=== PATIENT | male | born 1940 | race Caucasian/White ===

== ENCOUNTER 2021-01-29 16:19 | Inpatient (IN) ==
[2021-01-29 17:09] LABS: Basophils # (auto) 0.02 K/uL (0-0.2); Basophils % (auto) 0.1 %; Eosinophils # (auto) 0.19 K/uL (0-0.5); Eosinophils % (auto) 1.3 %; Hematocrit (blood only) 41.7 % (42-52); Hemoglobin 14.8 g/dL (14.0-18.0); Immature Granulocytes # (auto) 0.15 K/uL (0.00-0.02); Lymphocytes # (auto) 1.71 K/uL (1.2-3.4); Lymphocytes % (auto) 11.8 %; Mean Corpuscular Hgb Conc 35.5 g/dL (32-36); Mean Corpuscular Volume 81.8 fL (80-100); Mean Platelet Volume 10.5 fL (7.4-10.4); Monocytes # (auto) 0.99 K/uL (0.11-0.59); Monocytes % (auto) 6.8 %; Neutrophils # (auto) 11.44 K/uL (1.4-6.5); Platelet Count 144 K/uL (130-400); RDW Standard Deviation 41.9 fL (36.4-46.3)
[2021-01-29 17:26] LABS: Albumin Globulin Ratio 1.2 (0.9-2); Albumin Level 3.7 gm/dl (3.4-5.0); BUN Creatinine Ratio 17.8 (10-20); Bilirubin,Total 1.4 mg/dl (0.2-1); Calcium 9.5 mg/dl (8.5-10.1); Est GFR (African American) 57.8 ml/min; Est GFR (Non-African American) 49.9 ml/min; Globulin 3.2 gm/dl (2.5-4.0); Potassium 4.4 mmol/L (3.5-5.1); Total Protein 6.9 gm/dl (6.4-8.2)
[2021-01-29 17:35] LABS: INR 1.1 (0.9-1.1); Partial Thromboplastin Ratio 0.9; Partial Thromboplastin Time 24.9 Seconds (21.0-31.0); Prothrombin Time 10.9 Seconds (9.0-12.0)
[2021-01-29] MEDS ORDERED: SODIUM CHLORIDE 0.9% 1000ML 1,000 ML IV SCH ×2 (18:15→23:38)
[2021-01-29] MEDS ORDERED: ACETAMINOPHEN 1,000 MG/100 ML VIAL IV STA (18:15)
[2021-01-29 18:32] LABS: Appearance Urine Clear (Clear); Bacteria Urine Automated Negative (Negative); Bilirubin Urine Negative (Negative); Blood Urine Trace (Negative); Cast Urine Automated 0 /lpf (0-5); Color Urine Yellow; Epithelial Cell Urine Auto 0-5 /lpf (0-5); Glucose Urine UA Negative (Negative); Ketones Urine Negative (Negative); Leukocyte Esterase Urine Negative (Negative); Nitrite Urine Negative (Negative); Protein Urine Negative (Negative); RBC Urine Automated 0-4 /hpf (0-4); Specific Gravity Urine 1.012 (1.000-1.030); Urobilinogen Urine Negative (Negative); WBC Urine Automated 0 /hpf (0-5); pH Urine 8.5 (4.5-7.5)
--- NOTE | 2021-01-29 18:57 | XRay Report ---
XR pelvis 1-2V routine CLINICAL HISTORY: trauma COMPARISON: None. DISCUSSION: No definite acute fracture or dislocation seen, however evaluation is significantly limited due to se mary diffuse osteopenia, soft tissue edema and multiple gas-filled loops of bowel within upper limits of normal for size. Vascular stent is seen projecting to the anatomical region of aorta. IMPRESSION: As above. ACT 112: Negative or not required by law. The above report was generated using voice recognition software. It may contain grammatical, syntax o r spelling errors. Electronically signed by: Leia Rowan DO 01/29/2021 6:55 PM
--- NOTE | 2021-01-29 19:10 | XRay Report ---
XR chest 1V portable CLINICAL HISTORY: trauma COMPARISON STUDY: No previous studies for comparison. FINDINGS: No pneumothorax. No pleural effusion. Patchy reticular nodular opacities are seen at the right lower lung and might represent atelectasis o r infiltrate. Cardiomediastinal silhouette is within normal limits in size. No significant pulmonary vascular congestion.. Aorta is tortuous and calcified. Osseous structures: Osteopenia. Vertebral bodies are not well seen. IMPRESSION: 1. Opacities at the right mid-lower lung region might represent atelectasis or infiltrative process. 2. The rest of findings as above. ACT 112: Negative or not required by law. The above report was generated using voice recognition software. It may contain grammatical, syntax o r spelling errors. Electronically signed by: Leia Rowan DO 01/29/2021 7:08 PM
--- NOTE | 2021-01-29 19:35 | CT Scan Report ---
CT head/brain wo con CLINICAL HISTORY: trauma COMPARISON STUDY: No previous studies for comparison. TECHNIQUE: Axial CT of the brain is performed from the vertex to the skull base. IV contrast was not administered for this examination. A dose lowering technique was utilized adhering to the principles of ALARA. CT DOSE: FINDINGS: No intra or extra-axial mass lesions are visualized. There is no CT evidence of acute cortical infarc tion. There is no evidence of midline shift. There is no acute hemorrhage. No acute depressed calvar ial fractures are visualized. There are patchy white matter hypodensities likely on a small vessel basis. Atrophic changes of brain parenchyma are seen and associated with ex vacuo dilatation of ventricles. There is no evidence of acute sinusitis IMPRESSION: 1. No acute intracranial hemorrhage, no midline shift or space occupying lesions. 2. No acute depressed skull fractures seen. 3. Atrophic changes of brain parenchyma and chronic small vessel ischemia. ACT 112: Negative or not required by law. The above report was generated using voice recognition software. It may contain grammatical, syntax o r spelling errors. Electronically signed by: Leia Rowan DO 01/29/2021 7:33 PM
--- NOTE | 2021-01-29 19:41 | CT Scan Report ---
CT OF THE CERVICAL SPINE CLINICAL HISTORY: trauma COMPARISON STUDY: No previous studies for comparison. CT DOSE: TECHNIQUE: CT scan of the cervical spine was performed from the skull base to the thoracic inlet. Dadie ges are reviewed in the axial, sagittal, and coronal planes. IV contrast was not administered for thi s examination. A dose lowering technique was utilized adhering to the principles of ALARA. FINDINGS: The visualized portions of the lung apices reveal no evidence of pneumothorax. The prevertebral soft tissues are normal. No fractures or subluxations are visualized. Evaluation is limited due to osteopenia. Vertebral body heights are maintained. Multilevel intervertebral disc space narrowing with posterior osteophytes are seen. Minimal narrowing of the central canal is seen at the C6-C7 level associated with posterior osteophyt es and uncovertebral joint space narrowing. Mild neural foraminal narrowing is seen on the right at the C5-C6 level. IMPRESSION: No acute fracture or traumatic malalignment. Multilevel degenerative changes as detailed above. ACT 112: Negative or not required by law. The above report was generated using voice recognition software. It may contain grammatical, syntax o r spelling errors. Electronically signed by: Leia Rowan DO 01/29/2021 7:39 PM
--- NOTE | 2021-01-29 19:46 | CT Scan Report ---
CT thoracic spine wo con CT DOSE: 2779.34 mGy.cm CLINICAL HISTORY: trauma TECHNIQUE: A dose lowering technique was utilized adhering to the principles of ALARA. COMPARISON STUDY: None. FINDINGS: Mild thoracic dextroscoliosis is seen. Osseous structures are diffusely demineralized. No acute fract ure or traumatic malalignment is seen. No pneumothorax is demonstrated. Mild centrilobular upper lobe predominant emphysema is seen. Normal thoracic kyphosis is preserved. Vertebral body heights are maintained. Few intervertebral disc spaces are slightly narrowed and show anterior osteophytes. Central canal is patent. No significant neural foraminal stenosis is seen. IMPRESSION: No evidence of acute fracture or traumatic malalignment. Osteopenia. Multilevel degenerative changes as detailed above. ACT 112: Negative or not required by law. The above report was generated using voice recognition software. It may contain grammatical, syntax o r spelling errors. Electronically signed by: Leia Rowan DO 01/29/2021 7:44 PM
[2021-01-29] MEDS ORDERED: ALBUT/IPRATROP 3MG/0.5MG NEB 3 ML VIAL NEB STA (19:57)
[2021-01-29] MEDS ORDERED: PIPERACILLIN/TAZOBACTAM 4.5 GM/120 ML BAG IV ONE (19:58)
[2021-01-29] MEDS ORDERED: PIPERACILL/TAZOBAC CONSULT ACTIVE PRN (19:58)
--- NOTE | 2021-01-29 20:00 | CT Scan Report ---
CT lumbar spine wo con CT DOSE: CLINICAL HISTORY: trauma TECHNIQUE: Helical images were acquired in transverse plane. Reformatted sagittal and coronal images were reviewed. A dose lowering technique was utilized adhering to the principles of ALARA. CONTRAST: No contrast was administered COMPARISON STUDY: None. FINDINGS: Transverse fracture deformity of the L1 is seen with mild decrease in vertebral body height. Fracture line is extending from anterior to posterior aspect of the body of the L1 without evidence of involv ement of posterior elements. Transverse and spinous processes are preserved. No narrowing of the cent ral canal is seen at this level. No definite other fractures are seen seen however evaluation is limited due to diffuse osteopenia. Minimal anterolisthesis of L4 on L5 is seen. Multilevel intervertebral disc space narrowing with subchondral sclerosis and cyst as well as osteoph ytes are seen. Minimal central canal stenosis is seen at T12-L1, L2-L3, L3-L4 levels. Prominent bulge of the disc and severe stenosis of the central canal is seen at L4-L5 level and also associated with prominent degenerative/hypertrophic changes of facet joints. Mild neural foraminal stenosis is seen bilaterally. Metallic vascular stent is seen within aortic lumen. Evaluation is limited on this nondedicated exam. IMPRESSION: Transverse fracture of L1 body with mild decrease of its height. Posterior elements are not involved. No central canal stenosis is seen at this level. Report will be sent to emergency Department. Multilevel degenerative changes as detailed above. Osteopenia limits evaluation. Intra-aortic metallic stent graft. ACT 112: Negative or not required by law. The above report was generated using voice recognition software. It may contain grammatical, syntax o r spelling errors. Electronically signed by: Leia Rowan DO 01/29/2021 7:59 PM
--- NOTE | 2021-01-29 20:23 | Emergency Department Note ---
History of Present Illness General Chief complaint: Fall Time Seen by Provider: 01/29/21 17:43 Source: family Mode of arrival: EMS Limitations: altered mental status History of Present Illness Provider complaint: ams, fall overnight Onset (ago): hour(s) Location: head and back Severity: moderate Associated symptoms: + loss of appetite; no headaches or no nausea/vomiting Treatments prior to arrival: none This is an 81-year-old male presents emergency department with family at bedside due to concern for altered mentation and recent fall overnight. Daughter and son-in-law at bedside state patient lives with them, has his own room and bathroom. They state they heard a thud in the middle the night and were concerned that he fell. When they got to his bathroom, the patient had already gotten back up. He admitted he had fallen but stated he was not injured and wanted to go back to sleep. They state patient typically gets up in the middle the night to use the restroom. Patient otherwise been acting his usual state of health prior to the fall earlier that day. After waking up today following the fall, patient has been more confused than usual. Patient began complaining of increasing back pain. They state he does have a history of back pain and does intermittently see a chiropractor however he stated that this was worse than his baseline and due to the concern that he was confused and appeared to be in worsening pain they were concerned for occult traumatic injury given the fall overnight and called 911 to have the patient brought to the emergency room. Patient afebrile and hemodynamically stable here. Patient is confused, however does state that his back hurts and believes he hit his head. Family denies any recent change in medications. No recent fevers or illness. No history of recurrent falls. They state patient does take a low-dose aspirin, no other antiplatelet or anticoagulation therapy. They state they did not find any evidence for injury or trauma when they evaluated him overnight. An order was placed for continuous cardiac monitoring. The monitor shows a rate of _80__ with _normal sinus_ rhythm. Home Medications Medication Instructions Recorded Confirmed Type albuterol sulfate 90 mcg/actuation 2 puff INHALATION Q4 PRN 01/29/21 01/29/21 History aerosol inhaler aspirin 81 mg tablet,delayed 81 mg PO QAM 01/29/21 01/29/21 History release (Aspirin Low Dose) atorvastatin 40 mg tablet 50 mg PO HS 01/29/21 01/29/21 History carvedilol 6.25 mg tablet 6.25 mg PO BID 01/29/21 01/29/21 History fluticasone propionate 110 2 puff INHALATION BID 01/29/21 01/29/21 History mcg/actuation HFA aerosol inhaler (Flovent HFA) losartan 25 mg tablet 25 mg PO QAM 01/29/21 01/29/21 History metformin 500 mg tablet 500 mg PO BID 01/29/21 01/29/21 History Allergies Allergy/AdvReac Type Severity Reaction Status Date / Time ezetimibe [From Vytorin] AdvReac Intermediate Unknown Verified 01/29/21 17:23 simvastatin [From Vytorin] AdvReac Intermediate Unknown Verified 01/29/21 17:23 Past Med/Surg History Social History Smoking Status: Former smoker Preferred Language: Bolivian Communication Ability: Effective Beliefs That Will Affect Care: None marital status: / Current Living Situation: Family How many Children do You have: 1 Feels Safe at Home: Yes Assistive Devices: Denture - Upper and Walker Review of Systems A total of 10 systems reviewed and were otherwise negative All systems reviewed & are unremarkable except as noted in HPI & below Physical Exam Vital Signs Vital Signs - 24 hr 01/29/21 16:48 01/29/21 18:00 01/29/21 18:30 Temperature 36.5 C Temperature Source Oral Pulse Rate 96 H 88 96 H Pulse Rate [Apical] Pulse Rate from SpO2 Sensor 87 97 H Respiratory Rate 24 25 H 21 Respiratory Effort / Characteristics Respiratory Depth Normal Blood Pressure 189/114 H 161/106 H 146/95 H Blood Pressure Mean 139 124 112 Blood Pressure Position Lying Pulse Oximetry 97 96 96 Oxygen Delivery Method Room Air Room Air Fraction of Inspired Oxygen Sepsis Recent Fever Within 48 Hours No Sepsis New/Unexplained Change in Mental Status No Sepsis Action Taken by Nursing No Action Required 01/29/21 19:00 01/29/21 19:30 01/29/21 20:08 Temperature Temperature Source Pulse Rate 88 85 Pulse Rate [Apical] 87 Pulse Rate from SpO2 Sensor 88 85 Respiratory Rate 18 20 14 Respiratory Effort / Characteristics Non-Labored Spontaneous Respiratory Depth Blood Pressure 167/108 H 180/115 H Blood Pressure Mean 127 136 Blood Pressure Position Pulse Oximetry 95 96 95 Oxygen Delivery Method Room Air Room Air Room Air Fraction of Inspired Oxygen 21 Sepsis Recent Fever Within 48 Hours Sepsis New/Unexplained Change in Mental Status Sepsis Action Taken by Nursing GENERAL: alert, well appearing, well nourished, no distress, non-toxic HEAD: nc/at, no evidence of facial trauma, no forrest signs, no raccoon eyes EYE EXAM: normal conjunctiva, PERRL and EOM's grossly intact OROPHARYNX: no exudate, no erythema, lips, buccal mucosa, and tongue normal and mucous membranes are moist NECK: supple, no nuchal rigidity, no adenopathy, non-tender LUNGS: Clear to auscultation. Normal chest wall mechanics, no w/r/r HEART: no murmurs, S1 normal and S2 normal ABDOMEN: abdomen soft, non-tender, normo-active bowel sounds, no masses, no rebound or guarding. BACK: Back is symmetrical on inspection and there is no deformity, tender to palpation over the lower T and upper L spine, no CVA tenderness. No ecchymosis or crepitus. SKIN: no rashes and no bruising UPPER EXTREMITIES: upper extremities are grossly normal. FROM, nml pulses b/l. LOWER EXTREMITIES: No pitting edema. FROM, nml pulses b/l. NEURO EXAM: Alert but confused, cranial nerves II-XII grossly intact, normal speech, no gross weakness of arms, no gross weakness of legs. Gross sensation intact. Course Course 2021: Updated pt and family at bedside. 2027: Discussed with Dr. Bob. He can see him in the morning. 2099: DIscussed with Dr. Nagel. Administered Medications Acetaminophen (Acetaminophen 325 Mg Tab) 650 mg PO Q4H PRN PRN Reason: Pain or Fever Stop: 02/28/21 23:37 Last Admin: 01/30/21 12:23 Dose: 650 mg Documented by: [id number] Aspirin (Aspirin 81 Mg Ectab) 81 mg PO QAM [facility] Stop: 03/01/21 08:59 Last Admin: 01/30/21 08:12 Dose: 81 mg Documented by: [id number] Carvedilol (Carvedilol 6.25 Mg Tab) 6.25 mg PO BID [facility] Stop: 03/01/21 08:59 Last Admin: 01/30/21 19:35 Dose: 6.25 mg Documented by: [id number] Admin: 01/30/21 08:12 Dose: 6.25 mg Documented by: [id number] Docusate Sodium (Docusate Sodium 100 Mg Cap) 100 mg PO BID [facility] Stop: 02/04/21 11:59 Last Admin: 01/30/21 19:35 Dose: 100 mg Documented by: [id number] Admin: 01/30/21 12:23 Dose: 100 mg Documented by: [id number] Fluticasone Furoate (Fluticasone Furoate 100mcg 14 Puffs/Inhaler) 1 puffs INH DAILY [facility] Stop: 03/01/21 08:59 Last Admin: 01/30/21 08:15 Dose: 1 puffs Documented by: [id number] Heparin Sodium (Porcine) (Heparin Sod 5,000 Unit/0.5 Ml Vial) 5,000 units SQ Q12 [facility] Stop: 03/01/21 08:59 Last Admin: 01/30/21 19:34 Dose: 5,000 units Documented by: [id number] Admin: 01/30/21 08:15 Dose: 5,000 units Documented by: [id number] Hydromorphone HCl (Hydromorphone Inj 0.5 Mg/0.5 Ml Syr) 0.5 mg IV Q3H PRN PRN Reason: Pain Stop: 02/13/21 00:08 Last Admin: 01/30/21 22:28 Dose: 0.5 mg Documented by: [id number] Admin: 01/30/21 19:33 Dose: 0.5 mg Documented by: [id number] Admin: 01/30/21 12:46 Dose: 0.5 mg Documented by: [id number] Admin: 01/30/21 06:59 Dose: 0.5 mg Documented by: [id number] Admin: 01/30/21 00:40 Dose: 0.5 mg Documented by: [id number] Doxycycline Hyclate 100 mg/ (Dextrose) 110 mls @ 50 mls/hr IV Q12H [facility] Stop: 02/06/21 00:00 Last Infusion: 01/30/21 14:38 Dose: 0 mls/hr Documented by: [id number] Admin: 01/30/21 12:16 Dose: 50 mls/hr Documented by: [id number] Infusion: 01/30/21 02:54 Dose: 0 mls/hr Documented by: [id number] Admin: 01/30/21 01:01 Dose: 50 mls/hr Documented by: [id number] Piperacillin Sod/Tazobactam (Sod 3.375 gm/ Dextrose) 115 mls @ 28.75 mls/hr IV Q8H [facility]; Protocol Stop: 02/06/21 00:00 Last Infusion: 01/30/21 21:14 Dose: 0 mls/hr Documented by: [id number] Admin: 01/30/21 17:12 Dose: 28.8 mls/hr Documented by: [id number] Infusion: 01/30/21 16:27 Dose: 0 mls/hr Documented by: [id number] Infusion: 01/30/21 14:53 Dose: 28.8 mls/hr Documented by: [id number] Infusion: 01/30/21 12:19 Dose: 0 mls/hr Documented by: [id number] Admin: 01/30/21 09:52 Dose: 28.8 mls/hr Documented by: [id number] Infusion: 01/30/21 06:01 Dose: 0 mls/hr Documented by: [id number] Admin: 01/30/21 02:54 Dose: 28.8 mls/hr Documented by: [id number] Insulin Aspart (Insulin Aspart 100 Units/Ml 3 Ml Pen) 0 units SC ACHS [facility] Stop: 03/01/21 07:29 Last Admin: 01/30/21 21:10 Dose: 2 units Documented by: [id number] Cosigned by: [id number] Admin: 01/30/21 17:49 Dose: 3 units Documented by: [id number] Cosigned by: [id number] Admin: 01/30/21 12:23 Dose: 2 units Documented by: [id number] Cosigned by: [id number] Admin: 01/30/21 08:21 Dose: 2 units Documented by: [id number] Cosigned by: [id number] Losartan Potassium (Losartan Potassium 25 Mg Tab) 25 mg PO QAM [facility] Stop: 03/01/21 08:59 Last Admin: 01/30/21 08:12 Dose: 25 mg Documented by: [id number] Magnesium Oxide (Magnesium Oxide 400 Mg Tab) 400 mg PO QAM [facility] Stop: 03/01/21 14:44 Last Admin: 01/30/21 15:47 Dose: 400 mg Documented by: [id number] Ondansetron HCl (Ondansetron Inj 2 Mg/Ml 2 Ml Vial) 4 mg IV Q6H PRN PRN Reason: Nausea Stop: 02/28/21 23:37 Last Admin: 01/30/21 15:46 Dose: 4 mg Documented by: [id number] Tizanidine HCl (Tizanidine Hcl 4 Mg Tablet) 2 mg PO TID [facility] Stop: 02/02/21 20:59 Last Admin: 01/30/21 19:35 Dose: 2 mg Documented by: [id number] Tramadol HCl (Tramadol Hcl 50 Mg Tablet) 25 mg PO Q6H PRN PRN Reason: Pain Stop: 02/28/21 23:37 Last Admin: 01/30/21 15:58 Dose: 25 mg Documented by: [id number] Admin: 01/30/21 08:11 Dose: 25 mg Documented by: [id number] Discontinued Medications Albuterol (Albut/Ipratrop 3mg/0.5mg Neb 3 Ml Vial) 3 ml NEB NOW STA Stop: 01/29/21 19:58 Last Admin: 01/29/21 20:07 Dose: 3 ml Documented by: [id number] Fentanyl Citrate (Fentanyl Citrate 100 Mcg/2 Ml Vial) 50 mcg IV NOW STA Stop: 01/29/21 20:33 Last Admin: 01/29/21 21:00 Dose: 50 mcg Documented by: [id number] Acetaminophen (Ofirmev) 1,000 mg in 100 mls @ 400 mls/hr IV NOW STA Stop: 01/29/21 18:29 Last Infusion: 01/29/21 20:10 Dose: 0 mls/hr Documented by: [id number] Admin: 01/29/21 19:04 Dose: 400 mls/hr Documented by: [id number] Sodium Chloride (Nss 1000ml) 1,000 mls @ 125 mls/hr IV .Q8H [facility] Stop: 02/28/21 18:14 Last Infusion: 01/29/21 23:39 Dose: 0 mls/hr Documented by: [id number] Admin: 01/29/21 19:04 Dose: 125 mls/hr Documented by: [id number] Piperacillin Sod/Tazobactam Sod (Zosyn) 4.5 gm in 120 mls @ 240 mls/hr IV NOW ONE Stop: 01/29/21 20:27 Last Infusion: 01/29/21 21:03 Dose: 0 mls/hr Documented by: [id number] Admin: 01/29/21 20:11 Dose: 240 mls/hr Documented by: [id number] Sodium Chloride (Nss 1000ml) 1,000 mls @ 80 mls/hr IV .[id number] [facility] Stop: 01/30/21 12:07 Last Infusion: 01/30/21 13:03 Dose: 0 mls/hr Documented by: [id number] Admin: 01/30/21 00:31 Dose: 80 mls/hr Documented by: [id number] Medical Decision Making Differential Diagnosis Differential diagnoses includes but is not limited to toxic, metabolic, infectious, traumatic, cardiac, neurologic, hematologic, psychiatric and inflammatory etiologies. Medical Records Attestation: I reviewed the patient's medical records. Home Medications Current Medication List: was personally reviewed by me Laboratory Data Attestation: I reviewed the patient's lab results. Result diagrams: 01/30/21 05:25 01/30/21 05:25 Lab Results 01/29/21 01/29/21 01/29/21 Range/Units 16:37 16:37 16:37 WBC 14.50 H (4.8-10.8) K/uL RBC 5.10 (4.7-6.1) M/uL Hgb 14.8 (14.0-18.0) g/dL Hct 41.7 L (42-52) % MCV 81.8 (80-100) fL MCH 29.0 (25-34) pg MCHC 35.5 (32-36) g/dL RDW Std Deviation 41.9 (36.4-46.3) fL RDW Coeff of Ian 14.0 (11.5-14.5) % Plt Count 144 (130-400) K/uL MPV 10.5 H (7.4-10.4) fL Immature Gran % (Auto) 1.0 % Neut % (Auto) 79.0 % Lymph % (Auto) 11.8 % [place]ner % (Auto) 6.8 % Eos % (Auto) 1.3 % Baso % (Auto) 0.1 % Neut # (Auto) 11.44 H (1.4-6.5) K/uL Lymph # (Auto) 1.71 (1.2-3.4) K/uL [place]ner # (Auto) 0.99 H (0.11-0.59) K/uL Eos # (Auto) 0.19 (0-0.5) K/uL Baso # (Auto) 0.02 (0-0.2) K/uL Immature Gran # (Auto) 0.15 H (0.00-0.02) K/uL PT 10.9 (9.0-12.0) Seconds INR 1.1 (0.9-1.1) APTT 24.9 (21.0-31.0) Seconds PTT Ratio 0.9 ABG pH (7.35-7.45) ABG pCO2 (35-46) mmHg ABG pO2 (80-95) mmHg ABG HCO3 (19-24) mmol/L ABG O2 Saturation (90-95) % ABG Base Excess (-9-1.8) mEq/L Ken Test (Pos) Barometric Pressure mm/Hg Oxygen Given Sodium 137 (136-145) mmol/L Potassium 4.4 (3.5-5.1) mmol/L Chloride 109 H (98-107) mmol/L Carbon Dioxide 24 (21-32) mmol/L Anion Gap 4.0 (3-11) BUN 24 H (7-18) mg/dl Creatinine 1.32 (0.6-1.4) mg/dl Est Cr Clr Drug Dosing 46.0 ml/min Est GFR ( Amer) 57.8 ml/min Est GFR (Non-Af Amer) 49.9 ml/min BUN/Creatinine Ratio 17.8 (10-20) Glucose 177 H (70-99) mg/dl Calcium 9.5 (8.5-10.1) mg/dl Total Bilirubin 1.4 H (0.2-1) mg/dl AST 16 (15-37) U/L ALT 29 (12-78) U/L Alkaline Phosphatase 75 (45-117) U/L Troponin I 0.071 H* (0-0.045) ng/ml Total Protein 6.9 (6.4-8.2) gm/dl Albumin 3.7 (3.4-5.0) gm/dl Globulin 3.2 (2.5-4.0) gm/dl Albumin/Globulin Ratio 1.2 (0.9-2) Specimen Hemolysis Urine Color Urine Appearance (Clear) Urine pH (4.5-7.5) Ur Specific [place] (1.000-1.030) Urine Protein (Negative) Urine Glucose (UA) (Negative) Urine Ketones (Negative) Urine Blood (Negative) Urine Nitrite (Negative) Urine Bilirubin (Negative) Urine Urobilinogen (Negative) Ur Leukocyte Esterase (Negative) Urine WBC (Auto) (0-5) /hpf Urine RBC (Auto) (0-4) /hpf U Hyaline Cast (Auto) (0-5) /lpf U Epithel Cells (Auto) (0-5) /lpf Urine Bacteria (Auto) (Negative) COVID-19 Eval Order SARS-CoV-2 (PCR) (Negative) 01/29/21 01/29/21 01/29/21 Range/Units 17:40 20:28 20:28 WBC (4.8-10.8) K/uL RBC (4.7-6.1) M/uL Hgb (14.0-18.0) g/dL Hct (42-52) % MCV (80-100) fL MCH (25-34) pg MCHC (32-36) g/dL RDW Std Deviation (36.4-46.3) fL RDW Coeff of Ian (11.5-14.5) % Plt Count (130-400) K/uL MPV (7.4-10.4) fL Immature Gran % (Auto) % Neut % (Auto) % Lymph % (Auto) % Sumner % (Auto) % Eos % (Auto) % Baso % (Auto) % Neut # (Auto) (1.4-6.5) K/uL Lymph # (Auto) (1.2-3.4) K/uL [place]ner # (Auto) (0.11-0.59) K/uL Eos # (Auto) (0-0.5) K/uL Baso # (Auto) (0-0.2) K/uL Immature Gran # (Auto) (0.00-0.02) K/uL PT (9.0-12.0) Seconds INR (0.9-1.1) APTT (21.0-31.0) Seconds PTT Ratio ABG pH (7.35-7.45) ABG pCO2 (35-46) mmHg ABG pO2 (80-95) mmHg ABG HCO3 (19-24) mmol/L ABG O2 Saturation (90-95) % ABG Base Excess (-9-1.8) mEq/L Ken Test (Pos) Barometric Pressure mm/Hg Oxygen Given Sodium (136-145) mmol/L Potassium (3.5-5.1) mmol/L Chloride (98-107) mmol/L Carbon Dioxide (21-32) mmol/L Anion Gap (3-11) BUN (7-18) mg/dl Creatinine (0.6-1.4) mg/dl Est Cr Clr Drug Dosing ml/min Est GFR ( Amer) ml/min Est GFR (Non-Af Amer) ml/min BUN/Creatinine Ratio (10-20) Glucose (70-99) mg/dl Calcium (8.5-10.1) mg/dl Total Bilirubin (0.2-1) mg/dl AST (15-37) U/L ALT (12-78) U/L Alkaline Phosphatase (45-117) U/L Troponin I (0-0.045) ng/ml Total Protein (6.4-8.2) gm/dl Albumin (3.4-5.0) gm/dl Globulin (2.5-4.0) gm/dl Albumin/Globulin Ratio (0.9-2) Specimen Hemolysis Urine Color Yellow Urine Appearance Clear (Clear) Urine pH 8.5 H (4.5-7.5) Ur Specific [place] 1.012 (1.000-1.030) Urine Protein Negative (Negative) Urine Glucose (UA) Negative (Negative) Urine Ketones Negative (Negative) Urine Blood Trace H (Negative) Urine Nitrite Negative (Negative) Urine Bilirubin Negative (Negative) Urine Urobilinogen Negative (Negative) Ur Leukocyte Esterase Negative (Negative) Urine WBC (Auto) 0 (0-5) /hpf Urine RBC (Auto) 0-4 (0-4) /hpf U Hyaline Cast (Auto) 0 (0-5) /lpf U Epithel Cells (Auto) 0-5 (0-5) /lpf Urine Bacteria (Auto) Negative (Negative) COVID-19 Eval Order Covid19 at [facility] SARS-CoV-2 (PCR) NEGATIVE (Negative) 01/29/21 Range/Units 20:52 WBC (4.8-10.8) K/uL RBC (4.7-6.1) M/uL Hgb (14.0-18.0) g/dL Hct (42-52) % MCV (80-100) fL MCH (25-34) pg MCHC (32-36) g/dL RDW Std Deviation (36.4-46.3) fL RDW Coeff of Ian (11.5-14.5) % Plt Count (130-400) K/uL MPV (7.4-10.4) fL Immature Gran % (Auto) % Neut % (Auto) % Lymph % (Auto) % [place] % (Auto) % Eos % (Auto) % Baso % (Auto) % Neut # (Auto) (1.4-6.5) K/uL Lymph # (Auto) (1.2-3.4) K/uL [place] # (Auto) (0.11-0.59) K/uL Eos # (Auto) (0-0.5) K/uL Baso # (Auto) (0-0.2) K/uL Immature Gran # (Auto) (0.00-0.02) K/uL PT (9.0-12.0) Seconds INR (0.9-1.1) APTT (21.0-31.0) Seconds PTT Ratio ABG pH 7.60 H* (7.35-7.45) ABG pCO2 22 L (35-46) mmHg ABG pO2 90 (80-95) mmHg ABG HCO3 21 (19-24) mmol/L ABG O2 Saturation 97.9 H (90-95) % ABG Base Excess 1.3 (-9-1.8) mEq/L Ken Test Pos (Pos) Barometric Pressure 732.7 mm/Hg Oxygen Given ROOM AIR Sodium (136-145) mmol/L Potassium (3.5-5.1) mmol/L Chloride (98-107) mmol/L Carbon Dioxide (21-32) mmol/L Anion Gap (3-11) BUN (7-18) mg/dl Creatinine (0.6-1.4) mg/dl Est Cr Clr Drug Dosing ml/min Est GFR ( Amer) ml/min Est GFR (Non-Af Amer) ml/min BUN/Creatinine Ratio (10-20) Glucose (70-99) mg/dl Calcium (8.5-10.1) mg/dl Total Bilirubin (0.2-1) mg/dl AST (15-37) U/L ALT (12-78) U/L Alkaline Phosphatase (45-117) U/L Troponin I (0-0.045) ng/ml Total Protein (6.4-8.2) gm/dl Albumin (3.4-5.0) gm/dl Globulin (2.5-4.0) gm/dl Albumin/Globulin Ratio (0.9-2) Specimen Hemolysis Urine Color Urine Appearance (Clear) Urine pH (4.5-7.5) Ur Specific [place] (1.000-1.030) Urine Protein (Negative) Urine Glucose (UA) (Negative) Urine Ketones (Negative) Urine Blood (Negative) Urine Nitrite (Negative) Urine Bilirubin (Negative) Urine Urobilinogen (Negative) Ur Leukocyte Esterase (Negative) Urine WBC (Auto) (0-5) /hpf Urine RBC (Auto) (0-4) /hpf U Hyaline Cast (Auto) (0-5) /lpf U Epithel Cells (Auto) (0-5) /lpf Urine Bacteria (Auto) (Negative) COVID-19 Eval Order SARS-CoV-2 (PCR) (Negative) Imaging Data Radiologist's Impression: Cervical Spine CT 01/29/21 18:15 CT OF THE CERVICAL SPINE CLINICAL HISTORY: trauma COMPARISON STUDY: No previous studies for comparison. CT DOSE: TECHNIQUE: CT scan of the cervical spine was performed from the skull base to the thoracic inlet. Images are reviewed in the axial, sagittal, and coronal planes. IV contrast was not administered for this examination. A dose lowering technique was utilized adhering to the principles of ALARA. FINDINGS: The visualized portions of the lung apices reveal no evidence of pneumothorax. The prevertebral soft tissues are normal. No fractures or subluxations are visualized. Evaluation is limited due to osteopenia. Vertebral body heights are maintained. Multilevel intervertebral disc space narrowing with posterior osteophytes are seen. Minimal narrowing of the central canal is seen at the C6-C7 level associated with posterior osteophytes and uncovertebral joint space narrowing. Mild neural foraminal narrowing is seen on the right at the C5-C6 level. IMPRESSION: No acute fracture or traumatic malalignment. Multilevel degenerative changes as detailed above. ACT 112: Negative or not required by law. The above report was generated using voice recognition software. It may contain grammatical, syntax or spelling errors. Electronically signed by: Leia Rowan DO 01/29/2021 7:39 PM Chest X-Ray 01/29/21 18:15 XR chest 1V portable CLINICAL HISTORY: trauma COMPARISON STUDY: No previous studies for comparison. FINDINGS: No pneumothorax. No pleural effusion. Patchy reticular nodular opacities are seen at the right lower lung and might represent atelectasis or infiltrate. Cardiomediastinal silhouette is within normal limits in size. No significant pulmonary vascular congestion.. Aorta is tortuous and calcified. Osseous structures: Osteopenia. Vertebral bodies are not well seen. IMPRESSION: 1. Opacities at the right mid-lower lung region might represent atelectasis or infiltrative process. 2. The rest of findings as above. ACT 112: Negative or not required by law. The above report was generated using voice recognition software. It may contain grammatical, syntax or spelling errors. Electronically signed by: Leia Rowan DO 01/29/2021 7:[address] 01/29/21 18:15 CT head/brain wo con CLINICAL HISTORY: trauma COMPARISON STUDY: No previous studies for comparison. TECHNIQUE: Axial CT of the brain is performed from the vertex to the skull base. IV contrast was not administered for this examination. A dose lowering technique was utilized adhering to the principles of ALARA. CT DOSE: FINDINGS: No intra or extra-axial mass lesions are visualized. There is no CT evidence of acute cortical infarction. There is no evidence of midline shift. There is no acute hemorrhage. No acute depressed calvarial fractures are visualized. There are patchy white matter hypodensities likely on a small vessel basis. Atrophic changes of brain parenchyma are seen and associated with ex vacuo dilat ation of ventricles. There is no evidence of acute sinusitis IMPRESSION: 1. No acute intracranial hemorrhage, no midline shift or space occupying lesions. 2. No acute depressed skull fractures seen. 3. Atrophic changes of brain parenchyma and chronic small vessel ischemia. ACT 112: Negative or not required by law. The above report was generated using voice recognition software. It may contain grammatical, syntax or spelling errors. Electronically signed by: Leia Rowan DO 01/29/2021 7:[address] 01/29/21 18:15 CT lumbar spine wo con CT DOSE: CLINICAL HISTORY: trauma TECHNIQUE: Helical images were acquired in transverse plane. Reformatted sagittal and coronal images were reviewed. A dose lowering technique was utilized adhering to the principles of ALARA. CONTRAST: No contrast was administered COMPARISON STUDY: None. FINDINGS: Transverse fracture deformity of the L1 is seen with mild decrease in vertebral body height. Fracture line is extending from anterior to posterior aspect of the body of the L1 without evidence of involvement of posterior elements. Transverse and spinous processes are preserved. No narrowing of the central canal is seen at this level. No definite other fractures are seen seen however evaluation is limited due to diffuse osteopenia. Minimal anterolisthesis of L4 on L5 is seen. Multilevel intervertebral disc space narrowing with subchondral sclerosis and cyst as well as osteophytes are seen. Minimal central canal stenosis is seen at T12-L1, L2-L3, L3-L4 levels. Prominent bulge of the disc and severe stenosis of the central canal is seen at L4-L5 level and also associated with prominent degenerative/hypertrophic changes of facet joints. Mild neural foraminal stenosis is seen bilaterally. Metallic vascular stent is seen within aortic lumen. Evaluation is limited on this nondedicated exam. IMPRESSION: Transverse fracture of L1 body with mild decrease of its height. Posterior elements are not involved. No central canal stenosis is seen at this level. Report will be sent to emergency Department. Multilevel degenerative changes as detailed above. Osteopenia limits evaluation. Intra-aortic metallic stent graft. ACT 112: Negative or not required by law. The above report was generated using voice recognition software. It may contain grammatical, syntax or spelling errors. Electronically signed by: Leia Rowan DO 01/29/2021 7:59 PM Pelvis X-Ray 01/29/21 18:15 XR pelvis 1-2V routine CLINICAL HISTORY: trauma COMPARISON: None. DISCUSSION: No definite acute fracture or dislocation seen, however evaluation is significantly limited due to severe diffuse osteopenia, soft tissue edema and multiple gas-filled loops of bowel within upper limits of normal for size. Vascular stent is seen projecting to the anatomical region of aorta. IMPRESSION: As above. ACT 112: Negative or not required by law. The above report was generated using voice recognition software. It may contain grammatical, syntax or spelling errors. Electronically signed by: Leia Rowan DO 01/29/2021 6:[address] 01/29/21 18:15 CT thoracic spine wo con CT DOSE: 2779.34 mGy.cm CLINICAL HISTORY: trauma TECHNIQUE: A dose lowering technique was utilized adhering to the principles of ALARA. COMPARISON STUDY: None. FINDINGS: Mild thoracic dextroscoliosis is seen. Osseous structures are diffusely demineralized. No acute fracture or traumatic malalignment is seen. No pneumothorax is demonstrated. Mild centrilobular upper lobe predominant emphysema is seen. Normal thoracic kyphosis is preserved. Vertebral body heights are maintained. Few intervertebral disc spaces are slightly narrowed and show anterior osteophytes. Central canal is patent. No significant neural foraminal stenosis is seen. IMPRESSION: No evidence of acute fracture or traumatic malalignment. Osteopenia. Multilevel degenerative changes as detailed above. ACT 112: Negative or not required by law. The above report was generated using voice recognition software. It may contain grammatical, syntax or spelling errors. Electronically signed by: Leia Rowan DO 01/29/2021 7:44 PM MDM Narrative This is an 81-year-old male who presents with family due to concern for altered mental status and recent fall overnight. Patient initially evaluated from a trauma perspective, he was hemodynamically stable and afebrile, complaining of concern for head injury as well as back pain. Per family patient was altered compared to his baseline. CT and x-ray imaging revealed an L1 fracture without retropulsion or central canal compromise as well as a pneumonia noted on chest x-ray. Family denied any recent URI symptoms or fevers. They denied any choking or gagging episodes or history of dysphagia to suggest aspiration however patient covered with Zosyn as a precaution. Patient also found to have an elevated troponin. Is unclear if this could have contributed to the fall ove rnight or is secondary to the current infection. Patient remained hemodynamic stable while in the emergency room. No other evidence of acute trauma was found. Case discussed with hospitalist for additional evaluation and management after discussion with the family. Family verbalized understanding was in agreement with plan. An order was placed for continuous cardiac monitoring. The monitor shows a rate of _82_ with _normal sinus_ rhythm. Impression & Plan AMS (altered mental status), Fracture of lumbar spine, Elevated troponin, Back pain, Pneumonia, Hypomagnesemia Discharge Plan Visit Data Chief Complaint: Fall ED Provider: Yelena Medellin Discharge Problem: AMS (altered mental status), Fracture of lumbar spine, Elevated troponin, Back pain, Pneumonia, Hypomagnesemia Patient Disposition: Admitted As Inpatient Discharge Instructions Interventions: ED Discharge Assessment Last Done: 01/29/21 23:09
[2021-01-29] MEDS ORDERED: fentaNYL citrate 100 MCG/2 ML VIAL IV STA (20:32)
[2021-01-29 21:08] LABS: Base Excess ABG 1.3 mEq/L (-9-1.8); HCO3 ABG 21 mmol/L (19-24); Oxygen Saturation ABG 97.9 % (90-95); PCO2 ABG 22 mmHg (35-46); PO2 ABG 90 mmHg (80-95)
[2021-01-29 21:14] LABS: Allen Test Pos (Pos)
[2021-01-29 22:54] LABS: Troponin I 0.071 ng/ml (0-0.045)
[2021-01-29] MEDS ORDERED: ALBUTEROL HFA 8 GM INHALER INH PRN (23:38)
[2021-01-29] MEDS ORDERED: ALBUT/IPRATROP 3MG/0.5MG NEB 3 ML VIAL NEB PRN (23:38)
[2021-01-29] MEDS ORDERED: DEXTROSE 50% 50 ML SYRINGE IV PRN (23:45)
[2021-01-29] MEDS ORDERED: GLUCOSE 40% GEL 15 GM TUBE PO PRN (23:45)
[2021-01-29] MEDS ORDERED: GLUCOSE 10 TABS/TUBE PO PRN (23:45)
[2021-01-29] MEDS ORDERED: CARBOHYDRATES FOR HYPOGLYCEMIA PO PRN (23:45)
[2021-01-29] MEDS ORDERED: GLUCAGON FOR INJ 1 MG VIAL IM PRN (23:45)
--- NOTE | 2021-01-29 23:46 | History and Physical Report ---
DATE OF ADMISSION: 01/29/2021. CHIEF COMPLAINT: Status post fall, confusion. HISTORY OF PRESENT ILLNESS: An 81-year-old male with past medical history significant for type 2 diabetes, hyperlipidemia, aneurysm of common iliac artery, internal iliac artery, and femoral arteries, hypertension, chronic kidney disease stage III, status post abdominal aortic aneurysm repair, who lives at home with his son. Comes because of fall. As per the family, they heard a fall last night around 4:00 a.m. When they went and checked him, he was standing and complaining of headache and backache and he seemed confused. He was talking about his and seemed confused. In the morning, he was able to eat and drink, but he was not getting better. Complaining of back pain and he was brought into the hospital. Here, CT of the head was okay and imaging studies showed transverse fracture of L1 body with mild decrease of its height. The patient has complaints of back pain and was given a dose of fentanyl. Currently, he says he is comfortable, but somewhat drowsy. Denies any chest pain, denies any nausea, denies abdominal pain, denies any headache. Says he is feeling comfortable, could not get much history from the patient currently. As per the daughter, he was otherwise doing okay. He ambulates with a walker. He can take care of himself. He eats and swallows okay. There is no fevers, no nausea, no diarrhea. The patient complained that he was feeling somewhat dizzy and as per the daughter, he was having some cough. ALLERGIES: VYTORIN. PAST MEDICAL HISTORY: As mentioned above. PAST SURGICAL HISTORY: Abdominal aortic aneurysm repair, cataract surgery, appendectomy. MEDICATIONS: The patient is on albuterol 2 puffs inhalation q. 4 hours p.r.n., aspirin 81 mg p.o. daily, atorvastatin 40 mg p.o. at bedtime, Coreg 6.25 mg p.o. b.i.d., Flovent HFA 2 puffs inhalation b.i.d., losartan 25 mg p.o. a.m., Metformin 500 mg p.o. b.i.d. FAMILY HISTORY: Significant for mother has Alzheimer disease, diabetes, glaucoma, heart disease, triple bypass; father has heart attack; brother has heart attack. SOCIAL HISTORY: , currently lives with his family. Quit smoking in 1995. No alcohol use. No drug use. REVIEW OF SYSTEMS: As per HPI. Rest of the review of systems, could not obtain. PHYSICAL EXAMINATION: GENERAL: The patient is alert and awake, could tell his name, not in acute distress. VITAL SIGNS: Temperature 36.5, pulse 84, respiratory rate 23, blood pressure 150/95, oxygen 98% on 2 liters. HEENT: Pupils equal, round and reactive to light. Oral mucosa moist. NECK: No neck masses. CARDIOVASCULAR: S1 and S2 heard. Regular rate and rhythm. No murmur, no gallop. RESPIRATORY SYSTEM: Normal AP diameter. No accessory muscle use. No wheezing, no crackles. ABDOMEN: Soft, bowel sounds present. Mild abdominal discomfort. CENTRAL NERVOUS SYSTEM: Alert and awake, oriented to name. Obeys simple commands. Moves extremities. EXTREMITIES: No edema, no erythema. LABORATORY DATA: WBC 14.5, hemoglobin 14.8, hematocrit 41.7, platelets 144. PT 10.9, INR 1.1, APTT 24.9. ABG, pH of 7.6, pCO2 of 22, pO2 of 19, bicarbonate 21, oxygen saturation 97%. Sodium 137, potassium 4.4, chloride 109, bicarbonate 24, BUN 24, creatinine 1.3, serum glucose 177, calcium 9.5, total bilirubin 1.4, AST 16, ALT 29, alkaline phosphatase 75. Urinalysis negative. SARS-CoV-2 PCR negative. IMAGING DATA: Thoracic spine CT, no acute findings. Pelvic x-ray, no acute findings. Vascular stent is seen in anatomic region of aorta. Lumbar spine CT, transverse fracture of L1 body with decrease of its height. Posterior elements are not involved. No central canal stenosis is seen. Multilevel degenerative changes seen. CT of the head, no acute findings. Chronic small vessel ischemia. Chest x-ray, opacities of right mid lung zone, might represent atelectasis or infiltrative process. Cervical spine CT, no acute findings. Multilevel degenerative changes. EKG: Normal sinus rhythm at a rate of 88. No significant change was found. ASSESSMENT AND PLAN: This is an 81-year-old male who presents with fall and confusion and found to have pneumonia. 1. Status post fall and the patient is confused possibly from pneumonia. Empirically started on Zosyn and doxycycline. Monitor in the [place] [facility]. PT/OT. Social service to help with discharge planning. Monitor the response. We will also get speech involved to rule out any aspiration. 2. Back pain: L1 fracture on his lumbar spine. Pain control. Will consult ortho. PT, OT. 3. Abdominal discomfort: Will get CT of the abdomen and pelvis. 4. History of diabetes: Hold his metformin. Placed on insulin sliding scale. Follow the blood sugars. 5. History of hypertension: Continue his Coreg and losartan. Will monitor the blood pressure. 6. History of chronic obstructive pulmonary disease: Continue his home inhalers and nebs p.r.n. 7. History of hyperlipidemia: Continue statin. 8. History of coronary artery disease: Continue aspirin, beta ale, and statin. 9. History of chronic kidney disease stage IIIA: Baseline creatinine of around 1.4 , presently with a creatinine of 1.3. Will follow the labs. 10. Mild elevation of total bilirubin: Will follow the repeat labs. AST, ALT, normal 11. Deep venous thrombosis prophylaxis: Lovenox. DISPOSITION: Closely monitor in the med tele. PT/OT prior to discharge. Social service to help with discharge planning. Job ID: [id number] [facility]
[2021-01-30] MEDS: HYDROmorphone INJ 0.5 MG/0.5 ML SYR IV PRN ×5 (00:40→22:28)
[2021-01-30] MEDS: DOXYCYCLINE HYCLATE 100 MG in DEXTROSE 5% 100 ML IV SCH ×2 (01:01→12:16)
[2021-01-30] MEDS: PIPERACILLIN/TAZOBACTAM 3.375 GM in DEXTROSE 5% 100 ML IV SCH ×3 (02:54→17:12)
[2021-01-30 05:54] LABS: Basophils # (auto) 0.02 K/uL (0-0.2); Basophils % (auto) 0.2 %; Eosinophils # (auto) 0.27 K/uL (0-0.5); Eosinophils % (auto) 2.3 %; Hematocrit (blood only) 39.2 % (42-52); Hemoglobin 13.8 g/dL (14.0-18.0); Immature Granulocytes # (auto) 0.11 K/uL (0.00-0.02); Immature Granulocytes % (auto) 0.9 %; Lymphocytes # (auto) 1.37 K/uL (1.2-3.4); Lymphocytes % (auto) 11.5 %; Mean Corpuscular Hgb Conc 35.2 g/dL (32-36); Mean Corpuscular Volume 82.4 fL (80-100); Mean Platelet Volume 10.3 fL (7.4-10.4); Monocytes # (auto) 0.87 K/uL (0.11-0.59); Monocytes % (auto) 7.3 %; Neutrophils # (auto) 9.25 K/uL (1.4-6.5); Neutrophils % (auto) 77.8 %; Platelet Count 111 K/uL (130-400); RDW Standard Deviation 42.3 fL (36.4-46.3); Red Blood Count 4.76 M/uL (4.7-6.1); White Blood Count 11.89 K/uL (4.8-10.8)
[2021-01-30 06:24] LABS: BUN Creatinine Ratio 15.9 (10-20); Calcium 8.5 mg/dl (8.5-10.1); Creatinine Clr Calc Pharmacy 50.5 ml/min; Est GFR (African American) 64.9 ml/min; Magnesium 1.7 mg/dl (1.8-2.4); Potassium 3.9 mmol/L (3.5-5.1)
[2021-01-30 06:57] LABS: Estimated Average Glucose 163 mg/dl; Hemoglobin A1C 7.3 % (4.5-5.6)
[2021-01-30] MEDS: traMADol HCL 50 MG TABLET PO PRN ×2 (08:11→15:58)
[2021-01-30] MEDS: carvediloL 6.25 MG TAB PO SCH ×2 (08:12→19:35)
[2021-01-30] MEDS: LOSARTAN POTASSIUM 25 MG TAB PO SCH (08:12)
[2021-01-30] MEDS: ASPIRIN 81 MG ECTAB PO SCH (08:12)
[2021-01-30] MEDS: HEPARIN SOD 5,000 UNIT/0.5 ML VIAL SQ SCH ×2 (08:15→19:34)
[2021-01-30] MEDS: FLUTICASONE FUROATE 100MCG 14 PUFFS/INHALER INH SCH (08:15)
[2021-01-30] MEDS: INSULIN ASPART 100 UNITS/ML 3 ML PEN SC SCH ×4 (08:21→21:10)
--- NOTE | 2021-01-30 09:07 | CT Scan Report ---
CT SCAN OF THE ABDOMEN AND PELVIS WITHOUT CONTRAST CLINICAL HISTORY: abdominal pain COMPARISON STUDY: No previous studies for comparison. TECHNIQUE: CT scan of the abdomen and pelvis was performed from the lung bases to the proximal femurs . Images are reviewed in the axial, sagittal, and coronal planes. IV contrast was not administered fo r this examination. A dose lowering technique was utilized adhering to the principles of ALARA. CT DOSE: 647.19 mGy.cm FINDINGS: Lower chest: Minimal atelectasis is seen at dependent portions of bilateral lower lobes. Evaluation o f lung parenchyma is limited due to motion artifact. Mild to moderate hiatal hernia. Liver: The unenhanced liver is normal in size, contour, and attenuation. There is no intrahepatic gabriella iary ductal dilatation. Gallbladder: Is fluid-filled with hyperattenuating collection within its dependent portion which coul d represent gallstones or/and sludge. Spleen: Normal in size and attenuation. Pancreas: Unremarkable. Adrenal glands: Unremarkable. Kidneys: The unenhanced kidneys are normal in size without hydronephrosis. No renal calculi are odin ntified. Bilateral renal cysts are seen, evaluation is limited due to lack of IV contrast. Largest cy st is seen on the left and measure 8.7 x 8.1 cm in size. Bowel: Loops of small bowel are nondilated. Loops of large bowel are within upper limits of normal wi th extensive stool content. Small hernia is seen within right abdominal wall contain loops of small a nd large bowel. Evaluation is limited due to lack of contrast and motion artifact. Appendix is not we ll seen. Peritoneum: There is no intraperitoneal free air or abdominal ascites. Vasculature: Tortuous abdominal aorta with intravascular metallic graft within its distal aspect exte nding to the right and left iliac arteries. Calcifications of aortic wall. Distal aspect of the right external iliac artery is dilated measuring 2.1 cm in diameter. Extensive c alcifications of the iliac arteries laughlin are seen. Adenopathy: None. Pelvic viscera: Urinary bladder is adequately filled with urine. Prostate gland is not significantly enlarged. Skeletal structures: Transverse fracture deformity of L1 is likely acute, shows no evidence of retrop ulsion of fractured fragments or posterior element involvement, shows approximately 15 % loss of its height.. IMPRESSION: 1. Acute compression fracture deformity of L1. No retropulsion of the fractured fragments. 2. Cholelithiasis. No CT evidence of cholecystitis. 3. Bilateral renal cysts, largest is seen on the left as detailed above. Please correlate above-ment ioned findings with prior history of renal cyst. 4. Extensive colonic stool content. Right anterior abdominal wall hernia containing nondilated loops of small and large bowel. No evidence of strangulation. 5. Atherosclerosis. Intravascular stent within infrarenal aorta and bilateral common iliac arteries. 6. Limited exam due to motion artifact and lack of IV contrast. 7. The rest of findings as above. ACT 112: Negative or not required by law. The above report was generated using voice recognition software. It may contain grammatical, syntax o r spelling errors. Electronically signed by: Leia Rowan DO 01/30/2021 9:06 AM
[2021-01-30] MEDS: DOCUSATE SODIUM 100 MG CAP PO SCH ×2 (12:23→19:35)
[2021-01-30] MEDS: ACETAMINOPHEN 325 MG TAB PO PRN (12:23)
--- NOTE | 2021-01-30 13:52 | Electrocardiogram Report ---
Test Reason : Blood Pressure : / mmHG Vent. Rate : 088 BPM Atrial Rate : 088 BPM P-R Int : 202 ms QRS Dur : 104 ms QT Int : 372 ms P-R-T Axes : 070 076 095 degrees QTc Int : 450 ms Poor data quality, interpretation may be adversely affected Normal sinus rhythm Normal ECG No previous ECGs available Confirmed by Tesfaye Quintanilla ([id number]) on 01/30/2021 1:52:24 PM Referred By: REFERRED SELF Confirmed By:Venkata Quintanilla
--- NOTE | 2021-01-30 14:46 | Orthopedic Consultation ---
Date of Consultation January 30, 2021 Assessment & Plan (1) Compression fracture of lumbar vertebra: CAT scan of the lumbar spine does demonstrate evidence of superior endplate fracture of L1. This appears acute in nature. There is no evidence of canal compromise or neurologic deficit. I have ordered a TLSO brace to wear once he is able to begin transitions to a chair and undergo physical therapy occupational therapy ultimately be symptoms continue to be limiting in nature he may be a candidate for an L1 kyphoplasty. Clearly he has 2 resolve his medical issues before with consider this option. History of Present Illness Reason for Consultation: Compression fracture Attending Physician: Joanne Anna MD History of Present Illness This is a 81-year-old male who presents last evening emergency room with confusion status post fall. Imaging demonstrates evidence of an L1 compression fracture. Today he is somewhat disoriented. He is complaining of pain with activity. Fortunately his daughter is in the room. She he does live with her. He states that overall she is a highly functional independent gentleman walking regularly throughout the day and an avid reader. This is clearly not his normal state. Allergies Allergy/AdvReac Type Severity Reaction Status Date / Time ezetimibe [From Vytorin] AdvReac Intermediate Unknown Verified 01/29/21 17:23 simvastatin [From Vytorin] AdvReac Intermediate Unknown Verified 01/29/21 17:23 Home Medications Medication Instructions Recorded Confirmed Type albuterol sulfate 90 mcg/actuation 2 puff INHALATION Q4 PRN 01/29/21 01/29/21 History aerosol inhaler aspirin 81 mg tablet,delayed 81 mg PO QAM 01/29/21 01/29/21 History release (Aspirin Low Dose) atorvastatin 40 mg tablet 50 mg PO HS 01/29/21 01/29/21 History carvedilol 6.25 mg tablet 6.25 mg PO BID 01/29/21 01/29/21 History fluticasone propionate 110 2 puff INHALATION BID 01/29/21 01/29/21 History mcg/actuation HFA aerosol inhaler (Flovent HFA) losartan 25 mg tablet 25 mg PO QAM 01/29/21 01/29/21 History metformin 500 mg tablet 500 mg PO BID 01/29/21 01/29/21 History Patient History Social History Smoking Status: Former smoker Preferred Language: Azeri Communication Ability: Effective Beliefs That Will Affect Care: None marital status: / Current Living Situation: Family How many Children do You have: 1 Feels Safe at Home: Yes Assistive Devices: Denture - Upper and Walker Physical Exam Physical Exam: On physical exam he is cooperative but somnolent. He does have a reasonable plantar flexion dorsiflexion bilaterally. He is uncomfortable when moving about the bed secondary to back pain. Results & Data ([facility]) Vital Signs (Past 12 Hours) Vital Signs Temp Pulse Pulse Resp BP Pulse Ox 01/30/21 11:07 36.4 C L 80 16 118/72 98 01/30/21 07:18 36.5 C 80 20 170/106 H 98 01/30/21 07:00 88 01/30/21 04:00 162/86 H 01/30/21 03:01 36.3 C L 83 18 181/101 H 97
[2021-01-30] MEDS: ONDANSETRON INJ 2 MG/ML 2 ML VIAL IV PRN (15:46)
[2021-01-30] MEDS: MAGNESIUM OXIDE 400 MG TAB PO SCH (15:47)
[2021-01-30] MEDS ORDERED: tiZANidine HCL 4 MG TABLET PO SCH (21:00)
--- NOTE | 2021-01-30 21:33 | Hospitalist Progress Note ---
Date of Service January 30, 2021 Assessment & Plan (1) Compression fracture of lumbar vertebra: Plan: 81-year-old male with PMH of T2DM, HLD, aneurysm of common iliac artery/internal iliac artery/femoral artery, hypertension, CKD stage III, status post abdominal aortic aneurysm repair was brought from home because of fall. He is being managed for the following. #. Compression fracture of lumbar vertebra Admitting CAT scan of lumbar spine demonstrate superior endplate fracture of L1 BLE neurovascular status WNL Orthopedics on board: No evidence of canal compromise or neurologic deficit. Ordered TLSO brace to be worn once able to transition to chair and undergo PT/OT. If symptoms continue to be limiting in nature, he may be a candidate for an L1 kyphoplasty. PT OT consulted. We will continue to monitor him medically. #. Pneumonia Admitted CXR: Opacities at the right mid lower lung region suggestive of atelectasis versus infiltrative process WBC elevated at around 15,000. Patient started on Zosyn and doxycycline empirically, continue with the medication Continue to monitor. #. Diabetes: Metformin held, continue with sliding scale #. Resume home medication for hypertension, COPD, hyperlipidemia, CAD 01/30 echo: EF 35 to 40% with moderately reduced LV systolic function, moderate aortic valve sclerosis, mild MR, mild aortic root dilatation. #. Lovenox for DVT prophylaxis Admission and Anticipated Discharge Date Admission Date: January 29, 2021 Subjective Patient is lying in bed, on 2 L oxygen by nasal cannula, in moderate distress due to pain, pain exacerbated with movement. Other review of symptoms are negative. He was drowsy secondary to pain medications and was alert and oriented x2 [not to time]. Bladder scan was done and showed 460 mL of urine, patient had urge to void, RN to follow-up with repeat bladder scan. Physical Exam Physical Exam: GENERAL: Alert and oriented x2. Moderate distress due to pain, on 2 L nasal cannula oxygen HEENT: No pallor, no icterus. Pupils equal, round and reactive to light. Oral mucosa moist. NECK: No JVD, no neck masses. HEART: S1 and S2 heard. Regular rate and rhythm. No murmur, no gallop. RESPIRATORY SYSTEM: Normal AP diameter. No accessory muscle use. No wheezing, no crackles. Decreased breath sounds due to pain. ABDOMEN: Soft, bowel sounds present, nontender, no distention. CENTRAL NERVOUS SYSTEM: Alert and oriented x3. No facial droop. Speech is clear. Obeys simple commands. Moves extremities. EXTREMITIES: No edema, no erythema seen. Distal neurovascular status in BLE WNL. Results & Data Results & Data ([facility]) Vital Signs (Past 12 Hours) Vital Signs Temp Pulse Pulse Resp BP Pulse Ox 01/30/21 19:00 36.6 C 81 18 165/97 H 98 01/30/21 15:33 80 01/30/21 15:14 36.6 C 75 16 138/83 98 01/30/21 11:07 36.4 C L 80 16 118/72 98
[2021-01-31] MEDS: DOXYCYCLINE HYCLATE 100 MG in DEXTROSE 5% 100 ML IV SCH ×2 (00:25→11:55)
[2021-01-31] MEDS ORDERED: KETOROLAC TROMETHAMINE 15 MG/ML VIAL IV STA (01:23)
[2021-01-31] MEDS ORDERED: HYDROmorphone INJ 1 MG/ML SYRINGE IV PRN (01:24)
[2021-01-31] MEDS: oxyCODONE HCL IR 5 MG TAB (IMMEDIATE RELEASE) PO PRN ×2 (01:34→15:53)
[2021-01-31] MEDS: LIDOCAINE 5% 1 PATCH TD SCH (02:09)
[2021-01-31] MEDS: PIPERACILLIN/TAZOBACTAM 3.375 GM in DEXTROSE 5% 100 ML IV SCH ×3 (02:10→17:17)
[2021-01-31 08:01] LABS: Hematocrit (blood only) 38.2 % (42-52); Hemoglobin 13.2 g/dL (14.0-18.0); Mean Corpuscular Hemoglobin 28.9 pg (25-34); Mean Corpuscular Hgb Conc 34.6 g/dL (32-36); Mean Corpuscular Volume 83.8 fL (80-100); Mean Platelet Volume 10.1 fL (7.4-10.4); Platelet Count 102 K/uL (130-400); RDW Coefficient of Variation 14.2 % (11.5-14.5); RDW Standard Deviation 43.1 fL (36.4-46.3); Red Blood Count 4.56 M/uL (4.7-6.1); White Blood Count 10.05 K/uL (4.8-10.8)
[2021-01-31 08:40] LABS: BUN Creatinine Ratio 14.4 (10-20); Calcium 8.7 mg/dl (8.5-10.1); Creatinine Clr Calc Pharmacy 46.3 ml/min; Est GFR (African American) 58.4 ml/min; Est GFR (Non-African American) 50.3 ml/min; Potassium 4.2 mmol/L (3.5-5.1)
[2021-01-31] MEDS: INSULIN ASPART 100 UNITS/ML 3 ML PEN SC SCH ×4 (08:45→20:37)
[2021-01-31] MEDS: ASPIRIN 81 MG ECTAB PO SCH (08:49)
[2021-01-31] MEDS: MAGNESIUM OXIDE 400 MG TAB PO SCH (08:49)
[2021-01-31] MEDS: LOSARTAN POTASSIUM 25 MG TAB PO SCH (08:49)
[2021-01-31] MEDS: carvediloL 6.25 MG TAB PO SCH ×2 (08:49→20:28)
[2021-01-31] MEDS: DOCUSATE SODIUM 100 MG CAP PO SCH ×2 (08:49→20:27)
[2021-01-31] MEDS: HEPARIN SOD 5,000 UNIT/0.5 ML VIAL SQ SCH ×2 (08:50→20:42)
[2021-01-31] MEDS: FLUTICASONE FUROATE 100MCG 14 PUFFS/INHALER INH SCH (08:50)
--- NOTE | 2021-01-31 09:17 | Pain Management Consultation ---
Date of Consultation January 31, 2021 Assessment & Plan (1) AMS (altered mental status): Altered mental status type: unspecified Qualified Code(s): R41.82 - Altered mental status, unspecified (2) Compression fracture of lumbar vertebra: (3) Sacroiliac joint pain: (4) Pneumonia: Laterality: right Lung location: lower lobe of lung Pneumonia type: due to unspecified organism Qualified Code(s): J18.9 - Pneumonia, unspecified organism 1. Physical exam findings suggest left SI joint region pain as opposed to midline pain over the L1 compression fracture site. Would recommend application of the Lidoderm patch over the left SI joint at time of next change 2. Will discontinue hydromorphone 1 mg and trial hydromorphone 0.5 mg to assess tolerability. Increase level of altered mental status/confusion appears to be associated with recent dosing of hydromorphone 1 mg. Assess response and adjust accordingly. 3. Patient may also utilize oral OxyIR for as needed breakthrough pain. Would not dose OxyIR and hydromorphone within 3 hours of each other in an attempt to assess tolerability/effectiveness. 4. Patient is a poor candidate for any interventional treatment due to comorbid medical conditions 5. Should the patient remain intolerant to OxyIR or hydromorphone, would consider a trial of Nucynta Thank you for allowing us to participate in the care of Mr. Kitchen History of Present Illness Reason for Consultation: Intractable back pain Requesting Physician: Joanne Anna MD Attending Physician: Joanne Anna MD History of Present Illness Mr. Kitchen is an 81-year-old white male who was admitted due to intractable back pain status post a fall and altered mental status. Mr. Kitchen who lives in his own home with his daughter and son-in-law had a fall in his bedroom which was not witnessed. The patient was witness standing by the family after they had heard a "thud" in the middle the night. Patient had difficulty with more confusion than normal the following morning and was complaining of back pain which led to emergency evaluation and subsequent admission. Imaging completed upon admission indicated acute compression fracture deformity of L1 without evidence of other acute findings. The patient was also found to have pneumonia with opacities in the right mid lower lung region with elevated WBC count has been placed on empiric Zosyn and doxycycline. Nursing staff is reporting some increased difficulties with confusion this morning. The patient did receive hydromorphone 1 mg at 0450. He does continue to complain of pain predominantly in the left lumbosacral region and a sensation of tightness across his back. Patient is repeating that he feels that something is "balled up" on his back and keeps rolling towards his left side and moving the bed sheet. He denies pain or paresthesia in the lower extremities. Patient offers no further constitutional complaints. Plan of care discussed with Dr. Junay Carrillo. Pain Assessment Full Body Front + Back: 1. Left lumbosacral pain Allergies Allergy/AdvReac Type Severity Reaction Status Date / Time ezetimibe [From Vytorin] AdvReac Intermediate Unknown Verified 01/29/21 17:23 simvastatin [From Vytorin] AdvReac Intermediate Unknown Verified 01/29/21 17:23 Home Medications Medication Instructions Recorded Confirmed Type albuterol sulfate 90 mcg/actuation 2 puff INHALATION Q4 PRN 01/29/21 01/29/21 History aerosol inhaler aspirin 81 mg tablet,delayed 81 mg PO QAM 01/29/21 01/29/21 History release (Aspirin Low Dose) atorvastatin 40 mg tablet 50 mg PO HS 01/29/21 01/29/21 History carvedilol 6.25 mg tablet 6.25 mg PO BID 01/29/21 01/29/21 History fluticasone propionate 110 2 puff INHALATION BID 01/29/21 01/29/21 History mcg/actuation HFA aerosol inhaler (Flovent HFA) losartan 25 mg tablet 25 mg PO QAM 01/29/21 01/29/21 History metformin 500 mg tablet 500 mg PO BID 01/29/21 01/29/21 History Patient History Medical History (Updated 01/31/21 @ 09:44 by Hugh Goddard PA-C) Sacroiliac joint pain Social History Smoking Status: Former smoker Preferred Language: [place] Verdean Communication Ability: Effective Beliefs That Will Affect Care: None marital status: / Current Living Situation: Family How many Children do You have: 1 Feels Safe at Home: Yes Assistive Devices: Denture - Upper and Walker Physical Exam Physical Exam: General: Patient restless. Patient able to answer direct questions. Patient oriented to person. Head: Normocephalic and atraumatic. Abdomen: Soft and nondistended. No organomegaly. Bowel sounds active. Back/spine: Patient able to logroll towards his right side for visual inspection. Lidoderm patch in place at the thoracolumbar junction over the midline. Patient is nontender over the midline to palpation or percussion. Patient tender to direct outpatient of the left SI joint to provocative testing and nontender corresponding the right. Minimally tender through the gluteal musculature. Nontender in the paravertebral musculature. No focal facet joint extraocular testing. Lower extremities: Sensation appear to be intact distally. Strength testing was 5/5 with dorsi and plantar flexion. Straight leg raising was negative bilaterally. Left hip is nontender with internal/external rotation. Nontender over the greater trochanter. Neurologic: Cranial nerves grossly intact. Ambulatory function not witnessed. Results (Pain Clinic) Diagnostic Review CT Findings: [facility], [id number] CT Scan Report Patient: IGLESIA KITCHEN AAdmit Date: 01/29/21MR#: [id number]: [address] DRAcct ID:[id number]: [facility]: 1940[facility] Zip[facility] [place], [place] [address]Bwm: 81Location: 2WSex: MRoom/Bed: [id number] Phy: Joanne Anna MDDiagnosis: FALLPri Phy: NOY,NOService Date: 01/29/21Fa Phy:Interpreting Phy: Leia Rowan DOAdmit Phy: Nilesh Nagel MD Ordering Phy: Nilesh Nagel MD cc: ~ CT SCAN OF THE ABDOMEN AND PELVIS WITHOUT CONTRAST CLINICAL HISTORY: abdominal pain COMPARISON STUDY: No previous studies for comparison. TECHNIQUE: CT scan of the abdomen and pelvis was performed from the lung bases to the proximal femurs. Images are reviewed in the axial, sagittal, and coronal planes. IV contrast was not administered for this examination. A dose lowering technique was utilized adhering to the principles of ALARA. CT DOSE: 647.19 mGy.cm FINDINGS: Lower chest: Minimal atelectasis is seen at dependent portions of bilateral lower lobes. Evaluation of lung parenchyma is limited due to motion artifact. Mild to moderate hiatal hernia. Liver: The unenhanced liver is normal in size, contour, and attenuation. There is no intrahepatic biliary ductal dilatation. Gallbladder: Is fluid-filled with hyperattenuating collection within its dependent portion which could represent gallstones or/and sludge. Spleen: Normal in size and attenuation. Pancreas: Unremarkable. Adrenal glands: Unremarkable. Kidneys: The unenhanced kidneys are normal in size without hydronephrosis. No renal calculi are identified. Bilateral renal cysts are seen, evaluation is limited due to lack of IV contrast. Largest cyst is seen on the left and measure 8.7 x 8.1 cm in size. Bowel: Loops of small bowel are nondilated. Loops of large bowel are within upper limits of normal with extensive stool content. Small hernia is seen within right abdominal wall contain loops of small and large bowel. Evaluation is limited due to lack of contrast and motion artifact. Appendix is not well seen. Peritoneum: There is no intraperitoneal free air or abdominal ascites. Vasculature: Tortuous abdominal aorta with intravascular metallic graft within its distal aspect extending to the right and left iliac arteries. Calcifications of aortic wall. Distal aspect of the right external iliac artery is dilated measuring 2.1 cm in diameter. Extensive calcifications of the iliac arteries laughlin are seen. Adenopathy: None. Pelvic viscera: Urinary bladder is adequately filled with urine. Prostate gland is not significantly enlarged. Skeletal structures: Transverse fracture deformity of L1 is likely acute, shows no evidence of retropulsion of fractured fragments or posterior element involvement, shows approximately 15 % loss of its height.. IMPRESSION: 1. Acute compression fracture deformity of L1. No retropulsion of the fractured fragments. 2. Cholelithiasis. No CT evidence of cholecystitis. 3. Bilateral renal cysts, largest is seen on the left as detailed above. Please correlate above-mentioned findings with prior history of renal cyst. 4. Extensive colonic stool content. Right anterior abdominal wall hernia con taining nondilated loops of small and large bowel. No evidence of strangulation. 5. Atherosclerosis. Intravascular stent within infrarenal aorta and bilateral common iliac arteries. 6. Limited exam due to motion artifact and lack of IV contrast. 7. The rest of findings as above. ACT 112: Negative or not required by law. The above report was generated using voice recognition software. It may contain grammatical, syntax or spelling errors. Electronically signed by: Leia Rowan DO 01/30/2021 9:06 AM Dictated: 01/30/2139Transcribed: 01/30/2149 [facility], [phone] CT Scan Report Patient: IGLESIA KITCHEN AAdmit Date: 01/29/21MR#: [id number]: [address] DRAcct ID:[id number]: Date: [address] Zip: [place] [address]Aez: 81Location: EDSex: MRoom/Bed:Att Phy:Diagnosis: FALLPri Phy: PCP,NOService Date: 01/29/21Fam Phy:Interpreting Phy: Leia Rowan DOAdmit Phy: Ordering Phy: Yelena Medellin DO cc: ~ CT thoracic spine wo con CT DOSE: 2779.34 mGy.cm CLINICAL HISTORY: trauma TECHNIQUE: A dose lowering technique was utilized adhering to the principles of ALARA. COMPARISON STUDY: None. FINDINGS: Mild thoracic dextroscoliosis is seen. Osseous structures are diffusely dem ineralized. No acute fracture or traumatic malalignment is seen. No pneumothorax is demonstrated. Mild centrilobular upper lobe predominant emphysema is seen. Normal thoracic kyphosis is preserved. Vertebral body heights are maintained. Few intervertebral disc spaces are slightly narrowed and show anterior osteophytes. Central canal is patent. No significant neural foraminal stenosis is seen. IMPRESSION: No evidence of acute fracture or traumatic malalignment. Osteopenia. Multilevel degenerative changes as detailed above. ACT 112: Negative or not required by law. The above report was generated using voice recognition software. It may contain grammatical, syntax or spelling errors. Electronically signed by: Leia Rowan DO 01/29/2021 7:44 PM Dictated: 01/29/211938Transcribed: 01/29/211938 [facility], [phone] CT Scan Report Patient: IGLESIA KITCHEN AAdmit Date: 01/29/21MR#: [id number]: [address] DRAcct ID:[id number]: Date: 1940City Zip: [place] [address]Kah: 81Location: EDSex: MRoom/Bed:Att Phy:Diagnosis: FALLPri Phy: PCP,NOService Date: 01/29/21Fam Phy:Interpreting Phy: Leia Rowan DOAdmit Phy: Ordering Phy: Yelena Medellin DO cc: ~ CT lumbar spine wo con CT DOSE: CLINICAL HISTORY: trauma TECHNIQUE: Helical images were acquired in transverse plane. Reformatted sagittal and coronal images were reviewed. A dose lowering technique was utilized adhering to the principles of ALARA. CONTRAST: No contrast was administered COMPARISON STUDY: None. FINDINGS: Transverse fracture deformity of the L1 is seen with mild decrease in vertebral body height. Fracture line is extending from anterior to posterior aspect of the body of the L1 without evidence of involvement of posterior elements. Transverse and spinous processes are preserved. No narrowing of the central canal is seen at this level. No definite other fractures are seen seen however evaluation is limited due to diffuse osteopenia. Minimal anterolisthesis of L4 on L5 is seen. Multilevel intervertebral disc space narrowing with subchondral sclerosis and cyst as well as osteophytes are seen. Minimal central canal stenosis is seen at T12-L1, L2-L3, L3-L4 levels. Prominent bulge of the disc and severe stenosis of the central canal is seen at L4-L5 level and also associated with prominent degenerative/hypertrophic changes of facet joints. Mild neural foraminal stenosis is seen bilaterally. Metallic vascular stent is seen within aortic lumen. Evaluation is limited on this nondedicated exam. IMPRESSION: Transverse fracture of L1 body with mild decrease of its height. Posterior eleme nts are not involved. No central canal stenosis is seen at this level. Report will be sent to emergency Department. Multilevel degenerative changes as detailed above. Osteopenia limits evaluation. Intra-aortic metallic stent graft. ACT 112: Negative or not required by law. The above report was generated using voice recognition software. It may contain grammatical, syntax or spelling errors. Electronically signed by: Leia Rowan DO 01/29/2021 7:59 PM Dictated: 01/29/211944Transcribed: 01/29/211944 Radiology Findings: [facility], [phone] XRay Report Patient: IGLESIA KITCHEN Date: 01/29/21MR#: [id number]: [address] DRAcct ID:[id number]: Date: [address] Zip: [place] [address]Zfz: 81Location: EDSex: MRoom/Bed:Att Phy:Diagnosis: FALLPri Phy: PCP,NOService Date: 01/29/21Fam Phy:Interpreting Phy: Leia Rowan DOAdmit Phy: Ordering Phy: Yelena Medellin DO cc: ~ XR pelvis 1-2V routine CLINICAL HISTORY: trauma COMPARISON: None. DISCUSSION: No definite acute fracture or dislocation seen, however evaluation is significantly limited due to severe diffuse osteopenia, soft tissue edema and multiple gas-filled loops of bowel within upper limits of normal for size. Vascular stent is seen projecting to the anatomical region of aorta. IMPRESSION: As above. ACT 112: Negative or not required by law. The above report was generated using voice recognition software. It may contain grammatical, syntax or spelling errors. Electronically signed by: Leia Rowan DO 01/29/2021 6:55 PM Dictated: 01/29/211852Transcribed: 01/29/211852
[2021-01-31] MEDS: POLYETHYLENE (MIRALAX) 17 GM PACK PO PRN (11:19)
[2021-01-31] MEDS: HYDROmorphone INJ 0.5 MG/0.5 ML SYR IV PRN ×2 (12:32→18:35)
--- NOTE | 2021-01-31 18:48 | Hospitalist Progress Note ---
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 He is being managed for the following. #. Compression fracture of lumbar vertebra Admitting CAT scan of lumbar spine demonstrate superior endplate fracture of L1 BLE neurovascular status [facility] on board: No evidence of canal compromise or neurologic deficit. Ordered TLSO brace to be worn once able to transition to chair and undergo PT/OT. If symptoms continue to be limiting in nature, he may be a candidate for an L1 kyphoplasty. PT OT onboard. We will continue to monitor him medically. #. Pneumonia Admitted CXR: Opacities at the right mid lower lung region suggestive of atelectasis versus infiltrative process WBC elevated at around 15,000. Down to normal. Patient improving clinically and lab barrow, will transition him to p.o. antibiotic for 4 more days. Continue to monitor. #. Diabetes: Metformin held, continue with sliding scale #. Resume home medication for hypertension, COPD, hyperlipidemia, CAD 01/30 echo: EF 35 to 40% with moderately reduced LV systolic function, moderate aortic valve sclerosis, mild MR, mild aortic root dilatation. Blood pressure elevated despite home medication likely secondary to pain. Will put in as needed medications. #. Lovenox for DVT prophylaxis Admission and Anticipated Discharge Date Admission Date: January 29, 2021 Subjective Patient is lying in bed, on 2 L oxygen by nasal cannula, NAD, pain exacerbated with movement but under control when not moving. Other review of symptoms are negative. He was drowsy secondary to pain medications and was alert and oriented x2 [not to time]. Patient is voiding urine normally. Patient has not moved his bowel. Will add milk of magnesia. Physical Exam Physical Exam: GENERAL: Alert and oriented x2. Moderate distress due to pain, on 2 L nasal cannula oxygen HEENT: No pallor, no icterus. Pupils equal, round and reactive to light. Oral mucosa moist. NECK: No JVD, no neck masses. HEART: S1 and S2 heard. Regular rate and rhythm. No murmur, no gallop. RESPIRATORY SYSTEM: Normal AP diameter. No accessory muscle use. No wheezing, no crackles. Decreased breath sounds due to pain. ABDOMEN: Soft, bowel sounds present, nontender, no distention. CENTRAL NERVOUS SYSTEM: No facial droop. Speech is clear. Obeys simple commands. Moves extremities. EXTREMITIES: No edema, no erythema seen. Distal neurovascular status in BLE WNL. Results & Data Results & Data ([facility]) Vital Signs (Past 12 Hours) Vital Signs Temp Pulse Pulse Resp BP BP Pulse Ox 01/31/21 16:47 36.4 C L 85 20 175/104 H 183/105 H 96 01/31/21 16:00 84 01/31/21 11:34 36.5 C 81 20 144/88 H 97 01/31/21 08:11 36.4 C L 77 20 151/89 H 97 01/31/21 07:00 77
[2021-01-31] MEDS ORDERED: LABETALOL HCL IV 5 MG/ML 20ML IV PRN (18:50)
[2021-01-31] MEDS: DOXYCYCLINE HYCLATE 100 MG CAP PO SCH (20:27)
[2021-01-31] MEDS: ACETAMINOPHEN 325 MG TAB PO PRN (20:28)
[2021-01-31] MEDS: AMOXICILLIN/CLAVULANATE 875 MG TAB PO SCH (20:28)
[2021-02-01] MEDS: oxyCODONE HCL IR 5 MG TAB (IMMEDIATE RELEASE) PO PRN ×4 (00:11→20:21)
[2021-02-01] MEDS: HYDROmorphone INJ 0.5 MG/0.5 ML SYR IV PRN (04:36)
[2021-02-01] MEDS: LOSARTAN POTASSIUM 25 MG TAB PO SCH (08:05)
[2021-02-01] MEDS: DOCUSATE SODIUM 100 MG CAP PO SCH (08:05)
[2021-02-01] MEDS: ASPIRIN 81 MG ECTAB PO SCH (08:05)
[2021-02-01] MEDS: MAGNESIUM OXIDE 400 MG TAB PO SCH (08:05)
[2021-02-01] MEDS: carvediloL 6.25 MG TAB PO SCH ×2 (08:06→20:17)
[2021-02-01] MEDS: FLUTICASONE FUROATE 100MCG 14 PUFFS/INHALER INH SCH (08:06)
[2021-02-01] MEDS: AMOXICILLIN/CLAVULANATE 875 MG TAB PO SCH ×2 (08:06→16:38)
[2021-02-01] MEDS: DOXYCYCLINE HYCLATE 100 MG CAP PO SCH ×2 (08:06→20:17)
[2021-02-01] MEDS: MAGNESIUM HYDROXIDE SUSP 30 ML UDC PO PRN (08:06)
[2021-02-01] MEDS: POLYETHYLENE (MIRALAX) 17 GM PACK PO PRN (08:07)
[2021-02-01] MEDS: HEPARIN SOD 5,000 UNIT/0.5 ML VIAL SQ SCH ×2 (08:08→20:50)
[2021-02-01] MEDS: LIDOCAINE 5% 1 PATCH TD SCH (08:08)
[2021-02-01] MEDS: INSULIN ASPART 100 UNITS/ML 3 ML PEN SC SCH ×4 (08:16→20:46)
[2021-02-01 09:00] LABS: Hematocrit (blood only) 40.9 % (42-52); Hemoglobin 14.3 g/dL (14.0-18.0); Mean Corpuscular Hemoglobin 29.4 pg (25-34); Mean Corpuscular Volume 84.2 fL (80-100); Mean Platelet Volume 10.5 fL (7.4-10.4); Platelet Count 128 K/uL (130-400); RDW Coefficient of Variation 14.1 % (11.5-14.5); RDW Standard Deviation 43.7 fL (36.4-46.3); Red Blood Count 4.86 M/uL (4.7-6.1); White Blood Count 10.81 K/uL (4.8-10.8)
--- NOTE | 2021-02-01 09:00 | Pain Management Progress Note ---
Date of Service February 01, 2021 Assessment & Plan (1) Sacroiliac joint pain: (2) Fracture of lumbar spine: Encounter type: initial encounter Fracture morphology: other fracture Fracture type: closed Lumbar vertebra fracture level: L1 Qualified Code(s): S32.018A - Other fracture of first lumbar vertebra, initial encounter for closed fracture (3) AMS (altered mental status): Altered mental status type: unspecified Qualified Code(s): R41.82 - Altered mental status, unspecified (4) Pneumonia: Laterality: right Lung location: lower lobe of lung Pneumonia type: due to unspecified organism Qualified Code(s): J18.9 - Pneumonia, unspecified organism Plan: He is not as confused as he was in the evening. His pain appears improved since yesterday morning. I will discontinue the IV Dilaudid to see if the pain can be controlled with oral medications only and possibly help improve the confusion. Continue the PO Oxycodone 5-10mg QID for pain relief. Will sign off on the patient. Please call with any questions or if patient needs reevaluated. Admission and Anticipated Discharge Date Admission Date: January 29, 2021 Subjective Mr. Lorenz is an 81 year old male with an acute L1 compression fracture after a fall. Over the evening he was moving around in the bed. He was confused - oriented to self. He is reporting a fuzziness/dizziness shortly after receiving the Oxycodone and Hydromorphone. His current complaint is abdominal pain as he does feel the need to have a bowel movement. Physical Exam Physical Exam: GENERAL: This is an 81 year old male. Not grimacing in pain. Sitting in hospital bed not appearing in acute pain. HEAD/FACE: Normocephalic and atraumatic. RESPIRATORY: Patient with unlabored breathing. No signs of respiratory distress. CHEST/AXILLA: Chest movement symmetrical. No deformities noted. BACK: Able to move slightly from side to side with no pain. SKIN: Tome, warm and dry. No rash noted. MS/EXTREMITY: No swelling, no deformities. Moving extremities appropriately. NEURO: Alert. He is oriented to self. Speech is fluent. Cranial Nerves are grossly intact. PSYCH: Alert, pleasant, affect is calm
[2021-02-01] MEDS ORDERED: METHYLNALTREXONE BROMIDE 12 MG/0.6 ML VIAL SQ ONE (09:54)
[2021-02-01] MEDS: traMADol HCL 50 MG TABLET PO PRN (10:49)
[2021-02-01] MEDS: ACETAMINOPHEN 325 MG TAB PO PRN (14:26)
[2021-02-01] MEDS: ONDANSETRON INJ 2 MG/ML 2 ML VIAL IV PRN (14:33)
--- NOTE | 2021-02-01 18:41 | Hospitalist Progress Note ---
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 He is being managed for the following. #. Compression fracture of lumbar vertebra #. Acute encephalopathy Patient performs independent ADLs per his daughter He is AO x3 at baseline Likely secondary to pneumonia and acute pain now being contributed by pain medications. Admitting CAT scan of lumbar spine demonstrate superior endplate fracture of L1 BLE neurovascular status [facility] on board: No evidence of canal compromise or neurologic deficit. Ordered TLSO brace to be worn once able to transition to chair and undergo PT/OT. If symptoms continue to be limiting in nature, he may be a candidate for an L1 kyphoplasty. PT OT onboard. We will continue to monitor him medically. Continue with as needed pain medications. #. Pneumonia Admitted CXR: Opacities at the right mid lower lung region suggestive of atelectasis versus infiltrative process WBC elevated at around 15,000. Down to normal. Patient improving clinically and lab barrow, will transition him to p.o. antibiotic for 4 more days - stop Date Feb 04. Continue to monitor. #. Constipation Patient not able to move bowel since admission Patient complains of ongoing belly pain and at times feels like he needs to move bowel Likely secondary to pain which is exacerbated by pain medication Continue with Colace, MiraLAX, daily Relistor at reduced dose [due to his creatinine clearance] until he moves his bowel CT abdomen pelvis ordered, if no concern for obstruction, will add enema. Await formal reading on CTAP. #. Diabetes: Metformin held, continue with sliding scale #. Resume home medication for hypertension, COPD, hyperlipidemia, CAD 01/30 echo: EF 35 to 40% with moderately reduced LV systolic function, moderate aortic valve sclerosis, mild MR, mild aortic root dilatation. Blood pressure elevated despite home medication likely secondary to pain. Will put in as needed iv medications. Also added alfonzo Hctz 02/01, reassess for discontinuation after pain management. #. Hep for DVT prophylaxis PT recommending SNF upon discharge. Patient's daughter called and updated about her father. She is agreeable and understanding to the plan of care. Admission and Anticipated Discharge Date Admission Date: January 29, 2021 Subjective Patient is lying in bed, on 2 L oxygen by nasal cannula, NAD, pain exacerbated with movement but under control when not moving. Other review of symptoms are negative. He was drowsy secondary to pain medications and was alert and oriented x2 [not to time]. Patient is voiding urine normally. Patient has not moved his bowel. Will get CT AP. Physical Exam Physical Exam: GENERAL: Alert and oriented x2. Moderate distress due to pain, on 2 L nasal cannula oxygen HEENT: No pallor, no icterus. Pupils equal, round and reactive to light. Oral mucosa moist. NECK: No JVD, no neck masses. HEART: S1 and S2 heard. Regular rate and rhythm. No murmur, no gallop. RESPIRATORY SYSTEM: Normal AP diameter. No accessory muscle use. No wheezing, no crackles. Decreased breath sounds due to pain. ABDOMEN: Soft, bowel sounds present, nontender, no distention. CENTRAL NERVOUS SYSTEM: No facial droop. Speech is clear. Obeys simple commands. Moves extremities. EXTREMITIES: No edema, no erythema seen. Distal neurovascular status in BLE WNL. Results & Data Results & Data ([facility]) Vital Signs (Past 12 Hours) Vital Signs Temp Pulse Pulse Pulse Resp BP BP 02/01/21 16:24 36.7 C 86 18 164/101 H 02/01/21 15:00 96 H 02/01/21 12:31 80 134/81 02/01/21 11:57 36.5 C 89 16 169/112 H 02/01/21 08:27 36.5 C 94 H 16 170/108 H 177/121 H 02/01/21 07:00 89 Pulse Ox 02/01/21 16:24 97 02/01/21 15:00 02/01/21 12:31 02/01/21 11:57 97 02/01/21 08:27 98 02/01/21 07:00
--- NOTE | 2021-02-01 19:32 | CT Scan Report ---
HEAD CT NONCONTRAST CT DOSE: 537.48 mGy.cm HISTORY: ongoing dizziness, pt confused on/off TECHNIQUE: Multiaxial CT images of the head were performed without the use of intravenous contrast. A utomated exposure control was utilized for this study. A dose lowering technique was utilized adheri ng to the principles of ALARA. Comparison: None. Findings: The paranasal sinuses and mastoid air cells are clear. The calvarium and skull base are int act. There is no mass, hematoma, midline shift, acute infarct. White matter hypodensity is nonspecifi c but suggestive of microvascular ischemic change. The ventricles and sulci demonstrate mild age-rela namrata involutional changes. 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 A 1.7 cm hypodensity adjacent to the left cerebellar hemisphere seen on image 10. This was not present on the recent head CT and therefore favors volume averaging rather than a cerebellar abnormality. Impression: No acute intracranial abnormality. Atrophy and microvascular ischemic changes. ACT 112: Negative or not required by law. Electronically signed by: Veto Morales M.D. 02/01/2021 7:30 PM
--- NOTE | 2021-02-01 19:56 | CT Scan Report ---
ABDOMEN AND PELVIS CT WITH ORAL CONTRAST CT DOSE: 715.41 mGy.cm HISTORY: Generalized abdominal pain. Assess for small bowel obstruction. TECHNIQUE: Multiaxial CT images of the abdomen and pelvis were performed following the use of oral co ntrast. A dose lowering technique was utilized adhering to the principles of ALARA. COMPARISON STUDY: Abdomen and pelvis CT 01/29/2021. FINDINGS: Patchy and linear densities at the lung bases posteriorly favor subsegmental atelectasis or scarring. No pneumoperitoneum. No pneumatosis. Redemonstration of the acute mild to moderate superio r endplate compression fracture at L1 demonstrating up to 2 3 mm of retropulsion the posterior superi or corner. No significant central canal narrowing. There is mild paravertebral edema at this location . The heart remains mildly enlarged. Coronary artery calcifications are noted. There is a small hiatu s hernia. Multiple tiny gallstones are noted. No gallbladder wall thickening. The liver, spleen, adre nal glands, and pancreas are unremarkable. No retroperitoneal lymphadenopathy. Redemonstration of the aortobiiliac stent graft. 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 No bladder wall thickening. The prosta te gland is normal in size. No pelvic free fluid. No retroperitoneal lymphadenopathy. Bilateral renal hypodense lesions are again noted. These are incompletely characters on this noncontrast study but f avor cysts. There is mild bilateral cortical renal scarring. No renal or ureteral stones. No hydronep hrosis. Small fat-containing upper abdominal midline ventral hernias. There is also a moderate size m idline ventral hernia containing multiple loops of small bowel. There is contrast within the nondilat ed loops of bowel both within and proximal to this hernia. However, the small bowel loops distal to t he hernia site are decompressed and do not contain contrast. Therefore, this could represent a develo ping small bowel obstruction with the transition point located at the hernia site. Consider a follow- up KUB to evaluate for passage of the oral contrast and to exclude the possibility of developing smal l bowel obstruction. Mildly distended gas and stool-filled colon which has progressed. IMPRESSION: 1. There is again noted a moderate size midline ventral hernia containing multiple loops of small bow el. There is contrast within the nondilated loops of bowel both within and proximal to this hernia. H owever, the small bowel loops distal to the hernia site are decompressed and do not contain contrast. Therefore, this could represent a developing small bowel obstruction with the transition point locat ed at the hernia site. Consider a follow-up KUB to evaluate for passage of the oral contrast and to e xclude the possibility of developing small bowel obstruction. 2. Mildly distended gas and stool-filled colon which has progressed. 3. Redemonstration of the superior endplate compression fracture at L1. 4. 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 5. Cholelithiasis. 6. Additional findings as described above. ACT 112: Negative or not required by law. Electronically signed by: Veto Morales M.D. 02/01/2021 7:55 PM
[2021-02-01] MEDS ORDERED: bisacodyL 10 MG SUPP PR STA (20:15)
[2021-02-01] MEDS: hydroCHLOROthiazide 25 MG TAB PO SCH (20:18)
[2021-02-01] MEDS ORDERED: LACTULOSE SYRUP 30 GM/45 ML UDP PO STA (20:20)
[2021-02-01] MEDS: DOCUSATE SODIUM/SENNA 50/8.6MG TAB PO SCH (20:49)
[2021-02-01] MEDS ORDERED: bisacodyL 10 MG SUPP PR ONE (22:25)
[2021-02-02] MEDS: traMADol HCL 50 MG TABLET PO PRN ×2 (01:03→19:13)
[2021-02-02] MEDS: DOCUSATE SODIUM/SENNA 50/8.6MG TAB PO SCH ×2 (07:50→20:57)
[2021-02-02] MEDS: carvediloL 6.25 MG TAB PO SCH ×2 (07:50→20:58)
[2021-02-02] MEDS: ASPIRIN 81 MG ECTAB PO SCH (07:50)
[2021-02-02] MEDS: AMOXICILLIN/CLAVULANATE 875 MG TAB PO SCH ×2 (07:50→17:00)
[2021-02-02] MEDS: DOXYCYCLINE HYCLATE 100 MG CAP PO SCH ×2 (07:51→20:58)
[2021-02-02] MEDS: hydroCHLOROthiazide 25 MG TAB PO SCH (07:51)
[2021-02-02] MEDS: FLUTICASONE FUROATE 100MCG 14 PUFFS/INHALER INH SCH (07:51)
[2021-02-02] MEDS: HEPARIN SOD 5,000 UNIT/0.5 ML VIAL SQ SCH ×2 (07:51→20:58)
[2021-02-02] MEDS: LIDOCAINE 5% 1 PATCH TD SCH (07:52)
[2021-02-02] MEDS: LOSARTAN POTASSIUM 25 MG TAB PO SCH (07:52)
[2021-02-02] MEDS: METHYLNALTREXONE BROMIDE 12 MG/0.6 ML VIAL SQ SCH (07:53)
[2021-02-02] MEDS: MAGNESIUM OXIDE 400 MG TAB PO SCH (07:53)
[2021-02-02 07:54] LABS: Hemoglobin 13.8 g/dL (14.0-18.0); Mean Corpuscular Hemoglobin 28.9 pg (25-34); Mean Corpuscular Hgb Conc 34.5 g/dL (32-36); Mean Corpuscular Volume 83.9 fL (80-100); Mean Platelet Volume 9.9 fL (7.4-10.4); Platelet Count 123 K/uL (130-400); RDW Coefficient of Variation 14.1 % (11.5-14.5); RDW Standard Deviation 43.2 fL (36.4-46.3); Red Blood Count 4.77 M/uL (4.7-6.1); White Blood Count 10.94 K/uL (4.8-10.8)
[2021-02-02] MEDS: oxyCODONE HCL IR 5 MG TAB (IMMEDIATE RELEASE) PO PRN ×2 (08:06→12:21)
[2021-02-02] MEDS: INSULIN ASPART 100 UNITS/ML 3 ML PEN SC SCH ×4 (08:09→22:18)
[2021-02-02 08:21] LABS: BUN Creatinine Ratio 19.6 (10-20); Calcium 9.2 mg/dl (8.5-10.1); Creatinine Clr Calc Pharmacy 52.7 ml/min; Est GFR (African American) 68.3 ml/min; Est GFR (Non-African American) 58.9 ml/min; Magnesium 2.4 mg/dl (1.8-2.4); Phosphorus 3.5 mg/dl (2.5-4.9); Potassium 4.3 mmol/L (3.5-5.1)
--- NOTE | 2021-02-02 09:51 | XRay Report ---
KUB HISTORY: Possible small bowel obstruction. Follow-up. COMPARISON: None. FINDINGS: There is a large amount of stool seen throughout the colon. An aortobiiliac stent graft is again noted. No dilated loops of small bowel to suggest an obstruction. No renal calculi. No uretera l calculi. No pneumoperitoneum or pneumatosis. IMPRESSION: 1. No evidence for small bowel obstruction. 2. Large amount of stool seen throughout the colon. ACT 112: Negative or not required by law. Electronically signed by: Veto Morales M.D. 02/02/2021 9:50 AM
--- NOTE | 2021-02-02 11:48 | Surgery Consultation ---
Date of Consultation February 02, 2021 Assessment & Plan (1) Abdominal pain: 81 y/o male with some abdominal pain, no sbo on imaging, having bm's and passing flatus. Not hungry but has full tray next to bed. No sbo no surgical intervention indicated may follow up as outpatient for hernia surgery will sign off. (2) Ventral hernia: History of Present Illness Attending Physician: Joanne Anna MD History of Present Illness 81 year old male admitted s/p fall with pna and compression fracture, surgery consulted for sbo. History of AAA repair, midline hernia. Was constipated, CT yesterday showed hernia containing nonobstructed bowel but possible developing sbo. KUB this morning with no obstruction but constipation. Had bm's and passing flatus. pain in abd and back. Allergies Allergy/AdvReac Type Severity Reaction Status Date / Time ezetimibe [From Vytorin] AdvReac Intermediate Unknown Verified 01/29/21 17:23 simvastatin [From Vytorin] AdvReac Intermediate Unknown Verified 01/29/21 17:23 Home Medications Medication Instructions Recorded Confirmed Type albuterol sulfate 90 mcg/actuation 2 puff INHALATION Q4 PRN 01/29/21 01/29/21 History aerosol inhaler aspirin 81 mg tablet,delayed 81 mg PO QAM 01/29/21 01/29/21 History release (Aspirin Low Dose) atorvastatin 40 mg tablet 50 mg PO HS 01/29/21 01/29/21 History carvedilol 6.25 mg tablet 6.25 mg PO BID 01/29/21 01/29/21 History fluticasone propionate 110 2 puff INHALATION BID 01/29/21 01/29/21 History mcg/actuation HFA aerosol inhaler (Flovent HFA) losartan 25 mg tablet 25 mg PO QAM 01/29/21 01/29/21 History metformin 500 mg tablet 500 mg PO BID 01/29/21 01/29/21 History Patient History Medical History (Updated 02/02/21 @ 11:57 by Arnie Covington DO, FACS) Abdominal pain Sacroiliac joint pain Ventral hernia Social History Smoking Status: Former smoker Preferred Language: Kyrgyz Communication Ability: Effective Beliefs That Will Affect Care: None marital status: / Current Living Situation: Family How many Children do You have: 1 Feels Safe at Home: Yes Assistive Devices: Brace/Splint/Immobilizer and Walker Review of Systems Review of Systems: All systems reviewed & are unremarkable except as noted in HPI & below Physical Exam Constitutional: WD/WN, vitals as above Respiratory: normal respiratory effort, lungs clear to auscultation Cardiovascular: RRR, no murmur, no edema Gastrointestinal (Abdomen): Percussion/Palpation: + abdomen tender (mild diffuse tenderness, worse at hernia site), abdomen soft and + hernia; no guarding, abdomen not rigid and no hepatosplenomegaly Results & Data ([facility]) Vital Signs (Past 12 Hours) Vital Signs Temp Pulse Pulse Resp BP Pulse Ox 02/02/21 08:09 36.5 C 87 20 138/81 91 02/02/21 07:34 79 02/02/21 03:13 36.6 C 89 18 130/81 94 02/02/21 00:17 82 Diagnostic Findings Personally reviewed and interpreted both CT and kub. Ventral hernia containing non-obstructed bowel, KUB with no SBO, stool and air in colon. KUB HISTORY: Possible small bowel obstruction. Follow-up. COMPARISON: None. FINDINGS: There is a large amount of stool seen throughout the colon. An aortobiiliac stent graft is again noted. No dilated loops of small bowel to suggest an obstruction. No renal calculi. No ureteral calculi. No pneumoperitoneum or pneumatosis. IMPRESSION: 1. No evidence for small bowel obstruction. 2. Large amount of stool seen throughout the colon. ABDOMEN AND PELVIS CT WITH ORAL CONTRAST CT DOSE: 715.41 mGy.cm HISTORY: Generalized abdominal pain. Assess for small bowel obstruction. TECHNIQUE: Multiaxial CT images of the abdomen and pelvis were performed following the use of oral contrast. A dose lowering technique was utilized adhering to the principles of ALARA. COMPARISON STUDY: Abdomen and pelvis CT 01/29/2021. FINDINGS: Patchy and linear densities at the lung bases posteriorly favor subsegmental atelectasis or scarring. No pneumoperitoneum. No pneumatosis. Redemonstration of the acute mild to moderate superior endplate compression fracture at L1 demonstrating up to 2 3 mm of retropulsion the posterior superior corner. No significant central canal narrowing. There is mild paravertebral edema at this location. The heart remains mildly enlarged. Coronary artery calcifications are noted. There is a small hiatus hernia. Multiple tiny gallstones are noted. No gallbladder wall thickening. The liver, spleen, adrenal glands, and pancreas are unremarkable. No retroperitoneal lymphadenopathy. Redemonstration of the aortobiiliac stent graft. 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 No bladder wall thickening. The prostate gland is normal in size. No pelvic free fluid. No retroperitoneal lymphadenopathy. Bilateral renal hypodense lesions are again noted. These are incompletely characters on this noncontrast study but favor cysts. There is mild bilateral cortical renal scarring. No renal or ureteral stones. No hydronephrosis. Small fat-containing upper abdominal midline ventral hernias. There is also a moderate size midline ventral hernia containing multiple loops of small bowel. There is contrast within the nondilated loops of bowel both within and proximal to this hernia. However, the small bowel loops distal to the hernia site are decompressed and do not contain contrast. Therefore, this could represent a developing small bowel obstruction with the transition point located at the hernia site. Consider a follow-up KUB to evaluate for passage of the oral contrast and to exclude the possibility of developing small bowel obstruction. Mildly distended gas and stool-filled colon which has progressed. IMPRESSION: 1. There is again noted a moderate size midline ventral hernia containing multiple loops of small bowel. There is contrast within the nondilated loops of bowel both within and proximal to this hernia. However, the small bowel loops distal to the hernia site are decompressed and do not contain contrast. Therefore, this could represent a developing small bowel obstruction with the transition point located at the hernia site. Consider a follow-up KUB to evaluate for passage of the oral contrast and to exclude the possibility of developing small bowel obstruction. 2. Mildly distended gas and stool-filled colon which has progressed. 3. Redemonstration of the superior endplate compression fracture at L1. 4. 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 5. Cholelithiasis. 6. Additional findings as described above. PG Care Time/CCT Total # of Minutes Spent Total Time Spent with Patient: Total time spent is greater than 50% in coordination of care (as documented) at patient's floor/unit and/or counseling patient: Coding Level of Care Code 86690 Inpt Consult Level 3 Diagnoses Abdominal pain R10.9 Ventral hernia K43.9
[2021-02-02] MEDS: POLYETHYLENE (MIRALAX) 17 GM PACK PO PRN (12:04)
--- NOTE | 2021-02-02 16:46 | Hospitalist Progress Note ---
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 He is being managed for the following. #. Compression fracture of lumbar vertebra #. Acute encephalopathy Patient performs independent ADLs per his daughter He is AO x3 at baseline Likely secondary to pneumonia and acute pain now being contributed by pain medications. Admitting CAT scan of lumbar spine demonstrate superior endplate fracture of L1 BLE neurovascular status WNL Orthopedics on board: No evidence of canal compromise or neurologic deficit. Ordered TLSO brace to be worn once able to transition to chair and undergo PT/OT. If symptoms continue to be limiting in nature, he may be a candidate for an L1 kyphoplasty. Patient is doing well with regard to pain control today, still not fully orient ed. PT OT onboard. Expect improvement with ongoing PT OT and pain management. We will continue to monitor him medically. Continue with as needed pain medications. #. Pneumonia Admitted CXR: Opacities at the right mid lower lung region suggestive of atelectasis versus infiltrative process WBC elevated at around 15,000. Down to normal. Patient improving clinically and lab barrow, will transition him to p.o. antibiotic for 4 more days - stop Date Feb 04. Continue to monitor. #. Constipation Patient not able to move bowel since admission Patient complains of ongoing belly pain and at times feels like he needs to move bowel Likely secondary to pain which is exacerbated by pain medication Continue with Colace, MiraLAX, daily Relistor at reduced dose [due to his creatinine clearance] until he moves his bowel normally. 02/01 CTAP suggestive of developing SBO - surgery consulted, 02/02 follow-up KUB x-ray ruled out SBO. Both imaging suggestive of large amount of stool throughout the colon. Surgery recommended outpatient follow-up with surgery for hernia. #. Diabetes: Metformin held, continue with sliding scale #. Resume home medication for hypertension, COPD, hyperlipidemia, CAD 01/30 echo: EF 35 to 40% with moderately reduced LV systolic function, moderate aortic valve sclerosis, mild MR, mild aortic root dilatation. Blood pressure elevated despite home medication likely secondary to pain. Will put in as needed iv medications. Also added alfonzo Hctz 02/01, reassess for discontinuation after pain management. #. Hep for DVT prophylaxis PT recommending SNF upon discharge. Patient's daughter called and updated about her father. She is agreeable and understanding to the plan of care. Admission and Anticipated Discharge Date Admission Date: January 29, 2021 Subjective Patient is lying in bed, on 2 L oxygen by nasal cannula, NAD, pain exacerbated with movement but under control when not moving. Patient looks better today compared to yesterday, he was able to assist himself with moving in the bed as compared to yesterday. Per RN, he moved a little bowel today morning. He is eating okay. He was AO x2 [not to time]. Other review of symptoms are negative. Patient is voiding urine normally. Patient has not moved his bowel. Physical Exam Physical Exam: GENERAL: Alert and oriented x2. Mild distress due to pain, on 2 L nasal cannula oxygen HEENT: No pallor, no icterus. Pupils equal, round and reactive to light. Oral mucosa moist. NECK: No JVD, no neck masses. HEART: S1 and S2 heard. Regular rate and rhythm. No murmur, no gallop. RESPIRATORY SYSTEM: Normal AP diameter. No accessory muscle use. No wheezing, no crackles. Decreased breath sounds due to pain. ABDOMEN: Soft, bowel sounds present, nontender, no distention. CENTRAL NERVOUS SYSTEM: No facial droop. Speech is clear. Obeys simple commands. Moves extremities. EXTREMITIES: No edema, no erythema seen. Distal neurovascular status in BLE WNL. Results & Data Results & Data ([facility]) Vital Signs (Past 12 Hours) Vital Signs Temp Pulse Pulse Resp BP Pulse Ox 02/02/21 15:24 36.5 C 82 20 128/85 96 02/02/21 15:23 92 H 02/02/21 11:58 36.5 C 97 H 20 169/104 H 97 02/02/21 08:09 36.5 C 87 20 138/81 91 02/02/21 07:34 79
[2021-02-02] MEDS: MAGNESIUM HYDROXIDE SUSP 30 ML UDC PO PRN (17:01)
[2021-02-02] MEDS: ONDANSETRON INJ 2 MG/ML 2 ML VIAL IV PRN (21:08)
[2021-02-03] MEDS: DOXYCYCLINE HYCLATE 100 MG CAP PO SCH ×2 (08:10→21:00)
[2021-02-03] MEDS: ASPIRIN 81 MG ECTAB PO SCH (08:10)
[2021-02-03] MEDS: AMOXICILLIN/CLAVULANATE 875 MG TAB PO SCH ×2 (08:10→17:14)
[2021-02-03] MEDS: carvediloL 6.25 MG TAB PO SCH ×2 (08:10→21:00)
[2021-02-03] MEDS: DOCUSATE SODIUM/SENNA 50/8.6MG TAB PO SCH ×2 (08:10→21:01)
[2021-02-03] MEDS: HEPARIN SOD 5,000 UNIT/0.5 ML VIAL SQ SCH ×2 (08:11→21:01)
[2021-02-03] MEDS: FLUTICASONE FUROATE 100MCG 14 PUFFS/INHALER INH SCH (08:11)
[2021-02-03] MEDS: hydroCHLOROthiazide 25 MG TAB PO SCH (08:11)
[2021-02-03] MEDS: LIDOCAINE 5% 1 PATCH TD SCH (08:12)
[2021-02-03] MEDS: LOSARTAN POTASSIUM 25 MG TAB PO SCH (08:12)
[2021-02-03] MEDS: MAGNESIUM OXIDE 400 MG TAB PO SCH (08:13)
[2021-02-03] MEDS: METHYLNALTREXONE BROMIDE 12 MG/0.6 ML VIAL SQ SCH (08:13)
[2021-02-03] MEDS: ACETAMINOPHEN 325 MG TAB PO PRN (08:13)
[2021-02-03] MEDS: POLYETHYLENE (MIRALAX) 17 GM PACK PO PRN (08:13)
[2021-02-03] MEDS: MAGNESIUM HYDROXIDE SUSP 30 ML UDC PO PRN (08:13)
[2021-02-03] MEDS: INSULIN ASPART 100 UNITS/ML 3 ML PEN SC SCH ×4 (08:28→20:55)
--- NOTE | 2021-02-03 10:40 | Orthopedic Progress Note ---
Date of Service February 03, 2021 Assessment & Plan (1) Compression fracture of lumbar vertebra: Plan: At this time the patient still struggling with significant axial back pain. He would most likely be a very good candidate for a kyphoplasty however I am concerned that any anesthetic in light of his encephalopathy would exacerbate his mental issues. Is reasonable to take this on a day by day basis and assess his candidacy for surgery. I would like to update x-rays lumbar spine. Admission and Anticipated Discharge Date Admission Date: January 29, 2021 Subjective * Patient continues to complain of incapacitating back pain with some abdominal discomfort. Physical Exam Physical Exam: On exam he is in bed. Is neurologically intact. He is in obvious distress. Results & Data ([facility]) Vital Signs (Past 12 Hours) Vital Signs Temp Pulse Pulse Pulse Resp BP Pulse Ox 02/03/21 07:35 36.4 C L 86 16 179/106 H 98 02/03/21 06:18 83 02/03/21 03:03 36.7 C 87 16 137/88 98 02/03/21 00:00 63
[2021-02-03] MEDS ORDERED: MINERAL OIL ENEMA 133 ML BTL PR ONE (11:48)
[2021-02-03] MEDS: traMADol HCL 50 MG TABLET PO PRN ×2 (12:05→21:00)
--- NOTE | 2021-02-03 12:15 | XRay Report ---
XR lumbar spine 2-3V CLINICAL HISTORY: back pain COMPARISON STUDY: Lumbar spine CT 01/29/2021. FINDINGS: There is again noted acute superior endplate compression fracture at L1. This demonstrates progressive loss of height anteriorly of up to 50% with anterior displacement of the anterior cortex measuring up to 9 mm. No associated retropulsion. No additional fractures identified within the lumba r spine. An aortobiiliac stent graft is again noted. There is mild to moderate degenerative disc dise ase within the thoracic spine as well as facet degenerative changes. IMPRESSION: Redemonstration of the acute superior endplate compression fracture at L1. This demonstr ates progressive loss of height anteriorly of up to 50%. No associated retropulsion. ACT 112: Negative or not required by law. Electronically signed by: Veto Morales M.D. 02/03/2021 12:14 PM
[2021-02-03] MEDS: oxyCODONE HCL IR 5 MG TAB (IMMEDIATE RELEASE) PO PRN ×2 (13:17→23:53)
--- NOTE | 2021-02-03 16:39 | Hospitalist Progress Note ---
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 He is being managed for the following. #. Compression fracture of lumbar vertebra #. Acute encephalopathy Patient performs independent ADLs per his daughter He is AO x3 at baseline Likely secondary to pneumonia and acute pain now being contributed by pain medications. Admitting CAT scan of lumbar spine demonstrate superior endplate fracture of L1 BLE neurovascular status WNL Orthopedics on board: No evidence of canal compromise or neurologic deficit. Ordered TLSO brace to be worn once able to transition to chair and undergo PT/OT. Considering kyphoplasty. Patient is doing well with regard to pain control today, still not fully oriented. PT OT onboard. Expect improvement with ongoing PT OT and pain management. We will continue to monitor him medically. Continue with as needed pain medications. #. Pneumonia Admitted CXR: Opacities at the right mid lower lung region suggestive of atelectasis versus infiltrative process WBC elevated at around 15,000. Down to normal. Patient improving clinically and lab barrow, will transition him to p.o. antibiotic for 4 more days - stop Date Feb 04. Continue to monitor. #. Constipation Patient not able to move bowel since admission Patient complains of ongoing belly pain and at times feels like he needs to move bowel Likely secondary to pain which is exacerbated by pain medication Continue with Colace, MiraLAX, daily Relistor at reduced dose [due to his creatinine clearance] until he moves his bowel normally. 02/01 CTAP suggestive of developing SBO - surgery consulted, 02/02 follow-up KUB x-ray ruled out SBO. Both imaging suggestive of large amount of stool throughout the colon. Surgery recommended outpatient follow-up with surgery for hernia. We will try enema and if it does not work, p.o. lactulose today #. Diabetes: Metformin held, continue with sliding scale #. Resume home medication for hypertension, COPD, hyperlipidemia, CAD 01/30 echo: EF 35 to 40% with moderately reduced LV systolic function, moderate aortic valve sclerosis, mild MR, mild aortic root dilatation. Blood pressure elevated despite home medication likely secondary to pain. Will put in as needed iv medications. Also added alfonzo Hctz 02/01, reassess for discontinuation after pain management. #. Hep for DVT prophylaxis PT recommending SNF upon discharge. Patient's family updated at bedside. He is agreeable and understanding to the plan of care. Admission and Anticipated Discharge Date Admission Date: January 29, 2021 Subjective Patient is lying in bed, on 2 L oxygen by nasal cannula, NAD, pain exacerbated with movement but under control when not moving. Patient slightly improved than yesterday with regard to pain control. Per RN, he moved a little bowel yesterday morning, has not eaten much today. Patient is still complaining of belly pain. We will try enema if it does not work p.o. lactulose. Physical Exam Physical Exam: GENERAL: Alert and oriented x2. Mild distress due to pain, on 2 L nasal cannula oxygen HEENT: No pallor, no icterus. Pupils equal, round and reactive to light. Oral mucosa moist. NECK: No JVD, no neck masses. HEART: S1 and S2 heard. Regular rate and rhythm. No murmur, no gallop. RESPIRATORY SYSTEM: Normal AP diameter. No accessory muscle use. No wheezing, no crackles. Decreased breath sounds due to pain. ABDOMEN: Soft, bowel sounds present, nontender, no distention. CENTRAL NERVOUS SYSTEM: No facial droop. Speech is clear. Obeys simple commands. Moves extremities. EXTREMITIES: No edema, no erythema seen. Distal neurovascular status in BLE WNL. Results & Data Results & Data ([facility]) Vital Signs (Past 12 Hours) Vital Signs Temp Pulse Pulse Pulse Resp BP BP 02/03/21 15:01 81 02/03/21 14:51 36.4 C L 85 18 128/85 02/03/21 11:00 36.3 C L 81 18 142/88 H 02/03/21 07:35 36.4 C L 86 16 179/106 H 02/03/21 06:18 83 Pulse Ox 02/03/21 15:01 02/03/21 14:51 96 02/03/21 11:00 99 02/03/21 07:35 98 02/03/21 06:18
[2021-02-03] MEDS ORDERED: LACTULOSE SYRUP 20 GM/30 ML UDC PO ONE (16:45)
[2021-02-04] MEDS: DOCUSATE SODIUM/SENNA 50/8.6MG TAB PO SCH ×2 (09:12→20:33)
[2021-02-04] MEDS: AMOXICILLIN/CLAVULANATE 875 MG TAB PO SCH ×2 (09:12→17:34)
[2021-02-04] MEDS: hydroCHLOROthiazide 25 MG TAB PO SCH (09:12)
[2021-02-04] MEDS: HEPARIN SOD 5,000 UNIT/0.5 ML VIAL SQ SCH ×2 (09:12→20:36)
[2021-02-04] MEDS: carvediloL 6.25 MG TAB PO SCH ×2 (09:12→20:33)
[2021-02-04] MEDS: ASPIRIN 81 MG ECTAB PO SCH (09:12)
[2021-02-04] MEDS: FLUTICASONE FUROATE 100MCG 14 PUFFS/INHALER INH SCH (09:13)
[2021-02-04] MEDS: LIDOCAINE 5% 1 PATCH TD SCH (09:13)
[2021-02-04] MEDS: DOXYCYCLINE HYCLATE 100 MG CAP PO SCH (09:13)
[2021-02-04] MEDS: LOSARTAN POTASSIUM 25 MG TAB PO SCH (09:14)
[2021-02-04] MEDS: MAGNESIUM OXIDE 400 MG TAB PO SCH (09:14)
[2021-02-04] MEDS: METHYLNALTREXONE BROMIDE 12 MG/0.6 ML VIAL SQ SCH (09:14)
[2021-02-04] MEDS: INSULIN ASPART 100 UNITS/ML 3 ML PEN SC SCH ×4 (09:15→22:24)
[2021-02-04] MEDS: oxyCODONE HCL IR 5 MG TAB (IMMEDIATE RELEASE) PO PRN ×2 (09:27→20:33)
--- NOTE | 2021-02-04 14:23 | Hospitalist Progress Note ---
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 He is being managed for the following. #. Compression fracture of lumbar vertebra #. Acute encephalopathy Patient performs independent ADLs per his daughter He is AO x3 at baseline Likely secondary to pneumonia and acute pain now being contributed by pain medications. Admitting CT scan of lumbar spine demonstrate superior endplate fracture of L1 BLE neurovascular status [facility] on board: No evidence of canal compromise or neurologic deficit. Ordered TLSO brace to be worn once able to transition to chair and undergo PT/OT. Considering kyphoplasty. Patient is doing well with regard to pain control today, still not fully oriented. PT OT onboard. Expect improvement with ongoing PT OT and pain management. We will continue to monitor him medically. Continue with as needed pain medications. #. Pneumonia Admitted CXR: Opacities at the right mid lower lung region suggestive of atelectasis versus infiltrative process WBC elevated at around 15,000. Down to normal. Patient improving clinically and lab barrow, will transition him to p.o. antibiotic for 4 more days - stop Date Feb 04. Continue to monitor. #. Constipation Patient not able to move bowel since admission Patient complains of ongoing belly pain and at times feels like he needs to move bowel Likely secondary to pain which is exacerbated by pain medication Continue with Colace, MiraLAX, daily Relistor at reduced dose [due to his creatinine clearance] until he moves his bowel normally. 02/01 CTAP suggestive of developing SBO - surgery consulted, 02/02 follow-up KUB x-ray ruled out SBO. Both imaging suggestive of large amount of stool throughout the colon. Surgery recommended outpatient follow-up with surgery for hernia. #. Diabetes: Metformin held, continue with sliding scale #. Resume home medication for hypertension, COPD, hyperlipidemia, CAD 01/30 echo: EF 35 to 40% with moderately reduced LV systolic function, moderate aortic valve sclerosis, mild MR, mild aortic root dilatation. Blood pressure elevated despite home medication likely secondary to pain. Will put in as needed iv medications. Also added alfonzo Hctz 02/01, reassess for discontinuation after pain management. #. Hep for DVT prophylaxis PT recommending SNF upon discharge. Labs Checked ROS-No Headache, No Visual Changes, No Nausea, No Vomiting, No Fever, No Chills, No Neck Pain or Stiffness, No Chest Pain, No Palpitations, No SOB, No GOODWIN, No Cough, No Sputum, No Wheezing, No Abdominal Pain, No Diarrhea, No Hematemesis, No Hemoptysis, No Unexpected Weight Loss, No Flank pain, No Melena, No Hematochezia, No Frequency, No Urgency, No Burning, No Hematuria, No Rashes, No Diaphoresis. Appetite is Normal, +Back Pain Physical Exam Gen-AAO x 3, NAD, Afebrile Head-NCAT, EOMI, PERRLA, Anicteric Sclera, No Posterior Pharyngeal Erythema Neck-Supple, No JVD, No Thyromegaly, No Masses, No LAD, No Bruits Lungs-Clear to Auscultation Bilaterally, No Rales, No Rhonchi, No Wheezing, No Crepitus Chest-No S4, +S1, +S2, No S3, No Murmurs, No Rubs, No Gallops, No Ectopy Abdomen-Soft, Bowel Sounds Present, Non Tender, Non Distended, No Hepatomegaly, No Splenomegaly, No Palpable Masses, No Rebound, No Rigidity, No Guarding Musculoskeletal-Full Range of Motion Bilaterally, No CVAT Extremities-No Cyanosis, No Clubbing, No Edema Nuero-Cranial Nerves II-XII grossly intact, Motor WNL, DTRs WNL, Strength WNL, Non Focal Psych-Normal Mood Admission and Anticipated Discharge Date Admission Date: January 29, 2021 Results & Data Results & Data ([facility]) Vital Signs (Past 12 Hours) Vital Signs Temp Pulse Pulse Resp BP Pulse Ox 02/04/21 11:08 36.4 C L 91 H 16 128/91 93 02/04/21 08:01 85 02/04/21 07:35 36.4 C L 89 16 138/87 97 02/04/21 03:05 36.5 C 91 H 18 128/82 97
[2021-02-04] MEDS: MAGNESIUM HYDROXIDE SUSP 30 ML UDC PO PRN (18:12)
[2021-02-04] MEDS: POLYETHYLENE (MIRALAX) 17 GM PACK PO PRN (20:38)
[2021-02-05 07:45] LABS: Hematocrit (blood only) 40.7 % (42-52); Hemoglobin 14.5 g/dL (14.0-18.0); Mean Corpuscular Hemoglobin 29.7 pg (25-34); Mean Corpuscular Hgb Conc 35.6 g/dL (32-36); Mean Corpuscular Volume 83.4 fL (80-100); Mean Platelet Volume 10.4 fL (7.4-10.4); Platelet Count 139 K/uL (130-400); RDW Coefficient of Variation 13.9 % (11.5-14.5); RDW Standard Deviation 42.2 fL (36.4-46.3); Red Blood Count 4.88 M/uL (4.7-6.1); White Blood Count 10.54 K/uL (4.8-10.8)
[2021-02-05] MEDS: FLUTICASONE FUROATE 100MCG 14 PUFFS/INHALER INH SCH (07:52)
[2021-02-05] MEDS: hydroCHLOROthiazide 25 MG TAB PO SCH (07:53)
[2021-02-05] MEDS: carvediloL 6.25 MG TAB PO SCH ×2 (07:53→21:42)
[2021-02-05] MEDS: ASPIRIN 81 MG ECTAB PO SCH (07:53)
[2021-02-05] MEDS: HEPARIN SOD 5,000 UNIT/0.5 ML VIAL SQ SCH ×2 (07:53→21:41)
[2021-02-05] MEDS: LOSARTAN POTASSIUM 25 MG TAB PO SCH (07:53)
[2021-02-05] MEDS: LIDOCAINE 5% 1 PATCH TD SCH (07:54)
[2021-02-05] MEDS: MAGNESIUM OXIDE 400 MG TAB PO SCH (07:54)
[2021-02-05] MEDS: DOCUSATE SODIUM/SENNA 50/8.6MG TAB PO SCH ×2 (07:55→21:47)
[2021-02-05] MEDS: METHYLNALTREXONE BROMIDE 12 MG/0.6 ML VIAL SQ SCH (08:14)
[2021-02-05] MEDS: INSULIN ASPART 100 UNITS/ML 3 ML PEN SC SCH ×4 (08:15→21:38)
[2021-02-05 08:22] LABS: BUN Creatinine Ratio 22.2 (10-20); Calcium 9.9 mg/dl (8.5-10.1); Creatinine Clr Calc Pharmacy 44.9 ml/min; Est GFR (African American) 56.3 ml/min; Est GFR (Non-African American) 48.5 ml/min; Potassium 4.3 mmol/L (3.5-5.1)
[2021-02-05] MEDS: ACETAMINOPHEN 325 MG TAB PO PRN (11:17)
[2021-02-05] MEDS ORDERED: SODIUM CHLORIDE 0.9% 1000ML 1,000 ML IV ONE (11:23)
--- NOTE | 2021-02-05 11:36 | Hospitalist Progress Note ---
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 He is being managed for the following. #. Compression fracture of lumbar vertebra #. Acute encephalopathy Patient performs independent ADLs per his daughter He is AO x3 at baseline Likely secondary to pneumonia and acute pain now being contributed by pain medications. Admitting CT scan of lumbar spine demonstrate superior endplate fracture of L1 BLE neurovascular status [facility] on board: No evidence of canal compromise or neurologic deficit. Ordered TLSO brace to be worn once able to transition to chair and undergo PT/OT. Considering kyphoplasty. PT got him up today, dropped his BP, 1 Liter bolus ordered Golytely 4 L ordered for today 02/05 Patient is doing well with regard to pain control today, still not fully oriented. PT OT onboard. Expect improvement with ongoing PT OT and pain management. We will continue to monitor him medically. Continue with as needed pain medications. #. Pneumonia Admitted CXR: Opacities at the right mid lower lung region suggestive of atelectasis versus infiltrative process WBC elevated at around 15,000. Down to normal. Abx stop Date Feb 04. #. Constipation Patient not able to move bowel since admission Patient complains of ongoing belly pain and at times feels like he needs to move bowel Likely secondary to pain which is exacerbated by pain medication Continue with Colace, MiraLAX, daily Relistor at reduced dose [due to his creatinine clearance] until he moves his bowel normally. 02/01 CTAP suggestive of developing SBO - surgery consulted, 02/02 follow-up KUB x-ray ruled out SBO. Both imaging suggestive of large amount of stool throughout the colon. Surgery recommended outpatient follow-up with surgery for hernia. Golytely ordered as above #. Diabetes: Metformin held, continue with sliding scale #. Resume home medication for hypertension, COPD, hyperlipidemia, CAD 01/30 echo: EF 35 to 40% with moderately reduced LV systolic function, moderate aortic valve sclerosis, mild MR, mild aortic root dilatation. Blood pressure elevated despite home medication likely secondary to pain. Will put in as needed iv medications. Also added alfonzo Hctz 02/01, reassess for discontinuation after pain management. #. Hep for DVT prophylaxis PT recommending SNF upon discharge. Labs Checked ROS-No Headache, No Visual Changes, No Nausea, No Vomiting, No Fever, No Chills, No Neck Pain or Stiffness, No Chest Pain, No Palpitations, No SOB, No GOODWIN, No Cough, No Sputum, No Wheezing, No Abdominal Pain, No Diarrhea, No Hematemesis, No Hemoptysis, No Unexpected Weight Loss, No Flank pain, No Melena, No Hematochezia, No Frequency, No Urgency, No Burning, No Hematuria, No Rashes, No Diaphoresis. Appetite is Normal, +Back Pain Physical Exam Gen-AAO x 3, NAD, Afebrile, feels awful Head-NCAT, EOMI, PERRLA, Anicteric Sclera, No Posterior Pharyngeal Erythema Neck-Supple, No JVD, No Thyromegaly, No Masses, No LAD, No Bruits Lungs-Clear to Auscultation Bilaterally, No Rales, No Rhonchi, No Wheezing, No Crepitus Chest-No S4, +S1, +S2, No S3, No Murmurs, No Rubs, No Gallops, No Ectopy Abdomen-Soft, Bowel Sounds Present, Non Tender, Non Distended, No Hepatomegaly, No Splenomegaly, No Palpable Masses, No Rebound, No Rigidity, No Guarding Musculoskeletal-Full Range of Motion Bilaterally, No CVAT Extremities-No Cyanosis, No Clubbing, No Edema Nuero-Cranial Nerves II-XII grossly intact, Motor WNL, DTRs WNL, Strength WNL, Non Focal Psych-Normal Mood Admission and Anticipated Discharge Date Admission Date: January 29, 2021 Results & Data Results & Data ([facility]) Vital Signs (Past 12 Hours) Vital Signs Temp Pulse Pulse Resp BP Pulse Ox 02/05/21 10:32 100/68 02/05/21 08:07 36.6 C 86 16 121/77 91 02/05/21 07:15 90 02/05/21 04:03 36.5 C 82 18 128/80 97 02/05/21 02:00 99 H 02/04/21 23:35 36.5 C 86 18 111/74 92
[2021-02-05] MEDS: LAVAGE SOLUTION 4000ML PO SCH ×9 (12:16→17:33)
[2021-02-05] MEDS: oxyCODONE HCL IR 5 MG TAB (IMMEDIATE RELEASE) PO PRN (16:40)
[2021-02-05] MEDS: traMADol HCL 50 MG TABLET PO PRN (21:46)
[2021-02-06] MEDS: oxyCODONE HCL IR 5 MG TAB (IMMEDIATE RELEASE) PO PRN ×3 (02:27→21:08)
[2021-02-06 07:37] LABS: Hematocrit (blood only) 39.6 % (42-52); Hemoglobin 13.9 g/dL (14.0-18.0); Mean Corpuscular Hemoglobin 29.1 pg (25-34); Mean Corpuscular Hgb Conc 35.1 g/dL (32-36); Mean Corpuscular Volume 82.8 fL (80-100); Mean Platelet Volume 10.6 fL (7.4-10.4); Platelet Count 132 K/uL (130-400); RDW Coefficient of Variation 13.7 % (11.5-14.5); RDW Standard Deviation 41.2 fL (36.4-46.3); Red Blood Count 4.78 M/uL (4.7-6.1); White Blood Count 11.32 K/uL (4.8-10.8)
[2021-02-06 08:07] LABS: Albumin Level 3.2 gm/dl (3.4-5.0); BUN Creatinine Ratio 24.7 (10-20); Calcium 9.3 mg/dl (8.5-10.1); Creatinine Clr Calc Pharmacy 48.1 ml/min; Est GFR (African American) 61.2 ml/min; Est GFR (Non-African American) 52.8 ml/min; Magnesium 2.3 mg/dl (1.8-2.4); Potassium 3.8 mmol/L (3.5-5.1)
[2021-02-06 08:10] LABS: Albumin Globulin Ratio 1.1 (0.9-2); Bilirubin,Total 1.4 mg/dl (0.2-1); Phosphorus 3.6 mg/dl (2.5-4.9); Total Protein 6.2 gm/dl (6.4-8.2)
[2021-02-06] MEDS: FLUTICASONE FUROATE 100MCG 14 PUFFS/INHALER INH SCH (08:19)
[2021-02-06] MEDS: LOSARTAN POTASSIUM 25 MG TAB PO SCH (08:21)
[2021-02-06] MEDS: HEPARIN SOD 5,000 UNIT/0.5 ML VIAL SQ SCH ×2 (08:21→21:10)
[2021-02-06] MEDS: ASPIRIN 81 MG ECTAB PO SCH (08:21)
[2021-02-06] MEDS: DOCUSATE SODIUM/SENNA 50/8.6MG TAB PO SCH ×2 (08:21→21:16)
[2021-02-06] MEDS: MAGNESIUM OXIDE 400 MG TAB PO SCH (08:22)
[2021-02-06] MEDS: carvediloL 6.25 MG TAB PO SCH ×2 (08:22→21:09)
[2021-02-06] MEDS: LIDOCAINE 5% 1 PATCH TD SCH (08:22)
[2021-02-06] MEDS: hydroCHLOROthiazide 25 MG TAB PO SCH (08:22)
[2021-02-06] MEDS: METHYLNALTREXONE BROMIDE 12 MG/0.6 ML VIAL SQ SCH (08:23)
[2021-02-06] MEDS: INSULIN ASPART 100 UNITS/ML 3 ML PEN SC SCH ×4 (09:12→21:17)
--- NOTE | 2021-02-06 10:50 | Hospitalist Progress Note ---
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 He is being managed for the following. #. Compression fracture of lumbar vertebra #. Acute encephalopathy Patient performs independent ADLs per his daughter He is AO x3 at baseline Likely secondary to pneumonia and acute pain, also being contributed by pain medications. Admitting CT scan of lumbar spine demonstrate superior endplate fracture of L1 BLE neurovascular status [facility] consulted No evidence of canal compromise or neurologic deficit. Ordered TLSO brace to be worn once able to transition to chair and undergo PT/OT. Considering kyphoplasty. PT OT onboard. Expect improvement with ongoing PT OT and pain management. Pain better controlled Continue with prn pain medications. He is able to answer some questions appropriately, however seems tangential , not sure what exactly is patient's baseline. Plan to discharge to SNF #. Pneumonia - resolved Admitted CXR: Opacities at the right mid lower lung region suggestive of atelectasis versus infiltrative process WBC elevated at around 15,000. Down to normal. Initially on Zosyn and doxy, switch to p.o., Abx stop Date Feb 04. #. Constipation - resolved Patient complained of ongoing abd. pain and at times feels like he needs to move bowels Likely secondary to pain which is exacerbated by pain medication Continued with Colace, MiraLAX, daily Relistor at reduced dose [due to his creatinine clearance] until he moves his bowel normally. 02/01 CTAP suggestive of developing SBO - surgery consulted, 02/02 follow-up KUB x-ray ruled out SBO. Both imaging suggestive of large amount of stool throughout the colon. Surgery recommended outpatient follow-up with surgery for hernia. Golytely ordered yesterday (02/06) -patient had multiple bowel movements overnight #. Diabetes Metformin held, continue with sliding scale #. Resume home medication for hypertension, COPD, hyperlipidemia, CAD 01/30 echo: EF 35 to 40% with moderately reduced LV systolic function, moderate aortic valve sclerosis, mild MR, mild aortic root dilatation. Blood pressure elevated despite home medication likely secondary to pain. Will put in as needed iv medications. Also added alfonzo Hctz 02/01, reassess for discontinuation after pain management. DVT prophylaxis- heparin PT recommending SNF upon discharge. Admission and Anticipated Discharge Date Admission Date: January 29, 2021 Subjective Patient seen in follow-up of L1 fracture, fall, confusion recent treatment for pneumonia Currently laying in bed, in no acute distress He is awake and he is able to answer simple questions appropriately however sometimes his answers are not clear Granddaughter is sitting at the bedside He denies any chest pain or shortness of breath, or abdominal pain Per nursing staff, overnight had several bowel movements, he was placed on bowel regimen yesterday due to ongoing constipation issues I discussed with him possible back surgery and patient says that he would not want surgery Granddaughter at the bedside however says that her parents would like to proceed with surgery when possible, will need to discuss further especially when the patient is not confused Review of Systems Review of Systems: All systems reviewed & are unremarkable except as noted in Subjective Physical Exam Physical Exam: Gen-AAO x 3, NAD Head-NCAT, EOMI, PERRLA, Anicteric Sclera, No Posterior Pharyngeal Erythema Neck-Supple, No JVD Lungs-Clear to Auscultation Bilaterally, No Rales, No Rhonchi, No Wheezing Chest- +S1, +S2, No S3, No Murmurs Abdomen-Soft, Bowel Sounds Present, Non Tender, Non Distended Musculoskeletal- Full Range of Motion Bilaterally, No CVAT Extremities- No Edema, moves extremities Neuro-awake and able to answer some simple questions appropriately, very hard of hearing, moves extremities, speech fluent Psych-Normal Mood Results & Data Results & Data ([facility]) Vital Signs (Past 12 Hours) Vital Signs Temp Pulse Pulse Resp BP Pulse Ox 02/06/21 07:56 36.5 C 82 16 131/85 99 02/06/21 07:08 83 02/06/21 04:10 36.4 C L 84 20 155/97 H 99 02/06/21 00:02 36.5 C 93 H 18 145/84 H 100 Laboratory Results 02/06/21 02/06/21 02/06/21 Range/Units 07:44 06:57 06:57 WBC 11.32 H (4.8-10.8) K/uL RBC 4.78 (4.7-6.1) M/uL Hgb 13.9 L (14.0-18.0) g/dL Hct 39.6 L (42-52) % MCV 82.8 (80-100) fL MCH 29.1 (25-34) pg MCHC 35.1 (32-36) g/dL RDW Std Deviation 41.2 (36.4-46.3) fL RDW Coeff of Ian 13.7 (11.5-14.5) % Plt Count 132 (130-400) K/uL MPV 10.6 H (7.4-10.4) fL Sodium 138 (136-145) mmol/L Potassium 3.8 (3.5-5.1) mmol/L Chloride 103 (98-107) mmol/L Carbon Dioxide 28 (21-32) mmol/L Anion Gap 7.0 (3-11) BUN 31 H (7-18) mg/dl Creatinine 1.26 (0.6-1.4) mg/dl Est Cr Clr Drug Dosing 48.1 ml/min Est GFR ( Amer) 61.2 ml/min Est GFR (Non-Af Amer) 52.8 ml/min BUN/Creatinine Ratio 24.7 H (10-20) Glucose 129 H (70-99) mg/dl POC Glucose 146 H (70-99) mg/dl Calcium 9.3 (8.5-10.1) mg/dl Phosphorus 3.6 (2.5-4.9) mg/dl Magnesium 2.3 (1.8-2.4) mg/dl Total Bilirubin 1.4 H (0.2-1) mg/dl AST 20 (15-37) U/L ALT 51 (12-78) U/L Alkaline Phosphatase 66 (45-117) U/L Total Protein 6.2 L (6.4-8.2) gm/dl Albumin 3.2 L (3.4-5.0) gm/dl Globulin 3.0 (2.5-4.0) gm/dl Albumin/Globulin Ratio 1.1 (0.9-2) 02/05/21 02/05/21 02/05/21 Range/Units 20:29 16:28 11:47 WBC (4.8-10.8) K/uL RBC (4.7-6.1) M/uL Hgb (14.0-18.0) g/dL Hct (42-52) % MCV (80-100) fL MCH (25-34) pg MCHC (32-36) g/dL RDW Std Deviation (36.4-46.3) fL RDW Coeff of Ian (11.5-14.5) % Plt Count (130-400) K/uL MPV (7.4-10.4) fL Sodium (136-145) mmol/L Potassium (3.5-5.1) mmol/L Chloride (98-107) mmol/L Carbon Dioxide (21-32) mmol/L Anion Gap (3-11) BUN (7-18) mg/dl Creatinine (0.6-1.4) mg/dl Est Cr Clr Drug Dosing ml/min Est GFR ( Amer) ml/min Est GFR (Non-Af Amer) ml/min BUN/Creatinine Ratio (10-20) Glucose (70-99) mg/dl POC Glucose 144 H 143 H 202 H (70-99) mg/dl Calcium (8.5-10.1) mg/dl Phosphorus (2.5-4.9) mg/dl Magnesium (1.8-2.4) mg/dl Total Bilirubin (0.2-1) mg/dl AST (15-37) U/L ALT (12-78) U/L Alkaline Phosphatase (45-117) U/L Total Protein (6.4-8.2) gm/dl Albumin (3.4-5.0) gm/dl Globulin (2.5-4.0) gm/dl Albumin/Globulin Ratio (0.9-2) Medications Administered Current Inpatient Medications Acetaminophen (Acetaminophen 325 Mg Tab) 650 mg PO Q4H PRN PRN Reason: Pain or Fever Stop: 02/28/21 23:37 Last Admin: 02/05/21 11:17 Dose: 650 mg Documented by: Albuterol (Albuterol Hfa 8 Gm Inhaler) 2 puffs INH Q4 PRN PRN Reason: Shortness Of Breath Or Wheezin Stop: 02/28/21 23:37 Albuterol (Albut/Ipratrop 3mg/0.5mg Neb 3 Ml Vial) 3 ml NEB Q4R PRN PRN Reason: Shortness Of Breath Or Wheezing Stop: 02/28/21 23:37 Aspirin (Aspirin 81 Mg Ectab) 81 mg PO QAM AL[facility]ZO Stop: 03/01/21 08:59 Last Admin: 02/06/21 08:21 Dose: 81 mg Documented by: Carvedilol (Carvedilol 6.25 Mg Tab) 6.25 mg PO BID ALFONZO Stop: 03/01/21 08:59 Last Admin: 02/06/21 08:22 Dose: 6.25 mg Documented by: Dextrose (Dextrose 50% 50 Ml Syringe) 25 - 50 ml IV UD PRN; Protocol PRN Reason: Hypoglycemia Protocol Stop: 02/28/21 23:44 Fluticasone Furoate (Fluticasone Furoate 100mcg 14 Puffs/Inhaler) 1 puffs INH DAILY AL[facility]ONZO Stop: 03/01/21 08:59 Last Admin: 02/06/21 08:19 Dose: 1 puffs Documented by: Glucagon (Glucagon For Inj 1 Mg Vial) 1 mg IM UD PRN; Protocol PRN Reason: Hypoglycemia Protocol Stop: 02/28/21 23:44 Glucose (Glucose 40% Gel 15 Gm Tube) 15 - 30 gm PO UD PRN; Protocol PRN Reason: Hypoglycemia Protocol Stop: 02/28/21 23:44 Glucose (Glucose 10 Tabs/Tube) 4 - 8 tabs PO UD PRN; Protocol PRN Reason: Hypoglycemia Protocol Stop: 02/28/21 23:44 Heparin Sodium (Porcine) (Heparin Sod 5,000 Unit/0.5 Ml Vial) 5,000 units SQ Q12 ALFONZO Stop: 03/01/21 08:59 Last Admin: 02/06/21 08:21 Dose: 5,000 units Documented by: Hydrochlorothiazide (Hydrochlorothiazide 25 Mg Tab) 12.5 mg PO QAM ALFONZO Stop: 03/03/21 18:59 Last Admin: 02/06/21 08:22 Dose: 12.5 mg Documented by: Insulin Aspart (Insulin Aspart 100 Units/Ml 3 Ml Pen) 0 units SC ACHS ALFONZO Stop: 03/01/21 07:29 Last Admin: 02/06/21 09:12 Dose: 1 units Documented by: Labetalol HCl (Labetalol Hcl Iv 5 Mg/Ml 20ml) 5 mg IV Q6H PRN PRN Reason: hypertension Stop: 03/02/21 18:59 Last Admin: 02/01/21 00:57 Dose: 5 mg Documented by: Lidocaine (Lidocaine 5% 1 Patch) [facility] [place] Stop: 03/02/21 01:59 Last Admin: 02/06/21 08:22 Dose: 1 patch Documented by: Losartan Potassium (Losartan Potassium 25 Mg Tab) 25 mg PO QAM [facility] Stop: 03/01/21 08:59 Last Admin: 02/06/21 08:21 Dose: 25 mg Documented by: Magnesium Hydroxide (Magnesium Hydroxide Susp 30 Ml Udc) 30 ml PO Q12H PRN PRN Reason: constipation Stop: 03/02/21 18:51 Last Admin: 02/04/21 18:12 Dose: 30 ml Documented by: Magnesium Oxide (Magnesium Oxide 400 Mg Tab) 400 mg PO [facility] Stop: 03/01/21 14:44 Last Admin: 02/06/21 08:22 Dose: 400 mg Documented by: Methylnaltrexone Saltese (Methylnaltrexone Saltese 12 Mg/0.6 Ml Vial) 6 mg SQ DAILY [facility] Stop: 03/04/21 08:59 Last Admin: 02/06/21 08:23 Dose: 6 mg Documented by: Miscellaneous (Carbohydrates For Hypoglycemia ) 15 - 30 gm PO UD PRN PRN Reason: Hypoglycemia Treatment Stop: 02/28/21 23:44 Miscellaneous (Remove Lidoderm Patch) 1 ea N/A DAILY@2100 [facility] Stop: 03/02/21 13:59 Last Admin: 02/05/21 21:39 Dose: 1 ea Documented by: Nitroglycerin (Nitroglycerin Sl 0.4 Mg/Tab Tab) 0.4 mg SL UD PRN PRN Reason: Chest Pain Stop: 02/28/21 23:37 Ondansetron HCl (Ondansetron Inj 2 Mg/Ml 2 Ml Vial) 4 mg IV Q6H PRN PRN Reason: Nausea Stop: 02/28/21 23:37 Last Admin: 02/02/21 21:08 Dose: 4 mg Documented by: Oxycodone HCl (Oxycodone Hcl Ir 5 Mg Tab (Immediate Release)) 5 - 10 mg PO QID PRN PRN Reason: Pain Stop: 02/14/21 01:22 Last Admin: 02/06/21 02:27 Dose: 5 mg Documented by: Polyethylene Glycol (Polyethylene (Miralax) 17 Gm Pack) 17 gm PO DAILY PRN PRN Reason: Constipation Stop: 02/28/21 23:37 Last Admin: 02/04/21 20:38 Dose: 17 gm Documented by: Senna/Docusate Sodium (Docusate Sodium/Senna 50/8.6mg Tab) 1 tab PO BID [facility] Stop: 03/03/21 20:59 Last Admin: 02/06/21 08:21 Dose: 1 tab Documented by: Tramadol HCl (Tramadol Hcl 50 Mg Tablet) 25 mg PO Q6H PRN PRN Reason: Pain Stop: 02/28/21 23:37 Last Admin: 02/05/21 21:46 Dose: 25 mg Documented by:
[2021-02-06] MEDS: traMADol HCL 50 MG TABLET PO PRN (14:20)
[2021-02-07 08:24] LABS: Hematocrit (blood only) 42.4 % (42-52); Hemoglobin 14.8 g/dL (14.0-18.0); Mean Corpuscular Hemoglobin 29.2 pg (25-34); Mean Corpuscular Hgb Conc 34.9 g/dL (32-36); Mean Corpuscular Volume 83.8 fL (80-100); Mean Platelet Volume 9.9 fL (7.4-10.4); Platelet Count 148 K/uL (130-400); Red Blood Count 5.06 M/uL (4.7-6.1); White Blood Count 8.92 K/uL (4.8-10.8)
[2021-02-07] MEDS: INSULIN ASPART 100 UNITS/ML 3 ML PEN SC SCH ×4 (08:52→21:33)
[2021-02-07 08:53] LABS: BUN Creatinine Ratio 21.8 (10-20); Calcium 9.6 mg/dl (8.5-10.1); Creatinine Clr Calc Pharmacy 47.8 ml/min; Est GFR (African American) 60.6 ml/min; Est GFR (Non-African American) 52.3 ml/min; Magnesium 2.4 mg/dl (1.8-2.4)
[2021-02-07] MEDS: hydroCHLOROthiazide 25 MG TAB PO SCH (08:53)
[2021-02-07] MEDS: MAGNESIUM OXIDE 400 MG TAB PO SCH (08:53)
[2021-02-07] MEDS: HEPARIN SOD 5,000 UNIT/0.5 ML VIAL SQ SCH ×2 (08:53→20:39)
[2021-02-07] MEDS: LOSARTAN POTASSIUM 25 MG TAB PO SCH (08:53)
[2021-02-07] MEDS: ASPIRIN 81 MG ECTAB PO SCH (08:53)
[2021-02-07 08:54] LABS: Phosphorus 3.8 mg/dl (2.5-4.9)
[2021-02-07] MEDS: LIDOCAINE 5% 1 PATCH TD SCH (08:54)
[2021-02-07] MEDS: FLUTICASONE FUROATE 100MCG 14 PUFFS/INHALER INH SCH (08:54)
[2021-02-07] MEDS: carvediloL 6.25 MG TAB PO SCH ×2 (08:54→20:39)
[2021-02-07] MEDS: METHYLNALTREXONE BROMIDE 12 MG/0.6 ML VIAL SQ SCH (08:55)
[2021-02-07] MEDS: DOCUSATE SODIUM/SENNA 50/8.6MG TAB PO SCH ×2 (08:57→20:44)
--- NOTE | 2021-02-07 12:31 | Hospitalist Progress Note ---
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 He is being managed for the following. Compression fracture of lumbar vertebra Acute encephalopathy - resolved Patient performs independent ADLs per his daughter He is AO x3 at baseline Likely secondary to pneumonia and acute pain, also being contributed by pain medications. Admitting CT scan of lumbar spine demonstrate superior endplate fracture of L1 BLE neurovascular status [facility] Orthopedics consulted No evidence of canal compromise or neurologic deficit. Ordered TLSO brace to be worn once able to transition to chair and undergo PT/OT. Considering kyphoplasty, however pt is now not interested - will discuss further with his family. PT OT onboard. Expect improvement with ongoing PT OT and pain management. Today (02/07), worked with PT, seems to be improving, also patient says that pain is much better now controlled. Pain better controlled Continue with prn pain medications. He is able to answer questions appropriately Plan to discharge to SNF Pneumonia - resolved Admitted CXR: Opacities at the right mid lower lung region suggestive of atelectasis versus infiltrative process WBC elevated at around 15,000. Down to normal. Initially on Zosyn and doxy, then switched to p.o., Abx stop Date Feb 04. Constipation - resolved Patient complained of ongoing abd. pain and at times feels like he needs to move bowels Likely secondary to pain which is exacerbated by pain medication Continued with Colace, MiraLAX, daily Relistor at reduced dose [due to his creatinine clearance] until he moves his bowel normally. 02/01 CTAP suggestive of developing SBO - surgery consulted, 02/02 follow-up KUB x-ray ruled out SBO. Both imaging suggestive of large amount of stool throughout the colon. Surgery recommended outpatient follow-up with surgery for hernia. Waqas ordered (02/06) -patient had multiple bowel movements Diabetes mellitus type 2 Metformin held, continue with sliding scale CKD stage 3 Beseline creatinine 1.4 Continue monitor, try to avoid nephrotoxic agents #. Resume home medication for hypertension, COPD, hyperlipidemia, CAD 01/30 echo: EF 35 to 40% with moderately reduced LV systolic function, moderate aortic valve sclerosis, mild MR, mild aortic root dilatation. BP elevated previously, despite home medication likely secondary to pain. Added alfonzo HCTZ 02/01, will DC now as current BP 108/75 - cont. to monitor DVT prophylaxis- heparin Dispo: PT recommending SNF upon discharge. Admission and Anticipated Discharge Date Admission Date: January 29, 2021 Subjective Patient seen in follow-up of L1 fracture, fall, confusion recent treatment for pneumonia Currently laying in bed, in no acute distress He is awake alert, and answering questions appropriately He denies any chest pain or shortness of breath Worked with PT, says that his back is feeling better and not in so much pain (did not take any pain meds today yet) He does report "gas pain" feels that he ate too fast, and previously he was not eating much He is having bowel movements now I discussed with him possible back surgery and patient says that he would not want surgery I discussed this with his daughter over the phone, and she is okay to proceed with SNF I encouraged patient's daughter to talk to the patient now as he is awake and fully alert. She will be able to call him this evening and will keep us posted if anything changes. In addition he is currently on nasal cannula, 1 L, satting 99%. Discussed this with nursing staff, seems that this is all for "comfort" per pt's wishes, and not needed. We will encourage incentive spirometer and flutter valve instead, will monitor O2 needs and will wean him off oxygen. Review of Systems Review of Systems: All systems reviewed & are unremarkable except as noted in Subjective Physical Exam Physical Exam: Gen- AAO x 3, NAD Head- NCAT, EOMI, PERRLA, Anicteric Sclera Neck- Supple, No JVD Lungs- Clear to Auscultation Bilaterally, No Rales, No Rhonchi, No Wheezing Chest- +S1, +S2, No S3, No Murmurs Abdomen- Soft, Bowel Sounds Present, Non Tender, Non Distended Musculoskeletal- Full Range of Motion Bilaterally, No CVAT Extremities- No Edema, moves extremities Neuro- alert and oriented x3, answers questions appropriately, very hard of hearing, speech fluent, moves extremities Psych-Normal Mood Results & Data Results & Data ([facility]) Vital Signs (Past 12 Hours) Vital Signs Temp Pulse Pulse Resp BP BP Pulse Ox 02/07/21 11:22 36.6 C 88 16 108/75 99 02/07/21 07:12 78 02/07/21 04:20 36.5 C 89 20 110/69 92 02/07/21 00:36 82 Laboratory Results 02/07/21 02/07/21 02/07/21 Range/Units 11:27 08:00 08:00 WBC 8.92 (4.8-10.8) K/uL RBC 5.06 (4.7-6.1) M/uL Hgb 14.8 (14.0-18.0) g/dL Hct 42.4 (42-52) % MCV 83.8 (80-100) fL MCH 29.2 (25-34) pg MCHC 34.9 (32-36) g/dL RDW Std Deviation 43.0 (36.4-46.3) fL RDW Coeff of Ian 14.0 (11.5-14.5) % Plt Count 148 (130-400) K/uL MPV 9.9 (7.4-10.4) fL Sodium 138 (136-145) mmol/L Potassium 4.0 (3.5-5.1) mmol/L Chloride 104 (98-107) mmol/L Carbon Dioxide 30 (21-32) mmol/L Anion Gap 4.0 (3-11) BUN 28 H (7-18) mg/dl Creatinine 1.27 (0.6-1.4) mg/dl Est Cr Clr Drug Dosing 47.8 ml/min Est GFR ( Amer) 60.6 ml/min Est GFR (Non-Af Amer) 52.3 ml/min BUN/Creatinine Ratio 21.8 H (10-20) Glucose 126 H (70-99) mg/dl POC Glucose 158 H (70-99) mg/dl Calcium 9.6 (8.5-10.1) mg/dl Phosphorus 3.8 (2.5-4.9) mg/dl Magnesium 2.4 (1.8-2.4) mg/dl 02/07/21 02/06/21 02/06/21 Range/Units 07:18 20:25 16:33 WBC (4.8-10.8) K/uL RBC (4.7-6.1) M/uL Hgb (14.0-18.0) g/dL Hct (42-52) % MCV (80-100) fL MCH (25-34) pg MCHC (32-36) g/dL RDW Std Deviation (36.4-46.3) fL RDW Coeff of Ian (11.5-14.5) % Plt Count (130-400) K/uL MPV (7.4-10.4) fL Sodium (136-145) mmol/L Potassium (3.5-5.1) mmol/L Chloride (98-107) mmol/L Carbon Dioxide (21-32) mmol/L Anion Gap (3-11) BUN (7-18) mg/dl Creatinine (0.6-1.4) mg/dl Est Cr Clr Drug Dosing ml/min Est GFR ( Amer) ml/min Est GFR (Non-Af Amer) ml/min BUN/Creatinine Ratio (10-20) Glucose (70-99) mg/dl POC Glucose 134 H 131 H 120 H (70-99) mg/dl Calcium (8.5-10.1) mg/dl Phosphorus (2.5-4.9) mg/dl Magnesium (1.8-2.4) mg/dl Medications Administered Current Inpatient Medications Acetaminophen (Acetaminophen 325 Mg Tab) 650 mg PO Q4H PRN PRN Reason: Pain or Fever Stop: 02/28/21 23:37 Last Admin: 02/05/21 11:17 Dose: 650 mg Documented by: Albuterol (Albuterol Hfa 8 Gm Inhaler) 2 puffs INH Q4 PRN PRN Reason: Shortness Of Breath Or Wheezin Stop: 02/28/21 23:37 Albuterol (Albut/Ipratrop 3mg/0.5mg Neb 3 Ml Vial) 3 ml NEB Q4R PRN PRN Reason: Shortness Of Breath Or Wheezing Stop: 02/28/21 23:37 Aspirin (Aspirin 81 Mg Ectab) 81 mg PO QAM [facility] Stop: 03/01/21 08:59 Last Admin: 02/07/21 08:53 Dose: 81 mg Documented by: Carvedilol (Carvedilol 6.25 Mg Tab) 6.25 mg PO BID [facility] Stop: 03/01/21 08:59 Last Admin: 02/07/21 08:54 Dose: 6.25 mg Documented by: Dextrose (Dextrose 50% 50 Ml Syringe) 25 - 50 ml IV UD PRN; Protocol PRN Reason: Hypoglycemia Protocol Stop: 02/28/21 23:44 Fluticasone Furoate (Fluticasone Furoate 100mcg 14 Puffs/Inhaler) 1 puffs INH DAILY [facility] Stop: 03/01/21 08:59 Last Admin: 02/07/21 08:54 Dose: 1 puffs Documented by: Glucagon (Glucagon For Inj 1 Mg Vial) 1 mg IM UD PRN; Protocol PRN Reason: Hypoglycemia Protocol Stop: 02/28/21 23:44 Glucose (Glucose 40% Gel 15 Gm Tube) 15 - 30 gm PO UD PRN; Protocol PRN Reason: Hypoglycemia Protocol Stop: 02/28/21 23:44 Glucose (Glucose 10 Tabs/Tube) 4 - 8 tabs PO UD PRN; Protocol PRN Reason: Hypoglycemia Protocol Stop: 02/28/21 23:44 Heparin Sodium (Porcine) (Heparin Sod 5,000 Unit/0.5 Ml Vial) 5,000 units SQ Q12 [facility] Stop: 03/01/21 08:59 Last Admin: 02/07/21 08:53 Dose: 5,000 units Documented by: Hydrochlorothiazide (Hydrochlorothiazide 25 Mg Tab) 12.5 mg PO QAM [facility] Stop: 03/03/21 18:59 Last Admin: 02/07/21 08:53 Dose: 12.5 mg Documented by: Insulin Aspart (Insulin Aspart 100 Units/Ml 3 Ml Pen) 0 units SC ACHS [facility] Stop: 03/01/21 07:29 Last Admin: 02/07/21 12:11 Dose: 2 units Documented by: Labetalol HCl (Labetalol Hcl Iv 5 Mg/Ml 20ml) 5 mg IV Q6H PRN PRN Reason: hypertension Stop: 03/02/21 18:59 Last Admin: 02/01/21 00:57 Dose: 5 mg Documented by: Lidocaine (Lidocaine 5% 1 Patch) [facility] [place] Stop: 03/02/21 01:59 Last Admin: 02/07/21 08:54 Dose: 1 patch Documented by: Losartan Potassium (Losartan Potassium 25 Mg Tab) 25 mg PO QAM [facility] Stop: 03/01/21 08:59 Last Admin: 02/07/21 08:53 Dose: 25 mg Documented by: Magnesium Hydroxide (Magnesium Hydroxide Susp 30 Ml Udc) 30 ml PO Q12H PRN PRN Reason: constipation Stop: 03/02/21 18:51 Last Admin: 02/04/21 18:12 Dose: 30 ml Documented by: Magnesium Oxide (Magnesium Oxide 400 Mg Tab) 400 mg PO QAM [facility] Stop: 03/01/21 14:44 Last Admin: 02/07/21 08:53 Dose: 400 mg Documented by: Methylnaltrexone [place] (Methylnaltrexone [place] 12 Mg/0.6 Ml Vial) 6 mg SQ DAILY [facility] Stop: 03/04/21 08:59 Last Admin: 02/07/21 08:55 Dose: 6 mg Documented by: Miscellaneous (Carbohydrates For Hypoglycemia ) 15 - 30 gm PO UD PRN PRN Reason: Hypoglycemia Treatment Stop: 02/28/21 23:44 Miscellaneous (Remove Lidoderm Patch) 1 ea N/A DAILY@2100 [facility] Stop: 03/02/21 13:59 Last Admin: 02/06/21 21:17 Dose: 1 ea Documented by: Nitroglycerin (Nitroglycerin Sl 0.4 Mg/Tab Tab) 0.4 mg SL UD PRN PRN Reason: Chest Pain Stop: 02/28/21 23:37 Ondansetron HCl (Ondansetron Inj 2 Mg/Ml 2 Ml Vial) 4 mg IV Q6H PRN PRN Reason: Nausea Stop: 02/28/21 23:37 Last Admin: 02/02/21 21:08 Dose: 4 mg Documented by: Oxycodone HCl (Oxycodone Hcl Ir 5 Mg Tab (Immediate Release)) 5 - 10 mg PO QID PRN PRN Reason: Pain Stop: 02/14/21 01:22 Last Admin: 02/06/21 21:08 Dose: 10 mg Documented by: Polyethylene Glycol (Polyethylene (Miralax) 17 Gm Pack) 17 gm PO DAILY PRN PRN Reason: Constipation Stop: 02/28/21 23:37 Last Admin: 02/04/21 20:38 Dose: 17 gm Documented by: Senna/Docusate Sodium (Docusate Sodium/Senna 50/8.6mg Tab) 1 tab PO BID [facility] Stop: 03/03/21 20:59 Last Admin: 02/07/21 08:57 Dose: 1 tab Documented by: Tramadol HCl (Tramadol Hcl 50 Mg Tablet) 25 mg PO Q6H PRN PRN Reason: Pain Stop: 02/28/21 23:37 Last Admin: 02/06/21 14:20 Dose: 25 mg Documented by:
[2021-02-07] MEDS: NITROGLYCERIN SL 0.4 MG/TAB TAB SL PRN ×2 (19:51→21:30)
[2021-02-07] MEDS: guaiFENesin 600 MG TABCR PO SCH (20:40)
[2021-02-07] MEDS: oxyCODONE HCL IR 5 MG TAB (IMMEDIATE RELEASE) PO PRN (21:30)
[2021-02-08 08:03] LABS: Hematocrit (blood only) 42.2 % (42-52); Hemoglobin 14.8 g/dL (14.0-18.0); Mean Corpuscular Hemoglobin 29.6 pg (25-34); Mean Corpuscular Hgb Conc 35.1 g/dL (32-36); Mean Corpuscular Volume 84.4 fL (80-100); Mean Platelet Volume 10.5 fL (7.4-10.4); Platelet Count 173 K/uL (130-400); RDW Standard Deviation 42.9 fL (36.4-46.3); White Blood Count 11.77 K/uL (4.8-10.8)
[2021-02-08 08:33] LABS: BUN Creatinine Ratio 19.5 (10-20); Calcium 9.5 mg/dl (8.5-10.1); Creatinine Clr Calc Pharmacy 44.9 ml/min; Est GFR (African American) 56.3 ml/min; Est GFR (Non-African American) 48.5 ml/min; Magnesium 2.5 mg/dl (1.8-2.4)
[2021-02-08] MEDS: INSULIN ASPART 100 UNITS/ML 3 ML PEN SC SCH ×4 (08:33→20:31)
[2021-02-08] MEDS: ASPIRIN 81 MG ECTAB PO SCH (08:36)
[2021-02-08] MEDS: guaiFENesin 600 MG TABCR PO SCH ×2 (08:36→20:33)
[2021-02-08] MEDS: HEPARIN SOD 5,000 UNIT/0.5 ML VIAL SQ SCH ×2 (08:36→20:33)
[2021-02-08] MEDS: carvediloL 6.25 MG TAB PO SCH ×2 (08:36→20:32)
[2021-02-08] MEDS: FLUTICASONE FUROATE 100MCG 14 PUFFS/INHALER INH SCH (08:36)
[2021-02-08] MEDS: MAGNESIUM OXIDE 400 MG TAB PO SCH (08:37)
[2021-02-08] MEDS: LOSARTAN POTASSIUM 25 MG TAB PO SCH (08:37)
[2021-02-08] MEDS: DOCUSATE SODIUM/SENNA 50/8.6MG TAB PO SCH (08:40)
[2021-02-08] MEDS: METHYLNALTREXONE BROMIDE 12 MG/0.6 ML VIAL SQ SCH (08:42)
[2021-02-08] MEDS: LIDOCAINE 5% 1 PATCH TD SCH (08:42)
[2021-02-08] MEDS ORDERED: DOCUSATE SODIUM/SENNA 50/8.6MG TAB PO PRN (13:45)
--- NOTE | 2021-02-08 17:19 | Hospitalist Progress Note ---
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 He is being managed for the following. Compression fracture of lumbar vertebra Acute encephalopathy - resolved Patient performs independent ADLs per his daughter He is AO x3 at baseline Likely secondary to pneumonia and acute pain, also being contributed by pain medications. Admitting CT scan of lumbar spine demonstrate superior endplate fracture of L1 BLE neurovascular status [facility] Orthopedics consulted No evidence of canal compromise or neurologic deficit. Ordered TLSO brace to be worn once able to transition to chair and undergo PT/OT. Considering kyphoplasty, however pt is now not interested - discussed further with his family. PT OT onboard. Expect improvement with ongoing PT OT and pain management. (02/07), worked with PT, seems to be improving, also patient says that pain is much better now controlled. Pain better controlled Continue with prn pain medications. He is able to answer questions appropriately Plan to discharge to SNF Pneumonia - resolved Admitted CXR: Opacities at the right mid lower lung region suggestive of atelectasis versus infiltrative process WBC elevated at around 15,000. Down to normal. Initially on Zosyn and doxy, then switched to p.o., Abx stop Date Feb 04. Constipation - resolved Patient complained of ongoing abd. pain and at times feels like he needs to move bowels Likely secondary to pain which is exacerbated by pain medication Continued with Colace, MiraLAX, daily Relistor at reduced dose [due to his creatinine clearance] until he moves his bowel normally. 02/01 CTAP suggestive of developing SBO - surgery consulted, 02/02 follow-up [facility] x-ray ruled out SBO. Both imaging suggestive of large amount of stool throughout the colon. Surgery recommended outpatient follow-up with surgery for hernia. Waqas ordered (02/06) -patient had multiple bowel movements Diabetes mellitus type 2 Metformin held, continue with sliding scale CKD stage 3 Beseline creatinine 1.4 Continue monitor, try to avoid nephrotoxic agents #. Resume home medication for hypertension, COPD, hyperlipidemia, CAD 01/30 echo: EF 35 to 40% with moderately reduced LV systolic function, moderate aortic valve sclerosis, mild MR, mild aortic root dilatation. BP elevated previously, despite home medication likely secondary to pain. Added alfonzo HCTZ 02/01, will DC now as current BP 108/75 (02/07) - cont. to monitor DVT prophylaxis- heparin Dispo: PT recommending SNF upon discharge. Admission and Anticipated Discharge Date Admission Date: January 29, 2021 Subjective Patient seen in follow-up of L1 fracture, fall, confusion recent treatment for pneumonia Currently laying in bed, in no acute distress He is awake alert, and answering questions appropriately He denies any chest pain or shortness of breath says that his back is feeling better He is having bowel movements now I discussed with him possible back surgery and patient says that he would not want surgery I discussed this with his daughter over the phone, and she is okay to proceed with SNF I encouraged patient's daughter to talk to the patient and CM, CM aware. In addition he is currently on nasal cannula, 1 L, satting 99%. Discussed this with nursing staff, seems that this is all for "comfort" per pt's wishes, and not needed. We will encourage incentive spirometer and flutter valve instead, will monitor O2 needs and will wean him off oxygen if able. Review of Systems Review of Systems: All systems reviewed & are unremarkable except as noted in Subjective Physical Exam Physical Exam: Gen- AAO x 3, NAD Head- NCAT, EOMI, PERRLA, Anicteric Sclera Neck- Supple, No JVD Lungs- Clear to Auscultation Bilaterally, No Rales, No Rhonchi, No Wheezing Chest- +S1, +S2, No S3, No Murmurs Abdomen- Soft, Bowel Sounds Present, Non Tender, Non Distended Musculoskeletal- Full Range of Motion Bilaterally, No CVAT Extremities- No Edema, moves extremities Neuro- alert and oriented x3, answers questions appropriately, very hard of hearing, speech fluent, moves extremities Psych-Normal Mood Results & Data Results & Data ([facility]) Vital Signs (Past 12 Hours) Vital Signs Temp Pulse Pulse Resp BP BP Pulse Ox 02/08/21 15:25 36.5 C 51 L 18 128/79 95 02/08/21 15:22 82 02/08/21 11:52 86/57 L 02/08/21 11:51 94/66 L 02/08/21 11:45 36.5 C 86 16 110/76 98 02/08/21 08:31 36.5 C 82 16 161/95 H 99 02/08/21 08:00 80 02/08/21 07:33 36.4 C L 92 H 18 136/80 97 Laboratory Results 02/08/21 02/08/21 02/08/21 Range/Units 16:23 11:34 07:47 WBC (4.8-10.8) K/uL RBC (4.7-6.1) M/uL Hgb (14.0-18.0) g/dL Hct (42-52) % MCV (80-100) fL MCH (25-34) pg MCHC (32-36) g/dL RDW Std Deviation (36.4-46.3) fL RDW Coeff of Ian (11.5-14.5) % Plt Count (130-400) K/uL MPV (7.4-10.4) fL Sodium 137 (136-145) mmol/L Potassium 4.0 (3.5-5.1) mmol/L Chloride 103 (98-107) mmol/L Carbon Dioxide 29 (21-32) mmol/L Anion Gap 5.0 (3-11) BUN 26 H (7-18) mg/dl Creatinine 1.35 (0.6-1.4) mg/dl Est Cr Clr Drug Dosing 44.9 ml/min Est GFR ( Amer) 56.3 ml/min Est GFR (Non-Af Amer) 48.5 ml/min BUN/Creatinine Ratio 19.5 (10-20) Glucose 138 H (70-99) mg/dl POC Glucose 137 H 158 H (70-99) mg/dl Calcium 9.5 (8.5-10.1) mg/dl Phosphorus 4.0 (2.5-4.9) mg/dl Magnesium 2.5 H (1.8-2.4) mg/dl 02/08/21 02/08/21 02/07/21 Range/Units 07:47 07:27 21:07 WBC 11.77 H (4.8-10.8) K/uL RBC 5.00 (4.7-6.1) M/uL Hgb 14.8 (14.0-18.0) g/dL Hct 42.2 (42-52) % MCV 84.4 (80-100) fL MCH 29.6 (25-34) pg MCHC 35.1 (32-36) g/dL RDW Std Deviation 42.9 (36.4-46.3) fL RDW Coeff of Ian 14.0 (11.5-14.5) % Plt Count 173 (130-400) K/uL MPV 10.5 H (7.4-10.4) fL Sodium (136-145) mmol/L Potassium (3.5-5.1) mmol/L Chloride (98-107) mmol/L Carbon Dioxide (21-32) mmol/L Anion Gap (3-11) BUN (7-18) mg/dl Creatinine (0.6-1.4) mg/dl Est Cr Clr Drug Dosing ml/min Est GFR ( Amer) ml/min Est GFR (Non-Af Amer) ml/min BUN/Creatinine Ratio (10-20) Glucose (70-99) mg/dl POC Glucose 131 H 148 H (70-99) mg/dl Calcium (8.5-10.1) mg/dl Phosphorus (2.5-4.9) mg/dl Magnesium (1.8-2.4) mg/dl Medications Administered Current Inpatient Medications Acetaminophen (Acetaminophen 325 Mg Tab) 650 mg PO Q4H PRN PRN Reason: Pain or Fever Stop: 02/28/21 23:37 Last Admin: 02/05/21 11:17 Dose: 650 mg Documented by: Albuterol (Albuterol Hfa 8 Gm Inhaler) 2 puffs INH Q4 PRN PRN Reason: Shortness Of Breath Or Wheezin Stop: 02/28/21 23:37 Albuterol (Albut/Ipratrop 3mg/0.5mg Neb 3 Ml Vial) 3 ml NEB Q4R PRN PRN Reason: Shortness Of Breath Or Wheezing Stop: 02/28/21 23:37 Aspirin (Aspirin 81 Mg Ectab) 81 mg PO QAM [facility] Stop: 03/01/21 08:59 Last Admin: 02/08/21 08:36 Dose: 81 mg Documented by: Carvedilol (Carvedilol 6.25 Mg Tab) 6.25 mg PO BID [facility] Stop: 03/01/21 08:59 Last Admin: 02/08/21 08:36 Dose: 6.25 mg Documented by: Dextrose (Dextrose 50% 50 Ml Syringe) 25 - 50 ml IV UD PRN; Protocol PRN Reason: Hypoglycemia Protocol Stop: 02/28/21 23:44 Fluticasone Furoate (Fluticasone Furoate 100mcg 14 Puffs/Inhaler) 1 puffs INH DAILY [facility] Stop: 03/01/21 08:59 Last Admin: 02/08/21 08:36 Dose: 1 puffs Documented by: Glucagon (Glucagon For Inj 1 Mg Vial) 1 mg IM UD PRN; Protocol PRN Reason: Hypoglycemia Protocol Stop: 02/28/21 23:44 Glucose (Glucose 40% Gel 15 Gm Tube) 15 - 30 gm PO UD PRN; Protocol PRN Reason: Hypoglycemia Protocol Stop: 02/28/21 23:44 Glucose (Glucose 10 Tabs/Tube) 4 - 8 tabs PO UD PRN; Protocol PRN Reason: Hypoglycemia Protocol Stop: 02/28/21 23:44 Guaifenesin (Guaifenesin 600 Mg Tabcr) 600 mg PO Q12 [facility] Stop: 03/09/21 20:59 Last Admin: 02/08/21 08:36 Dose: 600 mg Documented by: Heparin Sodium (Porcine) (Heparin Sod 5,000 Unit/0.5 Ml Vial) 5,000 units SQ Q12 [facility] Stop: 03/01/21 08:59 Last Admin: 02/08/21 08:36 Dose: 5,000 units Documented by: Insulin Aspart (Insulin Aspart 100 Units/Ml 3 Ml Pen) 0 units SC ACHS [facility] Stop: 03/01/21 07:29 Last Admin: 02/08/21 17:00 Dose: 1 units Documented by: Labetalol HCl (Labetalol Hcl Iv 5 Mg/Ml 20ml) 5 mg IV Q6H PRN PRN Reason: hypertension Stop: 03/02/21 18:59 Last Admin: 02/01/21 00:57 Dose: 5 mg Documented by: Lidocaine (Lidocaine 5% 1 Patch) 1 patch TD QAM [facility] Stop: 03/02/21 01:59 Last Admin: 02/08/21 08:42 Dose: 1 patch Documented by: Losartan Potassium (Losartan Potassium 25 Mg Tab) 25 mg PO QAM [facility] Stop: 03/01/21 08:59 Last Admin: 02/08/21 08:37 Dose: 25 mg Documented by: Magnesium Hydroxide (Magnesium Hydroxide Susp 30 Ml Udc) 30 ml PO Q12H PRN PRN Reason: constipation Stop: 03/02/21 18:51 Last Admin: 02/04/21 18:12 Dose: 30 ml Documented by: Magnesium Oxide (Magnesium Oxide 400 Mg Tab) 400 mg PO QAM [facility] Stop: 03/01/21 14:44 Last Admin: 02/08/21 08:37 Dose: 400 mg Documented by: Methylnaltrexone [place] (Methylnaltrexone [place] 12 Mg/0.6 Ml Vial) 6 mg SQ DAILY [facility] Stop: 03/04/21 08:59 Last Admin: 02/08/21 08:42 Dose: 6 mg Documented by: Miscellaneous (Carbohydrates For Hypoglycemia ) 15 - 30 gm PO UD PRN PRN Reason: Hypoglycemia Treatment Stop: 02/28/21 23:44 Miscellaneous (Remove Lidoderm Patch) 1 ea N/A DAILY@2100 [facility] Stop: 03/02/21 13:59 Last Admin: 02/07/21 20:44 Dose: 1 ea Documented by: Nitroglycerin (Nitroglycerin Sl 0.4 Mg/Tab Tab) 0.4 mg SL UD PRN PRN Reason: Chest Pain Stop: 02/28/21 23:37 Last Admin: 02/07/21 21:30 Dose: 0.4 mg Documented by: Ondansetron HCl (Ondansetron Inj 2 Mg/Ml 2 Ml Vial) 4 mg IV Q6H PRN PRN Reason: Nausea Stop: 02/28/21 23:37 Last Admin: 02/02/21 21:08 Dose: 4 mg Documented by: Oxycodone HCl (Oxycodone Hcl Ir 5 Mg Tab (Immediate Release)) 5 - 10 mg PO QID PRN PRN Reason: Pain Stop: 02/14/21 01:22 Last Admin: 02/07/21 21:30 Dose: 10 mg Documented by: Polyethylene Glycol (Polyethylene (Miralax) 17 Gm Pack) 17 gm PO DAILY PRN PRN Reason: Constipation Stop: 02/28/21 23:37 Last Admin: 02/04/21 20:38 Dose: 17 gm Documented by: Senna/Docusate Sodium (Docusate Sodium/[place] 50/8.6mg Tab) 1 tab PO BID PRN PRN Reason: constipation Stop: 03/03/21 20:59 Tramadol HCl (Tramadol Hcl 50 Mg Tablet) 25 mg PO Q6H PRN PRN Reason: Pain Stop: 02/28/21 23:37 Last Admin: 02/06/21 14:20 Dose: 25 mg Documented by:
[2021-02-08] MEDS: oxyCODONE HCL IR 5 MG TAB (IMMEDIATE RELEASE) PO PRN (20:31)
[2021-02-09] MEDS: traMADol HCL 50 MG TABLET PO PRN (01:34)
[2021-02-09] MEDS: oxyCODONE HCL IR 5 MG TAB (IMMEDIATE RELEASE) PO PRN ×3 (03:19→17:56)
[2021-02-09] MEDS: FLUTICASONE FUROATE 100MCG 14 PUFFS/INHALER INH SCH (08:18)
[2021-02-09] MEDS: guaiFENesin 600 MG TABCR PO SCH ×2 (08:18→21:19)
[2021-02-09] MEDS: ASPIRIN 81 MG ECTAB PO SCH (08:18)
[2021-02-09] MEDS: carvediloL 6.25 MG TAB PO SCH ×2 (08:18→21:31)
[2021-02-09] MEDS: MAGNESIUM OXIDE 400 MG TAB PO SCH (08:19)
[2021-02-09] MEDS: LIDOCAINE 5% 1 PATCH TD SCH (08:19)
[2021-02-09] MEDS: LOSARTAN POTASSIUM 25 MG TAB PO SCH (08:19)
[2021-02-09] MEDS: HEPARIN SOD 5,000 UNIT/0.5 ML VIAL SQ SCH ×2 (08:19→21:20)
[2021-02-09] MEDS: INSULIN ASPART 100 UNITS/ML 3 ML PEN SC SCH ×4 (08:20→21:23)
[2021-02-09 08:47] LABS: Hematocrit (blood only) 39.2 % (42-52); Hemoglobin 13.5 g/dL (14.0-18.0); Mean Corpuscular Hemoglobin 28.5 pg (25-34); Mean Corpuscular Hgb Conc 34.4 g/dL (32-36); Mean Corpuscular Volume 82.9 fL (80-100); Mean Platelet Volume 10.6 fL (7.4-10.4); Platelet Count 142 K/uL (130-400); RDW Coefficient of Variation 13.8 % (11.5-14.5); RDW Standard Deviation 41.7 fL (36.4-46.3); Red Blood Count 4.73 M/uL (4.7-6.1); White Blood Count 10.03 K/uL (4.8-10.8)
[2021-02-09 09:18] LABS: BUN Creatinine Ratio 22.6 (10-20); Creatinine Clr Calc Pharmacy 44.3 ml/min; Est GFR (African American) 55.3 ml/min; Est GFR (Non-African American) 47.7 ml/min; Magnesium 2.5 mg/dl (1.8-2.4); Potassium 3.8 mmol/L (3.5-5.1)
[2021-02-09] MEDS: MAGNESIUM HYDROXIDE SUSP 30 ML UDC PO PRN (13:28)
--- NOTE | 2021-02-09 15:14 | Hospitalist Progress Note ---
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 He is being managed for the following. Compression fracture of lumbar vertebra Acute encephalopathy - resolved Patient performs independent ADLs per his daughter He is AO x3 at baseline Likely secondary to pneumonia and acute pain, also being contributed by pain medications. Admitting CT scan of lumbar spine demonstrate superior endplate fracture of L1 BLE neurovascular status [facility] Orthopedics consulted No evidence of canal compromise or neurologic deficit. Ordered TLSO brace to be worn once able to transition to chair and undergo PT/OT. Considering kyphoplasty, however pt is now not interested - discussed further with his family. PT OT onboard. Expect improvement with ongoing PT OT and pain management. (02/07), worked with PT, seems to be improving, also patient says that pain is much better now controlled. Pain better controlled Continue with prn pain medications. He is able to answer questions appropriately Plan to discharge to SNF Pneumonia - resolved Admitted CXR: Opacities at the right mid lower lung region suggestive of atelectasis versus infiltrative process WBC elevated at around 15,000. Down to normal. Initially on Zosyn and doxy, then switched to p.o., Abx stop Date Feb 04. Cont. incentive spirometer Currently on RA (02/09) Constipation - resolved Patient complained of ongoing abd. pain and at times feels like he needs to move bowels Likely secondary to pain which is exacerbated by pain medication Continued with Colace, MiraLAX, daily Relistor at reduced dose [due to his creatinine clearance] until he moves his bowel normally. 02/01 CTAP suggestive of developing SBO - surgery consulted, 02/02 follow-up KUB x-ray ruled out SBO. Both imaging suggestive of large amount of stool throughout the colon. Surgery recommended outpatient follow-up with surgery for hernia. Laurenytely ordered (02/06) -patient had multiple bowel movements Diabetes mellitus type 2 Metformin held, continue with sliding scale CKD stage 3 [place] creatinine 1.4 Continue monitor, try to avoid nephrotoxic agents #. Resume home medication for hypertension, COPD, hyperlipidemia, CAD 8/11 echo: EF 35 to 40% with moderately reduced LV systolic function, moderate aortic valve sclerosis, mild MR, mild aortic root dilatation. BP elevated previously, despite home medication likely secondary to pain. Added alfonzo HCTZ 02/01, will DC now as current BP 108/75 (02/07) - cont. to monitor DVT prophylaxis- heparin Dispo: PT recommending SNF upon discharge. Admission and Anticipated Discharge Date Admission Date: January 29, 2021 Subjective Patient seen in follow-up of L1 fracture, fall, confusion recent treatment for pneumonia Currently laying in bed, in no acute distress He is awake alert, and answering questions appropriately He denies any chest pain or shortness of breath Back pain seems controlled He is having bowel movements now I discussed with him possible back surgery and patient says that he would not want surgery I discussed this with his daughter over the phone, and she is okay to proceed with SNF I encouraged patient's daughter to talk to the patient and CM, CM aware. Review of Systems Review of Systems: All systems reviewed & are unremarkable except as noted in Subjective Physical Exam Physical Exam: Gen- AAO x 3, NAD Head- NCAT, EOMI, PERRLA, Anicteric Sclera Neck- Supple, No JVD Lungs- Clear to Auscultation Bilaterally, No Rales, No Rhonchi, No Wheezing Chest- +S1, +S2, No S3, No Murmurs Abdomen- Soft, Bowel Sounds Present, Non Tender, Non Distended Musculoskeletal- Full Range of Motion Bilaterally, No CVAT Extremities- No Edema, moves extremities Neuro- alert and oriented x3, answers questions appropriately, very hard of hear ing, speech fluent, moves extremities Psych-Normal Mood Results & Data Results & Data ([facility]) Vital Signs (Past 12 Hours) Vital Signs Temp Pulse Pulse Resp BP BP Pulse Ox 02/09/21 12:22 36.5 C 78 18 102/70 96 02/09/21 07:59 36.8 C 71 20 129/83 99 02/09/21 07:20 76 02/09/21 04:00 36.3 C L 83 18 142/91 H 97 Laboratory Results 02/09/21 02/09/21 02/09/21 Range/Units 11:47 07:56 07:56 WBC 10.03 (4.8-10.8) K/uL RBC 4.73 (4.7-6.1) M/uL Hgb 13.5 L (14.0-18.0) g/dL Hct 39.2 L (42-52) % MCV 82.9 (80-100) fL MCH 28.5 (25-34) pg MCHC 34.4 (32-36) g/dL RDW Std Deviation 41.7 (36.4-46.3) fL RDW Coeff of Ian 13.8 (11.5-14.5) % Plt Count 142 (130-400) K/uL MPV 10.6 H (7.4-10.4) fL Sodium 138 (136-145) mmol/L Potassium 3.8 (3.5-5.1) mmol/L Chloride 104 (98-107) mmol/L Carbon Dioxide 27 (21-32) mmol/L Anion Gap 6.0 (3-11) BUN 31 H (7-18) mg/dl Creatinine 1.37 (0.6-1.4) mg/dl Est Cr Clr Drug Dosing 44.3 ml/min Est GFR ( Amer) 55.3 ml/min Est GFR (Non-Af Amer) 47.7 ml/min BUN/Creatinine Ratio 22.6 H (10-20) Glucose 133 H (70-99) mg/dl POC Glucose 225 H (70-99) mg/dl Calcium 9.0 (8.5-10.1) mg/dl Phosphorus 4.0 (2.5-4.9) mg/dl Magnesium 2.5 H (1.8-2.4) mg/dl 02/09/21 02/08/21 02/08/21 Range/Units 07:54 20:29 16:23 WBC (4.8-10.8) K/uL RBC (4.7-6.1) M/uL Hgb (14.0-18.0) g/dL Hct (42-52) % MCV (80-100) fL MCH (25-34) pg MCHC (32-36) g/dL RDW Std Deviation (36.4-46.3) fL RDW Coeff of Ian (11.5-14.5) % Plt Count (130-400) K/uL MPV (7.4-10.4) fL Sodium (136-145) mmol/L Potassium (3.5-5.1) mmol/L Chloride (98-107) mmol/L Carbon Dioxide (21-32) mmol/L Anion Gap (3-11) BUN (7-18) mg/dl Creatinine (0.6-1.4) mg/dl Est Cr Clr Drug Dosing ml/min Est GFR ( Amer) ml/min Est GFR (Non-Af Amer) ml/min BUN/Creatinine Ratio (10-20) Glucose (70-99) mg/dl POC Glucose 167 H 136 H 137 H (70-99) mg/dl Calcium (8.5-10.1) mg/dl Phosphorus (2.5-4.9) mg/dl Magnesium (1.8-2.4) mg/dl Medications Administered Current Inpatient Medications Acetaminophen (Acetaminophen 325 Mg Tab) 650 mg PO Q4H PRN PRN Reason: Pain or Fever Stop: 02/28/21 23:37 Last Admin: 02/05/21 11:17 Dose: 650 mg Documented by: Albuterol (Albuterol Hfa 8 Gm Inhaler) 2 puffs INH Q4 PRN PRN Reason: Shortness Of Breath Or Wheezin Stop: 02/28/21 23:37 Albuterol (Albut/Ipratrop 3mg/0.5mg Neb 3 Ml Vial) 3 ml NEB Q4R PRN PRN Reason: Shortness Of Breath Or Wheezing Stop: 02/28/21 23:37 Aspirin (Aspirin 81 Mg Ectab) 81 mg PO QAM [facility] Stop: 03/01/21 08:59 Last Admin: 02/09/21 08:18 Dose: 81 mg Documented by: Carvedilol (Carvedilol 6.25 Mg Tab) 6.25 mg PO BID [facility] Stop: 03/01/21 08:59 Last Admin: 02/09/21 08:18 Dose: 6.25 mg Documented by: Dextrose (Dextrose 50% 50 Ml Syringe) 25 - 50 ml IV UD PRN; Protocol PRN Reason: Hypoglycemia Protocol Stop: 02/28/21 23:44 Fluticasone Furoate (Fluticasone Furoate 100mcg 14 Puffs/Inhaler) 1 puffs INH DAILY [facility] Stop: 03/01/21 08:59 Last Admin: 02/09/21 08:18 Dose: 1 puffs Documented by: Glucagon (Glucagon For Inj 1 Mg Vial) 1 mg IM UD PRN; Protocol PRN Reason: Hypoglycemia Protocol Stop: 02/28/21 23:44 Glucose (Glucose 40% Gel 15 Gm Tube) 15 - 30 gm PO UD PRN; Protocol PRN Reason: Hypoglycemia Protocol Stop: 02/28/21 23:44 Glucose (Glucose 10 Tabs/Tube) 4 - 8 tabs PO UD PRN; Protocol PRN Reason: Hypoglycemia Protocol Stop: 02/28/21 23:44 Guaifenesin (Guaifenesin 600 Mg Tabcr) 600 mg PO Q12 [facility] Stop: 03/09/21 20:59 Last Admin: 02/09/21 08:18 Dose: 600 mg Documented by: Heparin Sodium (Porcine) (Heparin Sod 5,000 Unit/0.5 Ml Vial) 5,000 units SQ Q12 [facility] Stop: 03/01/21 08:59 Last Admin: 02/09/21 08:19 Dose: 5,000 units Documented by: Insulin Aspart (Insulin Aspart 100 Units/Ml 3 Ml Pen) 0 units SC ACHS [facility] Stop: 03/01/21 07:29 Last Admin: 02/09/21 12:26 Dose: 4 units Documented by: Labetalol HCl (Labetalol Hcl Iv 5 Mg/Ml 20ml) 5 mg IV Q6H PRN PRN Reason: hypertension Stop: 03/02/21 18:59 Last Admin: 02/01/21 00:57 Dose: 5 mg Documented by: Lidocaine (Lidocaine 5% 1 Patch) 1 patch TD QAM [facility] Stop: 03/02/21 01:59 Last Admin: 02/09/21 08:19 Dose: 1 patch Documented by: Losartan Potassium (Losartan Potassium 25 Mg Tab) 25 mg PO QAM [facility] Stop: 03/01/21 08:59 Last Admin: 02/09/21 08:19 Dose: 25 mg Documented by: Magnesium Hydroxide (Magnesium Hydroxide Susp 30 Ml Udc) 30 ml PO Q12H PRN PRN Reason: constipation Stop: 03/02/21 18:51 Last Admin: 02/09/21 13:28 Dose: 30 ml Documented by: Magnesium Oxide (Magnesium Oxide 400 Mg Tab) 400 mg PO QAM [facility] Stop: 03/01/21 14:44 Last Admin: 02/09/21 08:19 Dose: 400 mg Documented by: Methylnaltrexone [place] (Methylnaltrexone [place] 12 Mg/0.6 Ml Vial) 6 mg SQ DAILY [facility] Stop: 03/04/21 08:59 Last Admin: 02/08/21 08:42 Dose: 6 mg Documented by: Miscellaneous (Carbohydrates For Hypoglycemia ) 15 - 30 gm PO UD PRN PRN Reason: Hypoglycemia Treatment Stop: 02/28/21 23:44 Miscellaneous (Remove Lidoderm Patch) 1 ea N/A DAILY@2100 [facility] Stop: 03/02/21 13:59 Last Admin: 02/08/21 20:33 Dose: 1 ea Documented by: Nitroglycerin (Nitroglycerin Sl 0.4 Mg/Tab Tab) 0.4 mg SL UD PRN PRN Reason: Chest Pain Stop: 02/28/21 23:37 Last Admin: 02/07/21 21:30 Dose: 0.4 mg Documented by: Ondansetron HCl (Ondansetron Inj 2 Mg/Ml 2 Ml Vial) 4 mg IV Q6H PRN PRN Reason: Nausea Stop: 02/28/21 23:37 Last Admin: 02/02/21 21:08 Dose: 4 mg Documented by: Oxycodone HCl (Oxycodone Hcl Ir 5 Mg Tab (Immediate Release)) 5 - 10 mg PO QID PRN PRN Reason: Pain Stop: 02/14/21 01:22 Last Admin: 02/09/21 12:30 Dose: 10 mg Documented by: Polyethylene Glycol (Polyethylene (Miralax) 17 Gm Pack) 17 gm PO DAILY PRN PRN Reason: Constipation Stop: 02/28/21 23:37 Last Admin: 02/04/21 20:38 Dose: 17 gm Documented by: Senna/Docusate Sodium (Docusate Sodium/Senna 50/8.6mg Tab) 1 tab PO BID PRN PRN Reason: constipation Stop: 03/03/21 20:59 Tramadol HCl (Tramadol Hcl 50 Mg Tablet) 25 mg PO Q6H PRN PRN Reason: Pain Stop: 02/28/21 23:37 Last Admin: 02/09/21 01:34 Dose: 25 mg Documented by:
[2021-02-09] MEDS ORDERED: POLYETHYLENE (MIRALAX) 17 GM PACK PO ONE (16:30)
[2021-02-09] MEDS ORDERED: SIMETHICONE 80 MG CHEW PO ONE (16:30)
[2021-02-09] MEDS: NITROGLYCERIN SL 0.4 MG/TAB TAB SL PRN (20:24)
[2021-02-09] MEDS ORDERED: MoRPHine SULFATE 2 MG/ML CARP IV STA (22:00)
[2021-02-09] MEDS ORDERED: ALUMINUM/MAGNESIUM/SIMETH (MAALOX MAX) 30 ML UDC PO STA (22:00)
[2021-02-10 08:47] LABS: BUN Creatinine Ratio 22.8 (10-20); Blood Urea Nitrogen 34 mg/dl (7-18); Calcium 9.4 mg/dl (8.5-10.1); Carbon Dioxide 30 mmol/L (21-32); Chloride 104 mmol/L (98-107); Creatinine Clr Calc Pharmacy 40.7 ml/min; Est GFR (African American) 49.9 ml/min; Est GFR (Non-African American) 43.1 ml/min; Glucose 134 mg/dl (70-99); Potassium 4.6 mmol/L (3.5-5.1); Sodium 139 mmol/L (136-145)
[2021-02-10 08:54] LABS: Troponin I < 0.015 ng/ml (0-0.045)
[2021-02-10] MEDS: INSULIN ASPART 100 UNITS/ML 3 ML PEN SC SCH ×4 (09:15→20:23)
[2021-02-10] MEDS: guaiFENesin 600 MG TABCR PO SCH ×2 (09:16→20:23)
[2021-02-10] MEDS: ASPIRIN 81 MG ECTAB PO SCH (09:16)
[2021-02-10] MEDS: carvediloL 6.25 MG TAB PO SCH ×2 (09:16→20:22)
[2021-02-10] MEDS: LOSARTAN POTASSIUM 25 MG TAB PO SCH (09:17)
[2021-02-10] MEDS: FLUTICASONE FUROATE 100MCG 14 PUFFS/INHALER INH SCH (09:17)
[2021-02-10 09:18] LABS: Hematocrit (blood only) 41.9 % (42-52); Hemoglobin 14.6 g/dL (14.0-18.0); Mean Corpuscular Hemoglobin 29.3 pg (25-34); Mean Corpuscular Hgb Conc 34.8 g/dL (32-36); Mean Corpuscular Volume 84.1 fL (80-100); Mean Platelet Volume 10.3 fL (7.4-10.4); Platelet Count 151 K/uL (130-400); RDW Coefficient of Variation 14.2 % (11.5-14.5); Red Blood Count 4.98 M/uL (4.7-6.1); White Blood Count 11.43 K/uL (4.8-10.8)
[2021-02-10] MEDS: LIDOCAINE 5% 1 PATCH TD SCH (09:18)
[2021-02-10] MEDS: HEPARIN SOD 5,000 UNIT/0.5 ML VIAL SQ SCH ×2 (09:18→20:23)
[2021-02-10] MEDS: oxyCODONE HCL IR 5 MG TAB (IMMEDIATE RELEASE) PO PRN ×2 (10:17→17:08)
[2021-02-10] MEDS: MAGNESIUM OXIDE 400 MG TAB PO SCH (10:18)
[2021-02-10] MEDS: POLYETHYLENE (MIRALAX) 17 GM PACK PO SCH (10:19)
--- NOTE | 2021-02-10 14:57 | Hospitalist Progress Note ---
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 He is being managed for the following. Compression fracture of lumbar vertebra Acute encephalopathy - resolved Patient performs independent ADLs per his daughter He is AO x3 at baseline Likely secondary to pneumonia and acute pain, also being contributed by pain medications. Admitting CT scan of lumbar spine demonstrate superior endplate fracture of L1 BLE neurovascular status [facility] Orthopedics consulted No evidence of canal compromise or neurologic deficit. Ordered TLSO brace to be worn once able to transition to chair and undergo PT/OT. Considering kyphoplasty, however pt is now not interested - discussed further with his family. PT OT onboard. Expect improvement with ongoing PT OT and pain management. (02/07), worked with PT, seems to be improving, also patient says that pain is much better now controlled. Pain better controlled Continue with prn pain medications. He is able to answer questions appropriately Plan to discharge to SNF Pneumonia - resolved Admitted CXR: Opacities at the right mid lower lung region suggestive of atelectasis versus infiltrative process WBC elevated at around 15,000. Down to normal. Initially on Zosyn and doxy, then switched to p.o., Abx stop Date Feb 04. Cont. incentive spirometer Currently on RA (02/09) Constipation - resolved Patient complained of ongoing abd. pain and at times feels like he needs to move bowels Likely secondary to pain which is exacerbated by pain medication Continued with Colace, MiraLAX, daily Relistor at reduced dose [due to his creatinine clearance] until he moves his bowel normally. 02/01 CTAP suggestive of developing SBO - surgery consulted, 02/02 follow-up [facility] x-ray ruled out SBO. Both imaging suggestive of large amount of stool throughout the colon. Surgery recommended outpatient follow-up with surgery for hernia. Waqas ordered (02/06) -patient had multiple bowel movements Diabetes mellitus type 2 Metformin held, continue with sliding scale CKD stage 3 Baseline creatinine 1.4 Continue monitor, try to avoid nephrotoxic agents #. Resume home medication for hypertension, COPD, hyperlipidemia, CAD 01/30 echo: EF 35 to 40% with moderately reduced LV systolic function, moderate aortic valve sclerosis, mild MR, mild aortic root dilatation. BP elevated previously, despite home medication likely secondary to pain. Added alfonzo HCTZ 02/01, discontinued on 02/07 as BP 108/75 (02/07) - cont. to monitor 02/10 BP at goal DVT prophylaxis- heparin Dispo: PT recommending SNF upon discharge. Admission and Anticipated Discharge Date Admission Date: January 29, 2021 Subjective Patient seen in follow-up of L1 fracture, fall, confusion recent treatment for pneumonia Currently sitting up in chair, in no acute distress He is awake alert, and answering questions appropriately He denies any chest pain or shortness of breath Back pain seems controlled He is having bowel movements Pt reports feeling much better overall, reports he walked to the bathroom today. Review of Systems Review of Systems: All systems reviewed & are unremarkable except as noted in Subjective Physical Exam Physical Exam: Gen- AAO x 3, NAD Head- NCAT, EOMI, PERRLA, Anicteric Sclera Neck- Supple, No JVD Lungs- Clear to Auscultation Bilaterally, No Rales, No Rhonchi, No Wheezing Chest- +S1, +S2, No S3, No Murmurs Abdomen- Soft, Bowel Sounds Present, Non Tender, Non Distended Musculoskeletal- Full Range of Motion Bilaterally, No CVAT Extremities- No Edema, moves extremities Neuro- alert and oriented x3, answers questions appropriately, very hard of hearing, speech fluent, moves extremities Psych-Normal Mood Results & Data Results & Data ([facility]) Vital Signs (Past 12 Hours) Vital Signs Temp Pulse Pulse Resp BP BP Pulse Ox 02/10/21 11:34 36.6 C 66 18 101/68 100 02/10/21 07:58 36.6 C 95 H 20 157/91 H 98 02/10/21 07:25 78 02/10/21 04:00 36.4 C L 67 18 153/97 H 97 Laboratory Results 02/10/21 02/10/21 02/10/21 Range/Units 11:24 08:59 07:51 WBC 11.43 H Cancelled RBC 4.98 Cancelled Hgb 14.6 Cancelled Hct 41.9 L Cancelled MCV 84.1 Cancelled MCH 29.3 Cancelled MCHC 34.8 Cancelled RDW Std Deviation 43.0 Cancelled RDW Coeff of Ian 14.2 Cancelled Plt Count 151 Cancelled MPV 10.3 Cancelled Absolute Nucleated RBC Cancelled Nucleated RBC % (auto) Cancelled Platelet Estimate Cancelled Sodium (136-145) mmol/L Potassium (3.5-5.1) mmol/L Chloride (98-107) mmol/L Carbon Dioxide (21-32) mmol/L Anion Gap (3-11) BUN (7-18) mg/dl Creatinine (0.6-1.4) mg/dl Est Cr Clr Drug Dosing ml/min Est GFR ( Amer) ml/min Est GFR (Non-Af Amer) ml/min BUN/Creatinine Ratio (10-20) Glucose (70-99) mg/dl POC Glucose 225 H (70-99) mg/dl Calcium (8.5-10.1) mg/dl Troponin I (0-0.045) ng/ml 02/10/21 02/10/21 02/09/21 Range/Units 07:51 07:40 22:35 WBC RBC Hgb Hct MCV MCH MCHC RDW Std Deviation RDW Coeff of Ian Plt Count MPV Absolute Nucleated RBC Nucleated RBC % (auto) Platelet Estimate Sodium 139 (136-145) mmol/L Potassium 4.6 D (3.5-5.1) mmol/L Chloride 104 (98-107) mmol/L Carbon Dioxide 30 (21-32) mmol/L Anion Gap 5.0 (3-11) BUN 34 H (7-18) mg/dl Creatinine 1.49 H (0.6-1.4) mg/dl Est Cr Clr Drug Dosing 40.7 ml/min Est GFR ( Amer) 49.9 ml/min Est GFR (Non-Af Amer) 43.1 ml/min BUN/Creatinine Ratio 22.8 H (10-20) Glucose 134 H (70-99) mg/dl POC Glucose 137 H (70-99) mg/dl Calcium 9.4 (8.5-10.1) mg/dl Troponin I < 0.015 < 0.015 (0-0.045) ng/ml 02/09/21 02/09/21 Range/Units 20:27 16:45 WBC RBC Hgb Hct MCV MCH MCHC RDW Std Deviation RDW Coeff of Ian Plt Count MPV Absolute Nucleated RBC Nucleated RBC % (auto) Platelet Estimate Sodium (136-145) mmol/L Potassium (3.5-5.1) mmol/L Chloride (98-107) mmol/L Carbon Dioxide (21-32) mmol/L Anion Gap (3-11) BUN (7-18) mg/dl Creatinine (0.6-1.4) mg/dl Est Cr Clr Drug Dosing ml/min Est GFR ( Amer) ml/min Est GFR (Non-Af Amer) ml/min BUN/Creatinine Ratio (10-20) Glucose (70-99) mg/dl POC Glucose 171 H 166 H (70-99) mg/dl Calcium (8.5-10.1) mg/dl Troponin I (0-0.045) ng/ml Medications Administered Current Inpatient Medications Acetaminophen (Acetaminophen 325 Mg Tab) 650 mg PO Q4H PRN PRN Reason: Pain or Fever Stop: 02/28/21 23:37 Last Admin: 02/05/21 11:17 Dose: 650 mg Documented by: Albuterol (Albuterol Hfa 8 Gm Inhaler) 2 puffs INH Q4 PRN PRN Reason: Shortness Of Breath Or Wheezin Stop: 02/28/21 23:37 Albuterol (Albut/Ipratrop 3mg/0.5mg Neb 3 Ml Vial) 3 ml NEB Q4R PRN PRN Reason: Shortness Of Breath Or Wheezing Stop: 02/28/21 23:37 Aspirin (Aspirin 81 Mg Ectab) 81 mg PO QAM [facility] Stop: 03/01/21 08:59 Last Admin: 02/10/21 09:16 Dose: 81 mg Documented by: Carvedilol (Carvedilol 6.25 Mg Tab) 6.25 mg PO BID [facility] Stop: 03/01/21 08:59 Last Admin: 02/10/21 09:16 Dose: 6.25 mg Documented by: Dextrose (Dextrose 50% 50 Ml Syringe) 25 - 50 ml IV UD PRN; Protocol PRN Reason: Hypoglycemia Protocol Stop: 02/28/21 23:44 Fluticasone Furoate (Fluticasone Furoate 100mcg 14 Puffs/Inhaler) 1 puffs INH DAILY [facility] Stop: 03/01/21 08:59 Last Admin: 02/10/21 09:17 Dose: 1 puffs Documented by: Glucagon (Glucagon For Inj 1 Mg Vial) 1 mg IM UD PRN; Protocol PRN Reason: Hypoglycemia Protocol Stop: 02/28/21 23:44 Glucose (Glucose 40% Gel 15 Gm Tube) 15 - 30 gm PO UD PRN; Protocol PRN Reason: Hypoglycemia Protocol Stop: 02/28/21 23:44 Glucose (Glucose 10 Tabs/Tube) 4 - 8 tabs PO UD PRN; Protocol PRN Reason: Hypoglycemia Protocol Stop: 02/28/21 23:44 Guaifenesin (Guaifenesin 600 Mg Tabcr) 600 mg PO Q12 [facility] Stop: 03/09/21 20:59 Last Admin: 02/10/21 09:16 Dose: 600 mg Documented by: Heparin Sodium (Porcine) (Heparin Sod 5,000 Unit/0.5 Ml Vial) 5,000 units SQ Q12 [facility] Stop: 03/01/21 08:59 Last Admin: 02/10/21 09:18 Dose: 5,000 units Documented by: Insulin Aspart (Insulin Aspart 100 Units/Ml 3 Ml Pen) 0 units SC ACHS [facility] Stop: 03/01/21 07:29 Last Admin: 02/10/21 12:18 Dose: 4 units Documented by: Labetalol HCl (Labetalol Hcl Iv 5 Mg/Ml 20ml) 5 mg IV Q6H PRN PRN Reason: hypertension Stop: 03/02/21 18:59 Last Admin: 02/01/21 00:57 Dose: 5 mg Documented by: Lidocaine (Lidocaine 5% 1 Patch) 1 patch TD QAM [facility] Stop: 03/02/21 01:59 Last Admin: 02/10/21 09:18 Dose: 1 patch Documented by: Losartan Potassium (Losartan Potassium 25 Mg Tab) 25 mg PO QAM [facility] Stop: 03/01/21 08:59 Last Admin: 02/10/21 09:17 Dose: 25 mg Documented by: Magnesium Hydroxide (Magnesium Hydroxide Susp 30 Ml Udc) 30 ml PO Q12H PRN PRN Reason: constipation Stop: 03/02/21 18:51 Last Admin: 02/09/21 13:28 Dose: 30 ml Documented by: Magnesium Oxide (Magnesium Oxide 400 Mg Tab) 400 mg PO QAM [facility] Stop: 03/01/21 14:44 Last Admin: 02/10/21 10:18 Dose: 400 mg Documented by: Methylnaltrexone [place] (Methylnaltrexone [place] 12 Mg/0.6 Ml Vial) 6 mg SQ DAILY [facility] Stop: 03/04/21 08:59 Last Admin: 02/08/21 08:42 Dose: 6 mg Documented by: Miscellaneous (Carbohydrates For Hypoglycemia ) 15 - 30 gm PO UD PRN PRN Reason: Hypoglycemia Treatment Stop: 02/28/21 23:44 Miscellaneous (Remove Lidoderm Patch) 1 ea N/A DAILY@2100 [facility] Stop: 03/02/21 13:59 Last Admin: 02/09/21 21:21 Dose: 1 ea Documented by: Nitroglycerin (Nitroglycerin Sl 0.4 Mg/Tab Tab) 0.4 mg SL UD PRN PRN Reason: Chest Pain Stop: 02/28/21 23:37 Last Admin: 02/09/21 20:24 Dose: 0.4 mg Documented by: Ondansetron HCl (Ondansetron Inj 2 Mg/Ml 2 Ml Vial) 4 mg IV Q6H PRN PRN Reason: Nausea Stop: 02/28/21 23:37 Last Admin: 02/02/21 21:08 Dose: 4 mg Documented by: Oxycodone HCl (Oxycodone Hcl Ir 5 Mg Tab (Immediate Release)) 5 - 10 mg PO QID PRN PRN Reason: Pain Stop: 02/14/21 01:22 Last Admin: 02/10/21 10:17 Dose: 10 mg Documented by: Polyethylene Glycol (Polyethylene (Miralax) 17 Gm Pack) 17 gm PO DAILY PRN PRN Reason: Constipation Stop: 02/28/21 23:37 Last Admin: 02/04/21 20:38 Dose: 17 gm Documented by: Polyethylene Glycol (Polyethylene (Miralax) 17 Gm Pack) 17 gm PO DAILY [facility] Stop: 03/12/21 08:59 Last Admin: 02/10/21 10:19 Dose: 17 gm Documented by: Senna/Docusate Sodium (Docusate Sodium/Senna 50/8.6mg Tab) 1 tab PO BID PRN PRN Reason: constipation Stop: 03/03/21 20:59 Tramadol HCl (Tramadol Hcl 50 Mg Tablet) 25 mg PO Q6H PRN PRN Reason: Pain Stop: 02/28/21 23:37 Last Admin: 02/09/21 01:34 Dose: 25 mg Documented by:
[2021-02-10] MEDS: ACETAMINOPHEN 325 MG TAB PO PRN (20:24)
[2021-02-11] MEDS: ACETAMINOPHEN 325 MG TAB PO PRN ×2 (06:19→21:09)
--- NOTE | 2021-02-11 09:20 | Electrocardiogram Report ---
Test Reason : Blood Pressure : / mmHG Vent. Rate : 078 BPM Atrial Rate : 078 BPM P-R Int : 196 ms QRS Dur : 114 ms QT Int : 402 ms P-R-T Axes : 057 078 105 degrees QTc Int : 458 ms Normal sinus rhythm Possible Left atrial enlargement Borderline ECG When compared with ECG of 29-JAN-2021 16:32, No significant change was found Confirmed by Ruben Austin ([id number]) on 02/11/2021 9:20:33 AM Referred By: REFERRED SELF Confirmed By:Ruben Austin
[2021-02-11] MEDS: MAGNESIUM OXIDE 400 MG TAB PO SCH (09:25)
[2021-02-11] MEDS: LIDOCAINE 5% 1 PATCH TD SCH (09:25)
[2021-02-11] MEDS: LOSARTAN POTASSIUM 25 MG TAB PO SCH (09:25)
[2021-02-11] MEDS: HEPARIN SOD 5,000 UNIT/0.5 ML VIAL SQ SCH ×2 (09:27→20:23)
[2021-02-11] MEDS: ASPIRIN 81 MG ECTAB PO SCH (09:28)
[2021-02-11] MEDS: carvediloL 6.25 MG TAB PO SCH ×2 (09:28→20:22)
[2021-02-11] MEDS: guaiFENesin 600 MG TABCR PO SCH ×2 (09:28→20:22)
[2021-02-11] MEDS: POLYETHYLENE (MIRALAX) 17 GM PACK PO SCH ×2 (09:29→13:02)
[2021-02-11] MEDS: INSULIN ASPART 100 UNITS/ML 3 ML PEN SC SCH ×4 (09:31→20:26)
[2021-02-11] MEDS: FLUTICASONE FUROATE 100MCG 14 PUFFS/INHALER INH SCH (10:50)
[2021-02-11] MEDS: oxyCODONE HCL IR 5 MG TAB (IMMEDIATE RELEASE) PO PRN (13:01)
--- NOTE | 2021-02-11 14:18 | Hospitalist Progress Note ---
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 He is being managed for the following. Compression fracture of lumbar vertebra Acute encephalopathy - resolved Patient performs independent ADLs per his daughter He is AO x3 at baseline Likely secondary to pneumonia and acute pain, also being contributed by pain medications. Admitting CT scan of lumbar spine demonstrate superior endplate fracture of L1 BLE neurovascular status [facility]NL Orthopedics consulted No evidence of canal compromise or neurologic deficit. Ordered TLSO brace to be worn once able to transition to chair and undergo PT/OT. Considering kyphoplasty, however pt is now not interested - discussed further with his family. PT OT onboard. Expect improvement with ongoing PT OT and pain management. (02/07), worked with PT, seems to be improving, also patient says that pain is much better now controlled. Pain better controlled Continue with prn pain medications. He is able to answer questions appropriately Plan to discharge to SNF Pneumonia - resolved Admitted CXR: Opacities at the right mid lower lung region suggestive of atelectasis versus infiltrative process WBC elevated at around 15,000. Down to normal. Initially on Zosyn and doxy, then switched to p.o., Abx stop Date Feb 04. Cont. incentive spirometer Currently on RA (02/09) Constipation - resolved Patient complained of ongoing abd. pain and at times feels like he needs to move bowels Likely secondary to pain which is exacerbated by pain medication Continued with Colace, MiraLAX, daily Relistor at reduced dose [due to his creatinine clearance] until he moves his bowel normally. 02/01 CTAP suggestive of developing SBO - surgery consulted, 02/02 follow-up KUB x-ray ruled out SBO. Both imaging suggestive of large amount of stool throughout the colon. Surgery recommended outpatient follow-up with surgery for hernia. Waqas ordered (02/06) -patient had multiple bowel movements Diabetes mellitus type 2 Metformin held, continue with sliding scale CKD stage 3 Baseline creatinine 1.4 Continue monitor, try to avoid nephrotoxic agents #. Resume home medication for hypertension, COPD, hyperlipidemia, CAD 01/30 echo: EF 35 to 40% with moderately reduced LV systolic function, moderate aortic valve sclerosis, mild MR, mild aortic root dilatation. BP elevated previously, despite home medication likely secondary to pain. Added alfonzo HCTZ 02/01, discontinued on 02/07 as BP 108/75 (02/07) - cont. to monitor 02/10 BP at goal DVT prophylaxis- heparin Dispo: PT recommending SNF upon discharge. Admission and Anticipated Discharge Date Admission Date: January 29, 2021 Subjective Patient seen in follow-up of L1 fracture, fall, confusion recent treatment for pneumonia Currently laying in bed, in no acute distress He is awake alert, and answering questions appropriately He denies any chest pain or shortness of breath Back pain seems controlled He is having bowel movements Pt reports feeling much better overall Review of Systems Review of Systems: All systems reviewed & are unremarkable except as noted in Subjective Physical Exam Physical Exam: Gen- AAO x 3, NAD Head- NCAT, EOMI, PERRLA, Anicteric Sclera Neck- Supple, No JVD Lungs- Clear to Auscultation Bilaterally, No Rales, No Rhonchi, No Wheezing Chest- +S1, +S2, No S3, No Murmurs Abdomen- Soft, Bowel Sounds Present, Non Tender, Non Distended Musculoskeletal- Full Range of Motion Bilaterally, No CVAT Extremities- No Edema, moves extremities Neuro- alert and oriented x3, answers questions appropriately, very hard of hea ring, speech fluent, moves extremities Psych-Normal Mood Results & Data Results & Data ([facility]) Vital Signs (Past 12 Hours) Vital Signs Temp Pulse Pulse Resp BP BP Pulse Ox 02/11/21 12:06 36.4 C L 92 H 20 95/64 L 99 02/11/21 10:29 36.3 C L 90 18 116/79 93 02/11/21 07:26 36.4 C L 76 18 150/89 H 95 02/11/21 07:00 103 H 02/11/21 02:58 124/89 02/11/21 02:28 36.5 C 86 18 155/96 H 94 Medications Administered Current Inpatient Medications Acetaminophen (Acetaminophen 325 Mg Tab) 650 mg PO Q4H PRN PRN Reason: Pain or Fever Stop: 02/28/21 23:37 Last Admin: 02/11/21 06:19 Dose: 650 mg Documented by: Albuterol (Albuterol Hfa 8 Gm Inhaler) 2 puffs INH Q4 PRN PRN Reason: Shortness Of Breath Or Wheezin Stop: 02/28/21 23:37 Albuterol (Albut/Ipratrop 3mg/0.5mg Neb 3 Ml Vial) 3 ml NEB Q4R PRN PRN Reason: Shortness Of Breath Or Wheezing Stop: 02/28/21 23:37 Aspirin (Aspirin 81 Mg Ectab) 81 mg PO QAM [facility] Stop: 03/01/21 08:59 Last Admin: 02/11/21 09:28 Dose: 81 mg Documented by: Carvedilol (Carvedilol 6.25 Mg Tab) 6.25 mg PO BID [facility] Stop: 03/01/21 08:59 Last Admin: 02/11/21 09:28 Dose: 6.25 mg Documented by: Dextrose (Dextrose 50% 50 Ml Syringe) 25 - 50 ml IV UD PRN; Protocol PRN Reason: Hypoglycemia Protocol Stop: 02/28/21 23:44 Fluticasone Furoate (Fluticasone Furoate 100mcg 14 Puffs/Inhaler) 1 puffs INH DAILY [facility] Stop: 03/01/21 08:59 Last Admin: 02/11/21 10:50 Dose: 1 puffs Documented by: Glucagon (Glucagon For Inj 1 Mg Vial) 1 mg IM UD PRN; Protocol PRN Reason: Hypoglycemia Protocol Stop: 02/28/21 23:44 Glucose (Glucose 40% Gel 15 Gm Tube) 15 - 30 gm PO UD PRN; Protocol PRN Reason: Hypoglycemia Protocol Stop: 02/28/21 23:44 Glucose (Glucose 10 Tabs/Tube) 4 - 8 tabs PO UD PRN; Protocol PRN Reason: Hypoglycemia Protocol Stop: 02/28/21 23:44 Guaifenesin (Guaifenesin 600 Mg Tabcr) 600 mg PO Q12 [facility] Stop: 03/09/21 20:59 Last Admin: 02/11/21 09:28 Dose: 600 mg Documented by: Heparin Sodium (Porcine) (Heparin Sod 5,000 Unit/0.5 Ml Vial) 5,000 units SQ Q12 [facility] Stop: 03/01/21 08:59 Last Admin: 02/11/21 09:27 Dose: 5,000 units Documented by: Insulin Aspart (Insulin Aspart 100 Units/Ml 3 Ml Pen) 0 units SC ACHS [facility] Stop: 03/01/21 07:29 Last Admin: 02/11/21 12:55 Dose: 1 units Documented by: Labetalol HCl (Labetalol Hcl Iv 5 Mg/Ml 20ml) 5 mg IV Q6H PRN PRN Reason: hypertension Stop: 03/02/21 18:59 Last Admin: 02/01/21 00:57 Dose: 5 mg Documented by: Lidocaine (Lidocaine 5% 1 Patch) 1 patch TD QAM [facility] Stop: 03/02/21 01:59 Last Admin: 02/11/21 09:25 Dose: 1 patch Documented by: Losartan Potassium (Losartan Potassium 25 Mg Tab) 25 mg PO QAM [facility] Stop: 03/01/21 08:59 Last Admin: 02/11/21 09:25 Dose: 25 mg Documented by: Magnesium Hydroxide (Magnesium Hydroxide Susp 30 Ml Udc) 30 ml PO Q12H PRN PRN Reason: constipation Stop: 03/02/21 18:51 Last Admin: 02/09/21 13:28 Dose: 30 ml Documented by: Magnesium Oxide (Magnesium Oxide 400 Mg Tab) [facility] [place]: 03/01/21 14:44 Last Admin: 02/11/21 09:25 Dose: 400 mg Documented by: Methylnaltrexone [place] (Methylnaltrexone [place] 12 Mg/0.6 Ml Vial) 6 mg SQ DAILY [facility] Stop: 03/04/21 08:59 Last Admin: 02/08/21 08:42 Dose: 6 mg Documented by: Miscellaneous (Carbohydrates For Hypoglycemia ) 15 - 30 gm PO UD PRN PRN Reason: Hypoglycemia Treatment Stop: 02/28/21 23:44 Miscellaneous (Remove Lidoderm Patch) 1 ea N/A DAILY@2100 [facility] Stop: 03/02/21 13:59 Last Admin: 02/10/21 20:23 Dose: 1 ea Documented by: Nitroglycerin (Nitroglycerin Sl 0.4 Mg/Tab Tab) 0.4 mg SL UD PRN PRN Reason: Chest Pain Stop: 02/28/21 23:37 Last Admin: 02/09/21 20:24 Dose: 0.4 mg Documented by: Ondansetron HCl (Ondansetron Inj 2 Mg/Ml 2 Ml Vial) 4 mg IV Q6H PRN PRN Reason: Nausea Stop: 02/28/21 23:37 Last Admin: 02/02/21 21:08 Dose: 4 mg Documented by: Oxycodone HCl (Oxycodone Hcl Ir 5 Mg Tab (Immediate Release)) 5 - 10 mg PO QID PRN PRN Reason: Pain Stop: 02/14/21 01:22 Last Admin: 02/11/21 13:01 Dose: 10 mg Documented by: Polyethylene Glycol (Polyethylene (Miralax) 17 Gm Pack) 17 gm PO DAILY PRN PRN Reason: Constipation Stop: 02/28/21 23:37 Last Admin: 02/04/21 20:38 Dose: 17 gm Documented by: Polyethylene Glycol (Polyethylene (Miralax) 17 Gm Pack) 17 gm PO DAILY [facility] Stop: 03/12/21 08:59 Last Admin: 02/11/21 13:02 Dose: 17 gm Documented by: Senna/Docusate Sodium (Docusate Sodium/Senna 50/8.6mg Tab) 1 tab PO BID PRN PRN Reason: constipation Stop: 03/03/21 20:59 Tramadol HCl (Tramadol Hcl 50 Mg Tablet) 25 mg PO Q6H PRN PRN Reason: Pain Stop: 02/28/21 23:37 Last Admin: 02/09/21 01:34 Dose: 25 mg Documented by:
[2021-02-12] MEDS: oxyCODONE HCL IR 5 MG TAB (IMMEDIATE RELEASE) PO PRN (01:35)
[2021-02-12] MEDS: INSULIN ASPART 100 UNITS/ML 3 ML PEN SC SCH ×2 (09:27→12:44)
[2021-02-12] MEDS: ASPIRIN 81 MG ECTAB PO SCH (09:59)
[2021-02-12] MEDS: MAGNESIUM OXIDE 400 MG TAB PO SCH (09:59)
[2021-02-12] MEDS: LIDOCAINE 5% 1 PATCH TD SCH (09:59)
[2021-02-12] MEDS: LOSARTAN POTASSIUM 25 MG TAB PO SCH (09:59)
[2021-02-12] MEDS: HEPARIN SOD 5,000 UNIT/0.5 ML VIAL SQ SCH (09:59)
[2021-02-12] MEDS: FLUTICASONE FUROATE 100MCG 14 PUFFS/INHALER INH SCH (09:59)
[2021-02-12] MEDS: POLYETHYLENE (MIRALAX) 17 GM PACK PO SCH (10:00)
[2021-02-12] MEDS: guaiFENesin 600 MG TABCR PO SCH (10:00)
[2021-02-12] MEDS: carvediloL 6.25 MG TAB PO SCH (10:00)
--- NOTE | 2021-02-12 10:26 | Hospitalist Progress Note ---
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 He is being managed for the following. Compression fracture of lumbar vertebra Acute encephalopathy - resolved Patient performs independent ADLs per his daughter He is AO x3 at baseline Likely secondary to pneumonia and acute pain, also being contributed by pain medications. Admitting CT scan of lumbar spine demonstrate superior endplate fracture of L1 BLE neurovascular status [facility] Orthopedics consulted No evidence of canal compromise or neurologic deficit. Ordered TLSO brace to be worn once able to transition to chair and undergo PT/OT. Considering kyphoplasty, however pt is now not interested - discussed further with his family. PT OT onboard. Expect improvement with ongoing PT OT and pain management. (02/07), worked with PT, seems to be improving, also patient says that pain is much better now controlled. Pain better controlled Continue with prn pain medications. He is able to answer questions appropriately Plan to discharge to SNF Pneumonia - resolved Admitted CXR: Opacities at the right mid lower lung region suggestive of atelectasis versus infiltrative process WBC elevated at around 15,000. Down to normal. Initially on Zosyn and doxy, then switched to p.o., Abx stop Date Feb 04. Cont. incentive spirometer Currently on RA (02/09) Constipation - resolved Patient complained of ongoing abd. pain and at times feels like he needs to move bowels Likely secondary to pain which is exacerbated by pain medication Continued with Colace, MiraLAX, daily Relistor at reduced dose [due to his creatinine clearance] until he moves his bowel normally. 02/01 CTAP suggestive of developing SBO - surgery consulted, 02/02 follow-up [facility] x-ray ruled out SBO. Both imaging suggestive of large amount of stool throughout the colon. Surgery recommended outpatient follow-up with surgery for hernia. Waqas ordered (02/06) -patient had multiple bowel movements Diabetes mellitus type 2 Metformin held, continue with sliding scale CKD stage 3 Baseline creatinine 1.4 Continue monitor, try to avoid nephrotoxic agents #. Resume home medication for hypertension, COPD, hyperlipidemia, CAD 01/30 echo: EF 35 to 40% with moderately reduced LV systolic function, moderate aortic valve sclerosis, mild MR, mild aortic root dilatation. BP elevated previously, despite home medication likely secondary to pain. Added alfonzo HCTZ 02/01, discontinued on 02/07 as BP 108/75 (02/07) - cont. to monitor 02/10 BP at goal 02/12 BP at goal, current BP 134/80 DVT prophylaxis- heparin Dispo: PT recommending SNF upon discharge. Admission and Anticipated Discharge Date Admission Date: January 29, 2021 Subjective Patient seen in follow-up of L1 fracture, fall, confusion recent treatment for pneumonia Currently sitting up in a chair in no acute distress, brace on He is awake alert, and answering questions appropriately He denies any chest pain or shortness of breath or abdominal pain Back pain seems controlled He is having bowel movements Pt reports feeling much better overall Review of Systems Review of Systems: All systems reviewed & are unremarkable except as noted in Subjective Physical Exam Physical Exam: Gen- AAO x 3, NAD Head- NCAT, EOMI, PERRLA, Anicteric Sclera Neck- Supple, No JVD Lungs- Clear to Auscultation Bilaterally, No Rales, No Rhonchi, No Wheezing Chest- +S1, +S2, No S3, No Murmurs Abdomen- Soft, Bowel Sounds Present, Non Tender, Non Distended Musculoskeletal- Full Range of Motion Bilaterally, No CVAT Extremities- No Edema, moves extremities Neuro- alert and oriented x3, answers questions appropriately, very hard of hearing, speech fluent, moves extremities Psych-Normal Mood Results & Data Results & Data ([facility]) Vital Signs (Past 12 Hours) Vital Signs Temp Pulse Pulse Resp BP BP Pulse Ox 02/12/21 07:59 36.4 C L 78 18 134/80 96 02/12/21 04:00 84 18 148/94 H 02/11/21 23:24 84 02/11/21 22:52 36.6 C 82 18 102/67 96 Laboratory Results 02/12/21 02/11/21 02/11/21 Range/Units 07:39 20:21 16:26 POC Glucose 118 H 128 H 159 H (70-99) mg/dl 02/11/21 Range/Units 11:40 POC Glucose 154 H (70-99) mg/dl Medications Administered Current Inpatient Medications Acetaminophen (Acetaminophen 325 Mg Tab) 650 mg PO Q4H PRN PRN Reason: Pain or Fever Stop: 02/28/21 23:37 Last Admin: 02/11/21 21:09 Dose: 650 mg Documented by: Albuterol (Albuterol Hfa 8 Gm Inhaler) 2 puffs INH Q4 PRN PRN Reason: Shortness Of Breath Or Wheezin Stop: 02/28/21 23:37 Albuterol (Albut/Ipratrop 3mg/0.5mg Neb 3 Ml Vial) 3 ml NEB Q4R PRN PRN Reason: Shortness Of Breath Or Wheezing Stop: 02/28/21 23:37 Aspirin (Aspirin 81 Mg Ectab) 81 mg PO QAM [facility] Stop: 03/01/21 08:59 Last Admin: 02/12/21 09:59 Dose: 81 mg Documented by: Carvedilol (Carvedilol 6.25 Mg Tab) 6.25 mg PO BID [facility] Stop: 03/01/21 08:59 Last Admin: 02/12/21 10:00 Dose: 6.25 mg Documented by: Dextrose (Dextrose 50% 50 Ml Syringe) 25 - 50 ml IV UD PRN; Protocol PRN Reason: Hypoglycemia Protocol Stop: 02/28/21 23:44 Fluticasone Furoate (Fluticasone Furoate 100mcg 14 Puffs/Inhaler) 1 puffs INH DAILY [facility] Stop: 03/01/21 08:59 Last Admin: 02/12/21 09:59 Dose: 1 puffs Documented by: Glucagon (Glucagon For Inj 1 Mg Vial) 1 mg IM UD PRN; Protocol PRN Reason: Hypoglycemia Protocol Stop: 02/28/21 23:44 Glucose (Glucose 40% Gel 15 Gm Tube) 15 - 30 gm PO UD PRN; Protocol PRN Reason: Hypoglycemia Protocol Stop: 02/28/21 23:44 Glucose (Glucose 10 Tabs/Tube) 4 - 8 tabs PO UD PRN; Protocol PRN Reason: Hypoglycemia Protocol Stop: 02/28/21 23:44 Guaifenesin (Guaifenesin 600 Mg Tabcr) 600 mg PO Q12 [facility] Stop: 03/09/21 20:59 Last Admin: 02/12/21 10:00 Dose: 600 mg Documented by: Heparin Sodium (Porcine) (Heparin Sod 5,000 Unit/0.5 Ml Vial) 5,000 units SQ Q12 [facility] Stop: 03/01/21 08:59 Last Admin: 02/12/21 09:59 Dose: 5,000 units Documented by: Insulin Aspart (Insulin Aspart 100 Units/Ml 3 Ml Pen) 0 units SC ACHS [facility] Stop: 03/01/21 07:29 Last Admin: 02/12/21 09:27 Dose: Not Given Documented by: Labetalol HCl (Labetalol Hcl Iv 5 Mg/Ml 20ml) 5 mg IV Q6H PRN PRN Reason: hypertension Stop: 03/02/21 18:59 Last Admin: 02/01/21 00:57 Dose: 5 mg Documented by: Lidocaine (Lidocaine 5% 1 Patch) 1 patch TD QAM [facility] Stop: 03/02/21 01:59 Last Admin: 02/12/21 09:59 Dose: 1 patch Documented by: Losartan Potassium (Losartan Potassium 25 Mg Tab) 25 mg PO QAM [facility] Stop: 03/01/21 08:59 Last Admin: 02/12/21 09:59 Dose: 25 mg Documented by: Magnesium Hydroxide (Magnesium Hydroxide Susp 30 Ml Udc) 30 ml PO Q12H PRN PRN Reason: constipation Stop: 03/02/21 18:51 Last Admin: 02/09/21 13:28 Dose: 30 ml Documented by: Magnesium Oxide (Magnesium Oxide 400 Mg Tab) 400 mg PO [facility] Stop: 03/01/21 14:44 Last Admin: 02/12/21 09:59 Dose: 400 mg Documented by: Methylnaltrexone [place] (Methylnaltrexone [place] 12 Mg/0.6 Ml Vial) 6 mg SQ DAILY [facility] Stop: 03/04/21 08:59 Last Admin: 02/08/21 08:42 Dose: 6 mg Documented by: Miscellaneous (Carbohydrates For Hypoglycemia ) 15 - 30 gm PO UD PRN PRN Reason: Hypoglycemia Treatment Stop: 02/28/21 23:44 Miscellaneous (Remove Lidoderm Patch) 1 ea N/A DAILY@2100 [facility] Stop: 03/02/21 13:59 Last Admin: 02/11/21 20:23 Dose: 1 ea Documented by: Nitroglycerin (Nitroglycerin Sl 0.4 Mg/Tab Tab) 0.4 mg SL UD PRN PRN Reason: Chest Pain Stop: 02/28/21 23:37 Last Admin: 02/09/21 20:24 Dose: 0.4 mg Documented by: Ondansetron HCl (Ondansetron Inj 2 Mg/Ml 2 Ml Vial) 4 mg IV Q6H PRN PRN Reason: Nausea Stop: 02/28/21 23:37 Last Admin: 02/02/21 21:08 Dose: 4 mg Documented by: Oxycodone HCl (Oxycodone Hcl Ir 5 Mg Tab (Immediate Release)) 5 - 10 mg PO QID PRN PRN Reason: Pain Stop: 02/14/21 01:22 Last Admin: 02/12/21 01:35 Dose: 5 mg Documented by: Polyethylene Glycol (Polyethylene (Miralax) 17 Gm Pack) 17 gm PO DAILY PRN PRN Reason: Constipation Stop: 02/28/21 23:37 Last Admin: 02/04/21 20:38 Dose: 17 gm Documented by: Polyethylene Glycol (Polyethylene (Miralax) 17 Gm Pack) 17 gm PO DAILY [facility] Stop: 03/12/21 08:59 Last Admin: 02/12/21 10:00 Dose: 17 gm Documented by: Senna/Docusate Sodium (Docusate Sodium/[place] 50/8.6mg Tab) 1 tab PO BID PRN PRN Reason: constipation Stop: 03/03/21 20:59 Tramadol HCl (Tramadol Hcl 50 Mg Tablet) 25 mg PO Q6H PRN PRN Reason: Pain Stop: 02/28/21 23:37 Last Admin: 02/09/21 01:34 Dose: 25 mg Documented by:
--- NOTE | 2021-02-12 15:17 | Discharge Summary ---
Date of Service February 12, 2021 Admission HPI Per Admitting Provider An 81-year-old male with past medical history significant for type 2 diabetes, hyperlipidemia, aneurysm of common iliac artery, internal iliac artery, and femoral arteries, hypertension, chronic kidney disease stage III, status post abdominal aortic aneurysm repair, who lives at home with his son. Comes because of fall. As per the family, they heard a fall last night around 4:00 a.m. When they went and checked him, he was standing and complaining of headache and backache and he seemed confused. He was talking about his and seemed confused. In the morning, he was able to eat and drink, but he was not getting better. Complaining of back pain and he was brought into the hospital. Here, CT of the head was okay and imaging studies showed transverse fracture of L1 body with mild decrease of its height. The patient has complaints of back pain and was given a dose of fentanyl. Currently, he says he is comfortable, but somewhat drowsy. Denies any chest pain, denies any nausea, denies abdominal matheus n, denies any headache. Says he is feeling comfortable, could not get much history from the patient currently. As per the daughter, he was otherwise doing okay. He ambulates with a walker. He can take care of himself. He eats and swallows okay. There is no fevers, no nausea, no diarrhea. The patient complained that he was feeling somewhat dizzy and as per the daughter, he was having some cough. Admission Exam Per Admitting Provider GENERAL: The patient is alert and awake, could tell his name, not in acute distress. VITAL SIGNS: Temperature 36.5, pulse 84, respiratory rate 23, blood pressure 150/95, oxygen 98% on 2 liters. HEENT: Pupils equal, round and reactive to light. Oral mucosa moist. NECK: No neck masses. CARDIOVASCULAR: S1 and S2 heard. Regular rate and rhythm. No murmur, no gallop. RESPIRATORY SYSTEM: Normal AP diameter. No accessory muscle use. No wheezing, no crackles. ABDOMEN: Soft, bowel sounds present. Mild abdominal discomfort. CENTRAL NERVOUS SYSTEM: Alert and awake, oriented to name. Obeys simple commands. Moves extremities. EXTREMITIES: No edema, no erythema. Principal Diagnosis Fall Community-acquired pneumonia Acute encephalopathy Compression fracture of lumbar vertebra Constipation Diabetes mellitus type II CKD stage III Hypertension Discharge Exam Gen- AAO x 3, NAD Head- NCAT, EOMI, PERRLA, Anicteric Sclera Neck- Supple, No JVD Lungs- Clear to Auscultation Bilaterally, No Rales, No Rhonchi, No Wheezing Chest- +S1, +S2, No S3, No Murmurs Abdomen- Soft, Bowel Sounds Present, Non Tender, Non Distended Musculoskeletal- Full Range of Motion Bilaterally, No CVAT Extremities- No Edema, moves extremities Neuro- alert and oriented x3, answers questions appropriately, very hard of hearing, speech fluent, moves extremities Psych-Normal Mood Discharge Data Allergies Allergy/AdvReac Type Severity Reaction Status Date / Time ezetimibe [From Vytorin] AdvReac Intermediate Unknown Verified 01/29/21 17:23 simvastatin [From Vytorin] AdvReac Intermediate Unknown Verified 01/29/21 17:23 Consultations 01/30/21 08:00 Consult Orthopedic Surgery Routine 01/30/21 14:34 Consult Pain Management Routine 02/02/21 08:33 Consult General Surgery Routine Ordered Studies 01/29/21 18:15 CT cervical spine wo con Stat CT head/brain wo con Stat CT lumbar spine wo con Stat CT thoracic spine wo con Stat 01/29/21 22:56 CT abd pelvis wo con Urgent 02/01/21 15:29 CT head/brain wo con Routine 02/01/21 16:26 CT abd pelvis oral con only Routine Hospital Course (1) Compression fracture of lumbar vertebra: 81-year-old male with PMH of T2DM, HLD, aneurysm of common iliac artery/internal iliac artery/femoral artery, hypertension, CKD stage III, s/p abdominal aortic aneurysm repair was brought from home because of fall. He is being managed for the following. Compression fracture of lumbar vertebra Acute encephalopathy - resolved Patient performs independent ADLs per his daughter He is AO x3 at baseline Likely secondary to pneumonia and acute pain, also being contributed by pain medications. Admitting CT scan of lumbar spine demonstrate superior endplate fracture of L1 BLE neurovascular status WNL Orthopedics consulted No evidence of canal compromise or neurologic deficit. Ordered TLSO brace to be worn once able to transition to chair and undergo PT/OT. Considering kyphoplasty, however pt is now not interested - discussed further with his family. PT OT onboard. Expect improvement with ongoing PT OT and pain management. (02/07), worked with PT, seems to be improving, also patient says that pain is much better now controlled. Pain better controlled Continue with prn pain medications. He is able to answer questions appropriately Plan to discharge to SNF Pneumonia - resolved Admitted CXR: Opacities at the right mid lower lung region suggestive of atelectasis versus infiltrative process WBC elevated at around 15,000. Down to normal. Initially on Zosyn and doxy, then switched to p.o., Abx stop Date Feb 04. Cont. incentive spirometer Currently on RA (02/09) Constipation - resolved Patient complained of ongoing abd. pain and at times feels like he needs to move bowels Likely secondary to pain which is exacerbated by pain medication Continued with Colace, MiraLAX, daily Relistor at reduced dose [due to his creatinine clearance] until he moves his bowel normally. 02/01 CTAP suggestive of developing SBO - surgery consulted, 02/02 follow-up KUB x-ray ruled out SBO. Both imaging suggestive of large amount of stool throughout the colon. Surgery recommended outpatient follow-up with surgery for hernia. Laurenytely ordered (02/06) -patient had multiple bowel movements Diabetes mellitus type 2 Metformin held, continue with sliding scale CKD stage 3 Baseline creatinine 1.4 Continue monitor, try to avoid nephrotoxic agents #. Resume home medication for hypertension, COPD, hyperlipidemia, CAD 01/30 echo: EF 35 to 40% with moderately reduced LV systolic function, moderate aortic valve sclerosis, mild MR, mild aortic root dilatation. BP elevated previously, despite home medication likely secondary to pain. Added alfonzo HCTZ 02/01, discontinued on 02/07 as BP 108/75 (02/07) - cont. to monitor 02/10 BP at goal 02/12 BP at goal, current BP 134/80 DVT prophylaxis- heparin Dispo: PT recommending SNF upon discharge. Total Time Total Time Spent Total Time Spent (In Minutes): 40 Discharge Plan Discharge Items Patient Disposition: Transfer Jail Fac Reason For Visit: FALL Discharge Diagnosis: Fall Community-acquired pneumonia Acute encephalopathy Compression fracture of lumbar vertebra Constipation Diabetes mellitus type II CKD stage III Hypertension Activity: Per Instructions section Non-emergency contact: Primary Care Provider Call non-emergency contact if: you have any medication questions and your symptoms worsen Follow-up/Referrals: PCP,NO [Physician] - Diet: Carb Consistent or DM2 Diet Texture: Easy to Chew Addtl Attending Provider Instructions: You were diagnosed with pneumonia, which was treated with antibiotics, continue with incentive spirometer several times a day. Also continue using guaifenesin/Mucinex. For back pain, recommend, taking Tylenol 1000 mg three times a day, max dose 3000 mg daily. Continue using lidocaine patch on your back. For more severe pain, you can take oxycodone 5 mg every 4 hours, as prescribed, or tramadol 25 mg every 6 hours as prescribed. As you had difficulty with constipation, and pain medications can cause constipation, consider taking MiraLAX daily or every other day. You may also need to use Colace or senna/other stool softeners. Continue physical therapy under the supervision of your therapist at the nursing facility. Make sure to hydrate yourself well, and have a good diet, with more protein (lean meats), and dairy products. Addtl Route Delivery Supervisor Provider Instructions: Per orthopedic surgeon, Dr. Bob - ordered a TLSO brace to wear once he is able to begin transitions to a chair and undergo physical therapy occupational therapy. Pending Studies at Discharge: No Stand-Alone Forms: My [facility] [employer] Skilled Items Patient informed of condition?: Yes DNR: No Discharge Level of Care: Skilled Communicable Disease: No Discharge Prognosis: Stable Lines: None Urinary Catheter: No Medications and DC Order Prescriptions: New oxycodone 5 mg Tablet 5 mg PO Q4H PRN (Reason: pain (scale score 7-10)) Qty: 10 RF: 0 tramadol 50 mg Tablet 25 mg PO Q6H PRN (Reason: pain (scale score 4-6)) Qty: 10 RF: 0 polyethylene glycol 3350 [Miralax] 17 gram Powder In Packet 17 g PO DAILY PRN (Reason: constipation) Qty: 14 RF: 0 sennosides-docusate sodium [Senokot-S] 8.6-50 mg Tablet 1 tab PO BID PRN (Reason: constipation) Qty: 10 RF: 0 guaifenesin [Mucinex] 600 mg Tablet Extended Release 12hr 600 mg PO Q12 Qty: 10 RF: 0 lidocaine 5 % Adhesive Patch,Medicated 1 patch transdermal QAM Qty: 15 RF: 0 Continued atorvastatin 40 mg tablet 50 mg PO HS RF: 0 metformin 500 mg tablet 500 mg PO BID RF: 0 carvedilol 6.25 mg tablet 6.25 mg PO BID RF: 0 losartan 25 mg tablet 25 mg PO QAM RF: 0 albuterol sulfate 90 mcg/actuation HFA aerosol inhaler 2 puff INHALATION Q4 PRN (Reason: Shortness Of Breath Or Wheezing) RF: 0 Flovent HFA 110 mcg/actuation HFA aerosol inhaler 2 puff INHALATION BID RF: 0 aspirin [Aspirin Low Dose] 81 mg Tablet,Delayed Release (Dr/Ec) 81 mg PO QAM RF: 0 Discharge Orders: Discharge Order (Routine); Ordered 02/12/21 Ordered By: Wiley Oconnor/Other Patient Handouts: A1C, High Blood Sugar (Hyperglycemia), Hypoglycemia (Low Blood Sugar), Managing Type 2 Diabetes Admission Data Admit Date/Time: 01/29/21 22:27 Attending Provider: Wiley Kerr Admit Provider: Nilesh Nagel Primary Care Provider: Nathan Hall Other Providers: Maximo Bob ; Juany Carrillo ; Arnie Covington ; Migel Phipps [place] ; [place],[facility]
== END 2021-02-12 16:09 | DRG 193 ==
LOC: ED 16:19 → SUATTDRO 22:27 → 2W 22:27
DX: K43.9 Ventral hernia without obstruction or gangrene; Z88.8 Allergy status to other drugs, medicaments and biological substances; M53.3 Sacrococcygeal disorders, not elsewhere classified; R40.0 Somnolence; S32.010A Wedge compression fracture of first lumbar vertebra, initial encounter for closed fracture; J44.9 Chronic obstructive pulmonary disease, unspecified; Z87.891 Personal history of nicotine dependence; Z79.82 Long term (current) use of aspirin; W19.XXXA Unspecified fall, initial encounter; T50.995A Adverse effect of other drugs, medicaments and biological substances, initial encounter; G92 Toxic encephalopathy; Z79.84 Long term (current) use of oral hypoglycemic drugs; I12.9 Hypertensive chronic kidney disease with stage 1 through stage 4 chronic kidney disease, or unspecified chronic kidney disease; N18.31 Chronic kidney disease, stage 3a; E78.5 Hyperlipidemia, unspecified; Z79.899 Other long term (current) drug therapy; J98.11 Atelectasis; K59.00 Constipation, unspecified; I25.10 Atherosclerotic heart disease of native coronary artery without angina pectoris; E11.22 Type 2 diabetes mellitus with diabetic chronic kidney disease; Y92.239 Unspecified place in hospital as the place of occurrence of the external cause; J18.9 Pneumonia, unspecified organism; Z82.49 Family history of ischemic heart disease and other diseases of the circulatory system

== ENCOUNTER 2021-03-19 11:41 | Inpatient (IN) ==
[2021-03-19] MEDS ORDERED: SODIUM CHLORIDE 0.9% 1000ML 1,000 ML IV SCH (12:00)
[2021-03-19 12:17] LABS: Basophils # (auto) 0.02 K/uL (0-0.2); Basophils % (auto) 0.1 %; Eosinophils # (auto) 0.44 K/uL (0-0.5); Eosinophils % (auto) 3.3 %; Hematocrit (blood only) 39.3 % (42-52); Hemoglobin 13.1 g/dL (14.0-18.0); Immature Granulocytes # (auto) 0.21 K/uL (0.00-0.02); Immature Granulocytes % (auto) 1.6 %; Lymphocytes # (auto) 1.43 K/uL (1.2-3.4); Lymphocytes % (auto) 10.6 %; Mean Corpuscular Hemoglobin 29.8 pg (25-34); Mean Corpuscular Hgb Conc 33.3 g/dL (32-36); Mean Corpuscular Volume 89.3 fL (80-100); Monocytes # (auto) 1.02 K/uL (0.11-0.59); Monocytes % (auto) 7.6 %; Neutrophils # (auto) 10.38 K/uL (1.4-6.5); Neutrophils % (auto) 76.8 %; Platelet Count 223 K/uL (130-400); RDW Coefficient of Variation 16.5 % (11.5-14.5); RDW Standard Deviation 52.8 fL (36.4-46.3)
--- NOTE | 2021-03-19 12:32 | CT Scan Report ---
CT SCAN OF THE BRAIN WITHOUT IV CONTRAST CLINICAL HISTORY: Fall. COMPARISON STUDY: CT of the brain dated 02/01/2021. TECHNIQUE: Unenhanced axial CT scan of the brain is performed from the vertex to the skull base. A do se lowering technique was utilized adhering to the principles of ALARA. CT DOSE: 614.27 mGy.cm FINDINGS: Brain parenchyma: There are age-related involutional changes noting mild to moderate subcortical and periventricular microangiopathic change. There is no hemorrhage, mass effect, or evidence of acute t erritorial ischemia by CT criteria. Mcallister-white matter differentiation is preserved. No extra-axial fl uid collection is seen. Ventricles, sulci, cisterns: Prominent secondary to involutional change. Intracranial vasculature: There is atherosclerotic calcification of the cavernous carotid and vertebr al arteries. Calvarium: The skeletal structures are osteopenic. No depressed calvarial fracture is identified. Sinuses and mastoids: The visualized paranasal sinuses are clear. The mastoid air cells are well pneu matized. Orbits: The bony orbits are grossly intact. There are bilateral ocular lens implants. IMPRESSION: There is no hemorrhage, mass effect, or evidence of acute territorial ischemia by CT jud cuadra. ACT 112: Negative or not required by law. Electronically signed by: Andrey Anne M.D. 03/19/2021 12:30 PM
[2021-03-19 12:36] LABS: Alanine Aminotransferase 14 U/L (12-78); Albumin Level 2.9 gm/dl (3.4-5.0); Aspartate Aminotransferase 11 U/L (15-37); BUN Creatinine Ratio 17.5 (10-20); Blood Urea Nitrogen 26 mg/dl (7-18); Calcium 9.4 mg/dl (8.5-10.1); Carbon Dioxide 22 mmol/L (21-32); Chloride 113 mmol/L (98-107); Creatinine Clr Calc Pharmacy 39.7 ml/min; Est GFR (African American) 49.1 ml/min; Est GFR (Non-African American) 42.4 ml/min; Glucose 131 mg/dl (70-99); INR 1.1 (0.9-1.1); Magnesium 1.6 mg/dl (1.8-2.4); Partial Thromboplastin Time 27.4 Seconds (21.0-31.0); Potassium 4.5 mmol/L (3.5-5.1); Sodium 143 mmol/L (136-145)
[2021-03-19 12:47] LABS: Albumin Globulin Ratio 0.8 (0.9-2); Alkaline Phosphatase 113 U/L (45-117); Bilirubin,Total 0.9 mg/dl (0.2-1); Creatine Kinase 40 U/L (39-308); Globulin 3.6 gm/dl (2.5-4.0); Total Protein 6.5 gm/dl (6.4-8.2); Troponin I < 0.015 ng/ml (0-0.045)
--- NOTE | 2021-03-19 13:10 | Emergency Department Note ---
Impression & Plan Arterial occlusion, Weakness, LASHANDA (acute kidney injury) ED Provider Note NAME: IGLESIA KITCHEN AGE: 81 SEX: M : 1940 ARRIVES VIA: Ambulance INFORMANT: Patient, EMS, patient's family ED PROVIDER(S): Lucas Hull DO CHIEF COMPLAINT: Altered mental status HPI: The patient is an 81-year-old male who presented to the emergency department with altered mental status. The [facility] He recently after that discharge was at home with family over his. According to family members he has been having decreasing health. He is not been eating. He has been compliant with his outpatient medications. He was not seen by his primary care physician. He has had multiple falls in the past. The patient's family does not relate a recent fall. The patient has had increased urine frequency. He has had no fever. He is complain of no pain. He is complaint no lower extremity pain. The patient has had no trauma to the lower legs. ROS: See above HPI for pertinent positives & negatives. A total of 10 systems reviewed and were otherwise negative. PAST MEDICAL HISTORY: See Below PAST SURGICAL HISTORY: See Below FAMILY HISTORY: See Below SOCIAL HISTORY: See Below HOME MEDICATIONS: See Below ALLERGIES: See Below VITALS: See Below PHYSICAL EXAMINATION: GENERAL: The patient is awake and answering questions appropriately. EYES: The conjunctivae are clear. The pupils are round and reactive. EARS, NOSE, MOUTH AND THROAT: The nose is without any evidence of any deformity. Mucous membranes are dry. NECK: The neck is nontender and supple. RESPIRATORY: Normal respiratory effort is noted there is no evidence of wheezing rhonchi or rales CARDIOVASCULAR: Regular rate and rhythm noted there no murmurs rubs or gallops normal S1 normal S2. GASTROINTESTINAL: The abdomen is soft. Abdomen is nontender. MUSCULOSKELETAL/EXTREMITIES: There is no evidence of gross deformity full range of motion is noted in the hips and shoulders. SKIN: The right foot is dusky in appearance. Pulses are diminished but symmetric in both feet. There was no specific lymphangitic streaking. There was tenderness to the right first metacarpal phalangeal joint. NEUROLOGIC: Patient is awake and oriented to person place but not time. Strength was symmetric. MEDICAL DECISION MAKING: The patient is an 81-year-old male who presented to the emergency department by ambulance for an evaluation of generalized weakness and not eating. The patient was found to have mottling and erythema to his right lower extremity. This appears to be chronic according to his family member however there does appear to be some acute findings on arterial Doppler. I discussed the patient's laboratory and radiographic studies with him and his son. I also discussed his case with the on-call vascular surgeon. The patient was started on IV heparin. I discussed his case with the on-call [facility]. They will evaluate the patient in the emergency department for further management and disposition. I did have a discussion with the family member that the patient may not be perfect surgical candidate and that if anticoagulation and interventional therapy was not going to be successful he may be in need of further surgery such as amputation. The patient's son is going to talk to the other family members about this. The she was also covered with an antibiotic for the possibility of cellulitis. Blood cultures were obtained. Triage Nursing notes reviewed. Prior medical records reviewed Vital Signs: reviewed and remarkable for elevated blood pressure. Differential diagnosis: Infection, dehydration, metabolic abnormality, hypo/hyperglycemia, electrolyte disturbance, anemia, hypoxia, cardiac sources, intracerebral event, toxicologic, neurologic, as well as other pathologies. ER treatment provided: See below Diagnostics interpreted by me: ECG: EKG was obtained in the emergency department. My interpretation is normal sinus rhythm at 94 bpm. There is no ectopy. Nonspecific ST segment abnormalities were noted in the anterior and high lateral leads. This was compared to a tracing from February 092020. No significant changes were noted. Cardiac Monitoring: An order was placed for continuous cardiac monitoring. The monitor shows a rate of 89 bpm with sinus rhythm. Laboratory studies: As stated above and show below. Imaging studies: See below Consultation(s): 1430: I discussed this case with Dr. Vicente who is on-call for the vascular surgery group. He recommends an ultrasound of the abdomen and IV heparin. 1500: I discussed this case with Michela who is on-call for [facility]. They will evaluate the patient in the emergency department. ED COURSE: Procedures: none PDMP:reviewed and no issues Critical Care: I have personally spent greater than 45 minutes of critical care time in the direct management of this patient. This includes bedside care, interpretation of diagnostic studies, and testing, discussion with consultants, patient, and family members, and other required patient management activities. This 45 minutes is in excess of all separately billable procedures. Past Med/Surg History Medical History (Updated 03/19/21 @ 15:22 by Lucas Hull DO) Abdominal pain Aneurysm, common iliac artery CAD (coronary artery disease) CKD (chronic kidney disease) stage 3, GFR 30-59 ml/min COPD (chronic obstructive pulmonary disease) Femoral artery aneurysm, bilateral HLD (hyperlipidemia) HTN (hypertension) Sacroiliac joint pain T2DM (type 2 diabetes mellitus) Ventral hernia Surgical History (Updated 03/19/21 @ 15:20 by Michela Walsh PA-C) History of AAA (abdominal aortic aneurysm) repair History of appendectomy History of cataract surgery History of hernia repair Family History Mother Alzheimer disease Diabetes Father Myocardial infarction Heart disease Brother Coronary heart disease Hx of CABG Social History Smoking Status: Former smoker packs per day: 3; Years Smoked: 55; Smoking End Date: 1995; Hx Alcohol Use: No Hx Substance Use: No Preferred Language: Fijian Communication Ability: Effective Beliefs That Will Affect Care: None marital status: / Current Living Situation: Family How many Children do You have: 1 Feels Safe at Home: Yes Assistive Devices: Glasses Allergies Allergies Allergy/AdvReac Type Severity Reaction Status Date / Time ezetimibe [From Vytorin] AdvReac Intermediate Unknown Verified 03/19/21 15:18 simvastatin [From Vytorin] AdvReac Intermediate Unknown Verified 03/19/21 15:18 Home Meds Home Medications Medication Instructions Recorded Confirmed albuterol sulfate 90 mcg/actuation 2 puff INHALATION Q4 PRN 01/29/21 01/29/21 aerosol inhaler aspirin 81 mg tablet,delayed 81 mg PO QAM 01/29/21 01/29/21 release (Aspirin Low Dose) atorvastatin 40 mg tablet 50 mg PO HS 01/29/21 01/29/21 carvedilol 6.25 mg tablet 6.25 mg PO BID 01/29/21 01/29/21 fluticasone propionate 110 2 puff INHALATION BID 01/29/21 01/29/21 mcg/actuation HFA aerosol inhaler (Flovent HFA) losartan 25 mg tablet 25 mg PO QAM 01/29/21 01/29/21 metformin 500 mg tablet 500 mg PO BID 01/29/21 01/29/21 Previous Rx's Medication Instructions Recorded guaifenesin 600 mg tablet, 600 mg PO Q12 #10 tab 02/12/21 extended release 12 hr (Mucinex) lidocaine 5 % topical patch 1 patch TRANSDERMAL QAM #15 ea 02/12/21 oxycodone 5 mg tablet 5 mg PO Q4H PRN #10 tab 02/12/21 polyethylene glycol 3350 17 gram 17 g PO DAILY PRN #14 ea 02/12/21 oral powder packet (Miralax) sennosides 8.6 mg-docusate sodium 1 tab PO BID PRN #10 tab 02/12/21 50 mg tablet (Senokot-S) tramadol 50 mg tablet 25 mg PO Q6H PRN #10 tab 02/12/21 Results & Data (ED) Vital Signs Vital Signs - 24 hr 03/19/21 11:56 03/19/21 12:13 03/19/21 12:14 Temperature 36.4 C L Temperature Source Oral Pulse Rate 93 H Pulse Rate [Apical] Respiratory Rate 18 Respiratory Effort / Characteristics Non-Labored Spontaneous Respiratory Depth Normal Blood Pressure 123/86 Blood Pressure [Left Arm] Blood Pressure Mean 98 Blood Pressure Mean [Left Arm] Blood Pressure Position Lying Pulse Oximetry 97 Oxygen Delivery Method Room Air Room Air Room Air Oxygen Flow Rate Sepsis Recent Fever Within 48 Hours No Sepsis New/Unexplained Change in Mental Status N/A Sepsis Action Taken by Nursing No Action Required 03/19/21 13:44 03/19/21 14:30 03/19/21 15:00 Temperature Temperature Source Pulse Rate 89 Pulse Rate [Apical] 98 H 88 Respiratory Rate 18 18 23 Respiratory Effort / Characteristics Respiratory Depth Blood Pressure 153/105 H Blood Pressure [Left Arm] 143/101 H 140/91 Blood Pressure Mean 121 Blood Pressure Mean [Left Arm] 115 107 Blood Pressure Position Pulse Oximetry 96 99 100 Oxygen Delivery Method Room Air Room Air Nasal Cannula Oxygen Flow Rate 2 Sepsis Recent Fever Within 48 Hours Sepsis New/Unexplained Change in Mental Status Sepsis Action Taken by Longterm Medications Current Medication List: was personally reviewed by me Laboratory Data Attestation: I reviewed the patient's lab results. Result diagrams: 03/19/21 12:05 03/19/21 12:05 Lab Results 03/19/21 03/19/21 03/19/21 Range/Units 12:05 12:05 12:05 WBC 13.50 H (4.8-10.8) K/uL RBC 4.40 L (4.7-6.1) M/uL Hgb 13.1 L (14.0-18.0) g/dL Hct 39.3 L (42-52) % MCV 89.3 (80-100) fL MCH 29.8 (25-34) pg MCHC 33.3 (32-36) g/dL RDW Std Deviation 52.8 H (36.4-46.3) fL RDW Coeff of Ian 16.5 H (11.5-14.5) % Plt Count 223 (130-400) K/uL MPV 10.0 (7.4-10.4) fL Immature Gran % (Auto) 1.6 % Neut % (Auto) 76.8 % Lymph % (Auto) 10.6 % Sully % (Auto) 7.6 % Eos % (Auto) 3.3 % Baso % (Auto) 0.1 % Neut # (Auto) 10.38 H (1.4-6.5) K/uL Lymph # (Auto) 1.43 (1.2-3.4) K/uL Sully # (Auto) 1.02 H (0.11-0.59) K/uL Eos # (Auto) 0.44 (0-0.5) K/uL Baso # (Auto) 0.02 (0-0.2) K/uL Immature Gran # (Auto) 0.21 H (0.00-0.02) K/uL PT 11.0 (9.0-12.0) Seconds INR 1.1 (0.9-1.1) APTT 27.4 (21.0-31.0) Seconds PTT Ratio 1.0 Sodium 143 (136-145) mmol/L Potassium 4.5 (3.5-5.1) mmol/L Chloride 113 H (98-107) mmol/L Carbon Dioxide 22 (21-32) mmol/L Anion Gap 8.0 (3-11) BUN 26 H (7-18) mg/dl Creatinine 1.51 H (0.6-1.4) mg/dl Est Cr Clr Drug Dosing 39.7 ml/min Est GFR ( Amer) 49.1 ml/min Est GFR (Non-Af Amer) 42.4 ml/min BUN/Creatinine Ratio 17.5 (10-20) Glucose 131 H (70-99) mg/dl POC Glucose (70-99) mg/dl Lactate (0.4-2.0) mmol/L Calcium 9.4 (8.5-10.1) mg/dl Magnesium 1.6 L (1.8-2.4) mg/dl Total Bilirubin 0.9 (0.2-1) mg/dl AST 11 L (15-37) U/L ALT 14 (12-78) U/L Alkaline Phosphatase 113 (45-117) U/L Total Creatine Kinase 40 (39-308) U/L Troponin I < 0.015 (0-0.045) ng/ml Total Protein 6.5 (6.4-8.2) gm/dl Albumin 2.9 L (3.4-5.0) gm/dl Globulin 3.6 (2.5-4.0) gm/dl Albumin/Globulin Ratio 0.8 L (0.9-2) TSH 1.470 (0.300-4.500) uIu/ml Urine Color Urine Appearance (Clear) Urine pH (4.5-7.5) Ur Specific [place] (1.000-1.030) Urine Protein (Negative) Urine Glucose (UA) (Negative) Urine Ketones (Negative) Urine Blood (Negative) Urine Nitrite (Negative) Urine Bilirubin (Negative) Urine Urobilinogen (Negative) Ur Leukocyte Esterase (Negative) 03/19/21 03/19/21 03/19/21 Range/Units 12:05 12:09 14:15 WBC (4.8-10.8) K/uL RBC (4.7-6.1) M/uL Hgb (14.0-18.0) g/dL Hct (42-52) % MCV (80-100) fL MCH (25-34) pg MCHC (32-36) g/dL RDW Std Deviation (36.4-46.3) fL RDW Coeff of Ian (11.5-14.5) % Plt Count (130-400) K/uL MPV (7.4-10.4) fL Immature Gran % (Auto) % Neut % (Auto) % Lymph % (Auto) % Sully % (Auto) % Eos % (Auto) % Baso % (Auto) % Neut # (Auto) (1.4-6.5) K/uL Lymph # (Auto) (1.2-3.4) K/uL Sully # (Auto) (0.11-0.59) K/uL Eos # (Auto) (0-0.5) K/uL Baso # (Auto) (0-0.2) K/uL Immature Gran # (Auto) (0.00-0.02) K/uL PT (9.0-12.0) Seconds INR (0.9-1.1) APTT (21.0-31.0) Seconds PTT Ratio Sodium (136-145) mmol/L Potassium (3.5-5.1) mmol/L Chloride (98-107) mmol/L Carbon Dioxide (21-32) mmol/L Anion Gap (3-11) BUN (7-18) mg/dl Creatinine (0.6-1.4) mg/dl Est Cr Clr Drug Dosing ml/min Est GFR ( Amer) ml/min Est GFR (Non-Af Amer) ml/min BUN/Creatinine Ratio (10-20) Glucose (70-99) mg/dl POC Glucose 128 H (70-99) mg/dl Lactate 2.0 (0.4-2.0) mmol/L Calcium (8.5-10.1) mg/dl Magnesium (1.8-2.4) mg/dl Total Bilirubin (0.2-1) mg/dl AST (15-37) U/L ALT (12-78) U/L Alkaline Phosphatase (45-117) U/L Total Creatine Kinase (39-308) U/L Troponin I (0-0.045) ng/ml Total Protein (6.4-8.2) gm/dl Albumin (3.4-5.0) gm/dl Globulin (2.5-4.0) gm/dl Albumin/Globulin Ratio (0.9-2) TSH (0.300-4.500) uIu/ml Urine Color Yellow Urine Appearance Clear (Clear) Urine pH 5.0 (4.5-7.5) Ur Specific [place] 1.016 (1.000-1.030) Urine Protein Negative (Negative) Urine Glucose (UA) Negative (Negative) Urine Ketones Negative (Negative) Urine Blood Negative (Negative) Urine Nitrite Negative (Negative) Urine Bilirubin Negative (Negative) Urine Urobilinogen Negative (Negative) Ur Leukocyte Esterase Negative (Negative) Administered Medications Magnesium Sulfate/Dextrose (Magnesium Sulfate / D5w) 1 gm in 100 mls @ 100 mls/hr IV Q1H OTILIA Stop: 03/19/21 15:26 Last Admin: 03/19/21 15:07 Dose: 100 mls/hr Documented by: [id number] Infusion: 03/19/21 14:45 Dose: 100 mls/hr Documented by: [id number] Admin: 03/19/21 13:45 Dose: 100 mls/hr Documented by: [id number] Heparin Sodium/Dextrose (Heparin Sodium/Dextrose) 25,000 units in 500 mls @ 0.02 mls/hr IV .Q24H OTILIA; Protocol Stop: 04/18/21 14:59 Last Admin: 03/19/21 15:06 Dose: 1,350 units/hr, 27 mls/hr Documented by: [id number] Cosigned by: [id number] Discontinued Medications Heparin Sodium (Porcine) (Heparin Sod (Porcine) 1000 Unit/Ml) 1 units IV NOW ONE Stop: 03/19/21 14:49 Last Admin: 03/19/21 15:07 Dose: 5,000 units Documented by: [id number] Cosigned by: [id number] Heparin Sodium/Dextrose (Heparin Iv Adult Wt-Based Standard With Bolus Protocol) 1 ea IV NOW STA; Protocol Stop: 03/19/21 14:33 Last Admin: 03/19/21 15:07 Dose: 1 ea Documented by: [id number] Sodium Chloride (Nss 1000ml) 1,000 mls @ 999 mls/hr IV .Q1H1M OTILIA Stop: 03/19/21 13:00 Last Infusion: 03/19/21 13:33 Dose: 0 mls/hr Documented by: [id number] Admin: 03/19/21 12:15 Dose: 999 mls/hr Documented by: [id number] Ceftriaxone Sodium (Rocephin) 1,000 mg in 50 mls @ 100 mls/hr IV NOW STA Stop: 03/19/21 15:06 Last Admin: 03/19/21 15:06 Dose: 100 mls/hr Documented by: [id number] Imaging Data Radiologist's Impression: Chest X-Ray 03/19/21 11:54 XR chest 1V portable CLINICAL HISTORY: weakness COMPARISON STUDY: January 29, 2021 FINDINGS: No pneumothorax. No pleural effusion. Interval prominence of linear density at the left lower lung could represent atelectasis or infiltrates. Previously seen diffuse reticular opacities might represent chronic scarring versus scattered atelectasis. Evaluation is suboptimal due to rotation. Redemonstration of mediastinal prominence. Cardiac silhouette is within normal limits in size. No significant pulmonary vascular congestion.. Osseous structures: Osteopenia. Degenerative changes of the spine. Gas-filled loop of bowel are seen within left upper quadrant. IMPRESSION: 1. Possible atelectasis or infiltrate at the left base. 2. Suboptimal exam due to rotation. ACT 112: Negative or not required by law. The above report was generated using voice recognition software. It may contain grammatical, syntax or spelling errors. Electronically signed by: Leia Rowan DO 03/19/2021 1:45 PM Duplex Scan Lower Extremity Artery 03/19/21 11:54 ULTRASOUND RIGHT LOWER EXTREMITY ARTERIAL CLINICAL HISTORY: Right leg pain. COMPARISON STUDY: No priors. TECHNIQUE: Real-time grayscale and color Doppler sonography of the arteries of the right lower extremities performed from the inguinal crease to the foot. FINDINGS: There is advanced atherosclerotic calcification and irregularity of the arteries of the right lower extremity. 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 There are triphasic waveforms in the common femoral artery, which is patent with velocities measuring up to 17 cm/s. The profunda femoris artery is patent with velocities measuring up to 84 cm/s. There are triphasic arterial waveforms throughout the superficial femoral artery with velocities measuring up to 150 cm/s. There is an aneurysm of the distal superficial femoral/popliteal artery which measures up to 4.3 cm in diameter. The patent luminal diameter measures 1.2 cm. There is nearly occlusive thrombus within the popliteal artery distal to the aneurysm with only trace flow. This extends approximately 3 cm in length. No flow is shown within the distal popliteal artery. There is only trace flow throughout the calf vessels. Velocities within the patent portions of the popliteal artery measure up to 16 cm/s. Velocities within the calf arteries measure up to 23 cm/s. Foci of focal occlusion are suggested within the anterior tibial, posterior tibial, and peroneal arteries. The dorsalis pedis artery is patent with velocities measuring up to 21 cm/s. There is monophasic flow within the calf vessels. IMPRESSION: 1. Advanced atherosclerotic changes seen throughout the arteries of the right lower extremity. 2. 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 3. There is acute appearing thrombus within the popliteal artery just below the aneurysm which is nearly occlusive. 4. 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 4. Only trace flow is shown within the calf arteries, and all 3 calf arteries appear to show segmental occlusions. 5. 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 Dictated: 03/19/2021 1:38 PM Transcribed: 03/19/2021 2:01 PM Florencia [id number] [facility] Electronically signed by: Andrey Anne M.D. 03/19/2021 2:13 PM Foot X-Ray 03/19/21 11:54 XR foot RT min 3V routine HISTORY: 81 years-old Male redness acute pain of the right foot COMPARISON: None TECHNIQUE: 3 views of the right foot FINDINGS: Demineralized appearance of the bones. Multifocal mostly mild osteoarthritis. Mi ld to moderate osteoarthritis of the first MTP joint. Spurring of the calcaneus. Mild soft tissue swelling of the forefoot. No acute fracture, dislocation or opaque foreign body. IMPRESSION: No acute fracture. ACT 112: Negative or not required by law. The above report was generated using voice recognition software. It may contain grammatical, syntax or spelling errors. Electronically signed by: Cordell West M.D. 03/19/2021 1:[address] 03/19/21 11:54 CT SCAN OF THE BRAIN WITHOUT IV CONTRAST CLINICAL HISTORY: Fall. COMPARISON STUDY: CT of the brain dated 02/01/2021. TECHNIQUE: Unenhanced axial CT scan of the brain is performed from the vertex to the skull base. A dose lowering technique was utilized adhering to the principles of ALARA. CT DOSE: 614.27 mGy.cm FINDINGS: Brain parenchyma: There are age-related involutional changes noting mild to moderate subcortical and periventricular microangiopathic change. There is no hemorrhage, mass effect, or evidence of acute territorial ischemia by CT criteria. Mcallister-white matter differentiation is preserved. No extra-axial fluid collection is seen. Ventricles, sulci, cisterns: Prominent secondary to involutional change. Intracranial vasculature: There is atherosclerotic calcification of the cavernous carotid and vertebral arteries. Calvarium: The skeletal structures are osteopenic. No depressed calvarial fracture is identified. Sinuses and mastoids: The visualized paranasal sinuses are clear. The mastoid air cells are well pneumatized. Orbits: The bony orbits are grossly intact. There are bilateral ocular lens implants. IMPRESSION: There is no hemorrhage, mass effect, or evidence of acute territorial ischemia by CT criteria. ACT 112: Negative or not required by law. Electronically signed by: Andrey Anne M.D. 03/19/2021 12:30 PM KUB X-Ray 03/19/21 11:54 KUB CLINICAL HISTORY: Constipation. FINDINGS: 2 AP supine abdominal radiographs are compared to study dated 02/02/2021 and correlated with abdominal CT dated 02/01/2021. There is a nonobstructed abdominal bowel gas pattern noting moderate to severe constipation. No evidence of intraperitoneal free air is seen on these supine views. There are no abnormal abdominal calcifications. An aortobiiliac stent graft is in place. Phleboliths are seen in the pelvis. The skeletal structures are osteopenic and appear intact. There is lumbosacral spondylosis. IMPRESSION: Moderate to severe constipation. Electronically signed by: Andrey Anne M.D. 03/19/2021 1:50 PM Discharge Plan Visit Data Chief Complaint: Altered Mental Status Stated Complaint: AMS ED Provider: Lucas Hull Discharge Problem: Arterial occlusion, Weakness, LASHANDA (acute kidney injury) Patient Disposition: Being Evaluated by Hospitalist Forms Stand Alone Forms: My [facility] [place] [employer] Prescriptions Prescriptions: No Action atorvastatin 40 mg tablet 50 mg PO HS RF: 0 metformin 500 mg tablet 500 mg PO BID RF: 0 carvedilol 6.25 mg tablet 6.25 mg PO BID RF: 0 losartan 25 mg tablet 25 mg PO QAM RF: 0 albuterol sulfate 90 mcg/actuation HFA aerosol inhaler 2 puff INHALATION Q4 PRN (Reason: Shortness Of Breath Or Wheezing) RF: 0 Flovent HFA 110 mcg/actuation HFA aerosol inhaler 2 puff INHALATION BID RF: 0 aspirin [Aspirin Low Dose] 81 mg Tablet,Delayed Release (Dr/Ec) 81 mg PO QAM RF: 0 oxycodone 5 mg Tablet 5 mg PO Q4H PRN (Reason: pain (scale score 7-10)) Qty: 10 RF: 0 tramadol 50 mg Tablet 25 mg PO Q6H PRN (Reason: pain (scale score 4-6)) Qty: 10 RF: 0 polyethylene glycol 3350 [Miralax] 17 gram Powder In Packet 17 g PO DAILY PRN (Reason: constipation) Qty: 14 RF: 0 sennosides-docusate sodium [Senokot-S] 8.6-50 mg Tablet 1 tab PO BID PRN (Reason: constipation) Qty: 10 RF: 0 guaifenesin [Mucinex] 600 mg Tablet Extended Release 12hr 600 mg PO Q12 Qty: 10 RF: 0 lidocaine 5 % Adhesive Patch,Medicated 1 patch transdermal QAM Qty: 15 RF: 0 Referrals Referrals: Nathan Hall MD [Primary Care Provider] -
--- NOTE | 2021-03-19 13:35 | XRay Report ---
XR foot RT min 3V routine HISTORY: 81 years-old Male redness acute pain of the right foot COMPARISON: None TECHNIQUE: 3 views of the right foot FINDINGS: Demineralized appearance of the bones. Multifocal mostly mild osteoarthritis. Mild to moderate osteoa rthritis of the first MTP joint. Spurring of the calcaneus. Mild soft tissue swelling of the forefoot . No acute fracture, dislocation or opaque foreign body. IMPRESSION: No acute fracture. ACT 112: Negative or not required by law. The above report was generated using voice recognition software. It may contain grammatical, syntax o r spelling errors. Electronically signed by: Cordell West M.D. 03/19/2021 1:34 PM
[2021-03-19] MEDS: MAGNESIUM SULFATE / D5W 1 GM/100 ML BAG IV SCH ×2 (13:45→15:07)
--- NOTE | 2021-03-19 13:46 | XRay Report ---
XR chest 1V portable CLINICAL HISTORY: weakness COMPARISON STUDY: January 29, 2021 FINDINGS: No pneumothorax. No pleural effusion. Interval prominence of linear density at the left lower lung could represent atelectasis or infiltrat es. Previously seen diffuse reticular opacities might represent chronic scarring versus scattered atelect asis. Evaluation is suboptimal due to rotation. Redemonstration of mediastinal prominence. Cardiac silhouette is within normal limits in size. No significant pulmonary vascular congestion.. Osseous structures: Osteopenia. Degenerative changes of the spine. Gas-filled loop of bowel are seen within left upper quadrant. IMPRESSION: 1. Possible atelectasis or infiltrate at the left base. 2. Suboptimal exam due to rotation. ACT 112: Negative or not required by law. The above report was generated using voice recognition software. It may contain grammatical, syntax o r spelling errors. Electronically signed by: Leia Rowan DO 03/19/2021 1:45 PM
--- NOTE | 2021-03-19 13:51 | XRay Report ---
KUB CLINICAL HISTORY: Constipation. FINDINGS: 2 AP supine abdominal radiographs are compared to study dated 02/02/2021 and correlated with abdominal CT dated 02/01/2021. There is a nonobstructed abdominal bowel gas pattern noting moderate t o severe constipation. No evidence of intraperitoneal free air is seen on these supine views. There a re no abnormal abdominal calcifications. An aortobiiliac stent graft is in place. Phleboliths are see n in the pelvis. The skeletal structures are osteopenic and appear intact. There is lumbosacral spond ylosis. IMPRESSION: Moderate to severe constipation. Electronically signed by: Andrey Anne M.D. 03/19/2021 1:50 PM
--- NOTE | 2021-03-19 14:15 | Ultrasound Report ---
ULTRASOUND RIGHT LOWER EXTREMITY ARTERIAL CLINICAL HISTORY: Right leg pain. COMPARISON STUDY: No priors. TECHNIQUE: Real-time grayscale and color Doppler sonography of the arteries of the right lower extrem ities performed from the inguinal crease to the foot. FINDINGS: There is advanced atherosclerotic calcification and irregularity of the arteries of the rig ht lower extremity. 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 There are triphasic waveforms in the common femoral artery, which is patent with velocities measuring up to 17 cm/s. The profunda femoris artery is patent with velocities measuring u p to 84 cm/s. There are triphasic arterial waveforms throughout the superficial femoral artery with v elocities measuring up to 150 cm/s. There is an aneurysm of the distal superficial femoral/popliteal artery which measures up to 4.3 cm in diameter. The patent luminal diameter measures 1.2 cm. There is nearly occlusive thrombus within the popliteal artery distal to the aneurysm with only trace flow. T his extends approximately 3 cm in length. No flow is shown within the distal popliteal artery. There is only trace flow throughout the calf vessels. Velocities within the patent portions of the poplitea l artery measure up to 16 cm/s. Velocities within the calf arteries measure up to 23 cm/s. Foci of fo rafiq occlusion are suggested within the anterior tibial, posterior tibial, and peroneal arteries. The dorsalis pedis artery is patent with velocities measuring up to 21 cm/s. There is monophasic flow wit hin the calf vessels. IMPRESSION: 1. Advanced atherosclerotic changes seen throughout the arteries of the right lower extremity. 2. 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 3. There is acute appearing thrombus within the popliteal artery just below the aneurysm which is harley rly occlusive. 4. 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 4. Only trace flow is shown within the calf arteries, and all 3 calf arteries appear to show segmenta l occlusions. 5. 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 Dictated: 03/19/2021 1:38 PM Transcribed: 03/19/2021 2:01 PM [place]orencia [id number] [email or web address] Electronically signed by: Andrey Anne M.D. 03/19/2021 2:13 PM
[2021-03-19] MEDS ORDERED: Heparin IV Adult Wt-Based Standard WITH Bolus Protocol IV STA (14:32)
[2021-03-19] MEDS ORDERED: cefTRIAXone SODIUM 1,000 MG/50 ML BAG IV STA (14:37)
[2021-03-19] MEDS ORDERED: HEPARIN SOD (PORCINE) 1000 UNIT/ML IV ONE (14:48)
[2021-03-19 14:58] LABS: Appearance Urine Clear (Clear); Bilirubin Urine Negative (Negative); Blood Urine Negative (Negative); Color Urine Yellow; Glucose Urine UA Negative (Negative); Ketones Urine Negative (Negative); Leukocyte Esterase Urine Negative (Negative); Nitrite Urine Negative (Negative); Protein Urine Negative (Negative); Specific Gravity Urine 1.016 (1.000-1.030); Urobilinogen Urine Negative (Negative)
[2021-03-19] MEDS: HEPARIN SODIUM/DEXTROSE 25,000 UNITS/500 ML BAG IV SCH (15:06)
--- NOTE | 2021-03-19 15:22 | History & Physical Report ---
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 US: Advanced atherosclerotic changes seen throughout the arteries of the right lower extremity. There is a 4.3 cm aneurysm of the distal superficial femoral/popliteal artery.3. There is acute appearing thrombus within the popliteal artery just below the aneurysm which is nearly occlusive. 4. 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 4. Only trace flow is shown within the calf arteries, and all 3 calf arteries appear to show segmental occlusions. 5. 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 Admit to PCU consult vascular - case discussed with ED provider and Dr. Vicente who recommends IV heparin and further surgical discussion to be held - will await formal vascular consult IV heparin initiated in ED percocet 1 ta b q4hr prn for moderate pain 2mg IV morphine q4hr prn Severe pain bowel regimen ordered D5NS 75cc/hr ordered x 2 L given poor oral intake Hypoalbuminemia consult face hardener given thiamine 100mg daily x [address] Anna due to poor intake Leucocytosis wbc 13k no s/sx of infection CXR :Possible atelectasis or infiltrate at the left base. - in absence of resp sx and negative procal UA negative BC pending will hold off on giving IV antibiotics at this point he does have redness to R foot; however per family has been there for weeks and likely as a result of arterial occlusion (2) Constipation: Plan: no BM in 2 weeks during previous hospital stay required golytely and relistor give milk of mag 30ml x 1 now and 2 senna -s give senna -s daily and 17g miralax monitor closely (3) T2DM (type 2 diabetes mellitus): Plan: Last a1c 7.5 08/15/20 hold metformin lantus/novolog per protocol a1c in a.m. (4) HTN (hypertension): Plan: BP stable continue coreg (5) COPD (chronic obstructive pulmonary disease): Plan: no acute exac continue flovent, prn albuterol (6) CKD (chronic kidney disease) stage 3, GFR 30-59 ml/min: Plan: Cr baseline 1.4 bun/cr 26 and 1.51 today gentle IVF x 2 L monitor bmp (7) CAD (coronary artery disease): Plan: [facility] continue atorvastatin, aspirin coreg no chest pain or sob (8) Hypomagnesemia: Plan: mag 1.6 replace monitor (9) Weakness: Plan: will need PT/OT eval once medically stable DVT ppx: Pt is on IV heparin Dispo: PCU PCP: Rafael DNR/DNI Pt was seen and examined in collaboration with Dr. Anna, please see addendum History of Present Illness Chief Complaint: Pain to RLE x 1 week; worsening confusion per OT service. 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 Of significance patient was hospitalized in January 2021 secondary to fall and lumbar compression fracture. Hospitalization was complicated secondary to encephalopathy and pneumonia. He did require subacute rehab stay at [facility] for 3 weeks. He has been home for 2 weeks. He lives with daughter and son-in-law. Son-in-law is at bedside who states they typically do not look at his feet. He was seen by directional survey drafter approximately 1 week ago when family noted redness to his dorsal aspect of right foot. Medical Lab Technician felt that has been there for a few years. Over the past week patient has been complaining of increasing pain. Since being discharged from rehab he has had physical and occupational therapy services come to the house. Occupational Therapy came today and felt a decline over the past week in regards to weakness and mental status and recommended he seek ED. In ED he remained hemodynamically stable. Given pain to right foot and redness x-ray was ordered which was negative for acute fracture. Duplex of right lower extremity revealed a 4.3 cm aneurysm of the distal superficial femoral/popliteal artery, an acute appearing thrombus within the popliteal artery just below the aneurysm which is nearly occlusive, complete occlusion of distal popliteal artery and a 2.3 cm aneurysm of the common femoral artery. According to ER physician he spoke with vascular surgery who recommended initiating IV heparin. Vascular surgery to discuss surgical options with family. Allergies Allergy/AdvReac Type Severity Reaction Status Date / Time ezetimibe [From Vytorin] AdvReac Intermediate Unknown Verified 03/19/21 15:18 simvastatin [From Vytorin] AdvReac Intermediate Unknown Verified 03/19/21 15:18 Home Medications Medication Instructions Recorded Confirmed Type albuterol sulfate 90 mcg/actuation 2 puff INHALATION Q4 PRN 01/29/21 03/19/21 History aerosol inhaler aspirin 81 mg tablet,delayed 81 mg PO QAM 01/29/21 03/19/21 History release (Aspirin Low Dose) atorvastatin 40 mg tablet 40 mg PO QAM 01/29/21 03/19/21 History carvedilol 6.25 mg tablet 6.25 mg PO BID 01/29/21 03/19/21 History fluticasone propionate 110 2 puff INHALATION BID 01/29/21 03/19/21 History mcg/actuation HFA aerosol inhaler (Flovent HFA) metformin 500 mg tablet 500 mg PO BID 01/29/21 03/19/21 History lidocaine 5 % topical patch 1 patch TRANSDERMAL QAM #15 ea 02/12/21 03/19/21 Rx oxycodone 5 mg tablet 5 mg PO Q4H PRN #10 tab 02/12/21 03/19/21 Rx acetaminophen 325 mg tablet 650 mg PO DIRECTED PRN 03/19/21 03/19/21 History (Tylenol) diclofenac sodium 1 % topical gel 2 g TOPICAL DIRECTED PRN 03/19/21 03/19/21 History lorazepam 0.5 mg tablet 0.5 mg PO HS PRN 03/19/21 03/19/21 History Past Med/Surg History Medical History Abdominal pain Aneurysm, common iliac artery S/P endovascular aneurysm surgery 05/27/06 ([place], [place]) to treat RIIA aneurysm which involved coiling/embolization of RIIA. S/P open AAA repair in 1996 in [place], [place]. Aneurysmal iliacs, without active endoleak. Aneurysmal femoral arteries. Ectasia of the pop arteries on the left. CAD (coronary artery disease) CKD (chronic kidney disease) stage 3, GFR 30-59 ml/min COPD (chronic obstructive pulmonary disease) Femoral artery aneurysm, bilateral HLD (hyperlipidemia) HTN (hypertension) Iliac artery aneurysm Sacroiliac joint pain T2DM (type 2 diabetes mellitus) Ventral hernia Surgical History History of AAA (abdominal aortic aneurysm) repair Open AAA repair 1996 History of appendectomy History of cataract surgery History of hernia repair Family History Mother Alzheimer disease Diabetes Father Myocardial infarction Heart disease Brother Coronary heart disease Hx of CABG Social History Smoking Status: Former smoker packs per day: 3; Years Smoked: 55; Smoking End Date: 1995; Hx Alcohol Use: No Hx Substance Use: No Preferred Language: Northern Irish Communication Ability: Effective Beliefs That Will Affect Care: None marital status: / Current Living Situation: Family How many Children do You have: 1 Feels Safe at Home: Yes Assistive Devices: Glasses Review of Systems Review of Systems: All systems reviewed & are unremarkable except as noted in HPI & below Physical Exam Physical Exam: Constitutional: Elderly, M, WD/WN, vitals as above, NAD, sitting up in bed, pleasant, conversing easily Head: Normocephalic, Atraumatic Eyes: PERRL, conjunctivae normal, anicteric sclerae ENMT: external ear and nose normal, oropharynx normal with dry membranes Neck: trachea midline, no thyromegaly normal visual inspection Respiratory: normal respiratory effort, lungs clear to auscultation, no wheeze, rales, rhonchi. Normal insp/exp effort, no accessory muscle use Cardiovascular: RRR, no murmur, no edema Vessels: no JVD or carotid bruit Chest: normal inspection of chest Abdomen: distended abd, normal bowel sounds, soft, mildly tender to palpation throughout, no hepatosplenomegaly Musculoskeletal: no cyanosis or clubbing, extremities motor strength 5/5 , + R dorsal foot with erythema, cap refill < 2 sec b/l, unable to palpate R pedal pulse, L pedal +1, R popliteal +! Skin: no rashes, warm and dry moderate turgor Neurologic: PERRL, EOMI, accommodation nl, no face palsy, no dysarthria CN's II-XI intact bilaterally and moves all extremities Psychiatric: A+O to self only, according to son this is his baseline, he typically does not know month/year/location given age and being retired, flat af fect Lymphatic: no cervical or axillary lymphadenopathy : deferred Results & Data Results & Data ([facility]) Vital Signs (Past 12 Hours) Vital Signs Temp Pulse Pulse Resp BP BP Pulse Ox 03/19/21 15:00 89 23 153/105 H 100 03/19/21 14:30 88 18 140/91 99 03/19/21 13:44 98 H 18 143/101 H 96 03/19/21 11:56 36.4 C L 93 H 18 123/86 97 Diagnostic Findings Chest X-Ray 03/19/21 11:54 XR chest 1V portable CLINICAL HISTORY: weakness COMPARISON STUDY: January 29, 2021 FINDINGS: No pneumothorax. No pleural effusion. Interval prominence of linear density at the left lower lung could represent atelectasis or infiltrates. Previously seen diffuse reticular opacities might represent chronic scarring versus scattered atelectasis. Evaluation is suboptimal due to rotation. Redemonstration of mediastinal prominence. Cardiac silhouette is within normal limits in size. No significant pulmonary vascular congestion.. Osseous structures: Osteopenia. Degenerative changes of the spine. Gas-filled loop of bowel are seen within left upper quadrant. IMPRESSION: 1. Possible atelectasis or infiltrate at the left base. 2. Suboptimal exam due to rotation. ACT 112: Negative or not required by law. The above report was generated using voice recognition software. It may contain grammatical, syntax or spelling errors. Electronically signed by: Leia Rowan DO 03/19/2021 1:45 PM Duplex Scan Lower Extremity Artery 03/19/21 11:54 ULTRASOUND RIGHT LOWER EXTREMITY ARTERIAL CLINICAL HISTORY: Right leg pain. COMPARISON STUDY: No priors. TECHNIQUE: Real-time grayscale and color Doppler sonography of the arteries of the right lower extremities performed from the inguinal crease to the foot. FINDINGS: There is advanced atherosclerotic calcification and irregularity of the arteries of the right lower extremity. 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 There are triphasic waveforms in the common femoral artery, which is patent with velocities measuring up to 17 cm/s. The profunda femoris artery is patent with velocities measuring up to 84 cm/s. There are triphasic arterial waveforms throughout the superficial femoral artery with velocities measuring up to 150 cm/s. There is an aneurysm of the distal superficial femoral/popliteal artery which measures up to 4.3 cm in diameter. The patent luminal diameter measures 1.2 cm. There is nearly occlusive thrombus within the popliteal artery distal to the aneurysm with only trace flow. This extends approximately 3 cm in length. No flow is shown within the distal popliteal artery. There is only trace flow throughout the calf vessels. Velocities within the patent portions of the popli teal artery measure up to 16 cm/s. Velocities within the calf arteries measure up to 23 cm/s. Foci of focal occlusion are suggested within the anterior tibial, posterior tibial, and peroneal arteries. The dorsalis pedis artery is patent with velocities measuring up to 21 cm/s. There is monophasic flow within the calf vessels. IMPRESSION: 1. Advanced atherosclerotic changes seen throughout the arteries of the right lower extremity. 2. 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 3. There is acute appearing thrombus within the popliteal artery just below the aneurysm which is nearly occlusive. 4. 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 4. Only trace flow is shown within the calf arteries, and all 3 calf arteries appear to show segmental occlusions. 5. 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 Dictated: 03/19/2021 1:38 PM Transcribed: 03/19/2021 2:01 PM [place] [id number] [email or web address] Electronically signed by: Andrey Anne M.D. 03/19/2021 2:13 PM Foot X-Ray 03/19/21 11:54 XR foot RT min 3V routine HISTORY: 81 years-old Male redness acute pain of the right foot COMPARISON: None TECHNIQUE: 3 views of the right foot FINDINGS: Demineralized appearance of the bones. Multifocal mostly mild osteoarthritis. Mild to moderate osteoarthritis of the first MTP joint. Spurring of the calcaneus. Mild soft tissue swelling of the forefoot. No acute fracture, dislocation or opaque foreign body. IMPRESSION: No acute fracture. ACT 112: Negative or not required by law. The above report was generated using voice recognition software. It may contain grammatical, syntax or spelling errors. Electronically signed by: Cordell West M.D. 03/19/2021 1:[address] 03/19/21 11:54 CT SCAN OF THE BRAIN WITHOUT IV CONTRAST CLINICAL HISTORY: Fall. COMPARISON STUDY: CT of the brain dated 02/01/2021. TECHNIQUE: Unenhanced axial CT scan of the brain is performed from the vertex to the skull base. A dose lowering technique was utilized adhering to the principles of ALARA. CT DOSE: 614.27 mGy.cm FINDINGS: Brain parenchyma: There are age-related involutional changes noting mild to moderate subcortical and periventricular microangiopathic change. There is no hemorrhage, mass effect, or evidence of acute territorial ischemia by CT criteria. Mcallister-white matter differentiation is preserved. No extra-axial fluid collection is seen. Ventricles, sulci, cisterns: Prominent secondary to involutional change. Intracranial vasculature: There is atherosclerotic calcification of the cavernous carotid and vertebral arteries. Calvarium: The skeletal structures are osteopenic. No depressed calvarial fracture is identified. Sinuses and mastoids: The visualized paranasal sinuses are clear. The mastoid air cells are well pneumatized. Orbits: The bony orbits are grossly intact. There are bilateral ocular lens implants. IMPRESSION: There is no hemorrhage, mass effect, or evidence of acute territorial ischemia by CT criteria. ACT 112: Negative or not required by law. Electronically signed by: Andrey Anne M.D. 03/19/2021 12:30 PM KUB X-Ray 03/19/21 11:54 KUB CLINICAL HISTORY: Constipation. FINDINGS: 2 AP supine abdominal radiographs are compared to study dated 02/02/2021 and correlated with abdominal CT dated 02/01/2021. There is a nonobstructed abdominal bowel gas pattern noting moderate to severe constipation. No evidence of intraperitoneal free air is seen on these supine views. There are no abnormal abdominal calcifications. An aortobiiliac stent graft is in place. Phleboliths are seen in the pelvis. The skeletal structures are osteopenic and appear intact. There is lumbosacral spondylosis. IMPRESSION: Moderate to severe constipation. Electronically signed by: Andrey Anne M.D. 03/19/2021 1:50 PM Medications Administered Medication List Magnesium Sulfate/Dextrose (Magnesium Sulfate / D5w) 1 gm in 100 mls @ 100 mls/hr IV Q1H OTILIA Stop: 03/19/21 15:26 Last Admin: 03/19/21 15:07 Dose: 100 mls/hr Documented by: [id number] Infusion: 03/19/21 14:45 Dose: 100 mls/hr Documented by: [id number] Admin: 03/19/21 13:45 Dose: 100 mls/hr Documented by: [id number] Heparin Sodium/Dextrose (Heparin Sodium/Dextrose) 25,000 units in 500 mls @ 27 mls/hr IV .[id number] OTILIA; Protocol Stop: 04/18/21 14:59 Last Admin: 03/19/21 15:06 Dose: 1,350 units/hr, 27 mls/hr Documented by: [id number] Cosigned by: [id number] Discontinued Medications Heparin Sodium (Porcine) (Heparin Sod (Porcine) 1000 Unit/Ml) 1 units IV NOW ONE Stop: 03/19/21 14:49 Last Admin: 03/19/21 15:07 Dose: 5,000 units Documented by: [id number] Cosigned by: [id number] Heparin Sodium/Dextrose (Heparin Iv Adult Wt-Based Standard With Bolus Protocol) 1 ea IV NOW STA; Protocol Stop: 03/19/21 14:33 Last Admin: 03/19/21 15:07 Dose: 1 ea Documented by: [id number] Sodium Chloride (Nss 1000ml) 1,000 mls @ 999 mls/hr IV .[id number] OTILIA Stop: 03/19/21 13:00 Last Infusion: 03/19/21 13:33 Dose: 0 mls/hr Documented by: [id number] Admin: 03/19/21 12:15 Dose: 999 mls/hr Documented by: [id number] Ceftriaxone Sodium (Rocephin) 1,000 mg in 50 mls @ 100 mls/hr IV NOW STA Stop: 03/19/21 15:06 Last Admin: 03/19/21 15:06 Dose: 100 mls/hr Documented by: [id number] ECG Rate (beats per minute): 94 Rhythm: normal sinus COVID-19 Results Results COVID-19 Adm Lab Results: RBC 4.40 M/uL (4.7-6.1) L 03/19/21 WBC 13.50 K/uL (4.8-10.8) H 03/19/21 Hgb 13.1 g/dL (14.0-18.0) L 03/19/21 Hct 39.3 % (42-52) L 03/19/21 Plt Count 223 K/uL (130-400) 03/19/21 Neutrophils (%) (Auto) 76.8 % 03/19/21 Lymphocytes (%) (Auto) 10.6 % 03/19/21 Monocytes # (Auto) 1.02 K/uL (0.11-0.59) H 03/19/21 Eosinophils # (Auto) 0.44 K/uL (0-0.5) 03/19/21 Immature Granulocyte % (Auto) 1.6 % 03/19/21 Neutrophils # (Auto) 10.38 K/uL (1.4-6.5) H 03/19/21 Lymphocytes # (Auto) 1.43 K/uL (1.2-3.4) 03/19/21 Monocytes # (Auto) 1.02 K/uL (0.11-0.59) H 03/19/21 Eosinophils # (Auto) 0.44 K/uL (0-0.5) 03/19/21 Basophils # (Auto) 0.02 K/uL (0-0.2) 03/19/21 Immature Granulocyte # (Auto) 0.21 K/uL (0.00-0.02) H 03/19/21 Na 143 mmol/L (136-145) 03/19/21 K 4.5 mmol/L (3.5-5.1) 03/19/21 Cl 113 mmol/L (98-107) H 03/19/21 CO2 22 mmol/L (21-32) 03/19/21 Anion Gap 8.0 (3-11) 03/19/21 BUN 26 mg/dl (7-18) H 03/19/21 Creatinine 1.51 mg/dl (0.6-1.4) H 03/19/21 BUN/Creatinine Ratio 17.5 (10-20) 03/19/21 Glucose Level 131 mg/dl (70-99) H 03/19/21 Ca 9.4 mg/dl (8.5-10.1) 03/19/21 Total Bilirubin 0.9 mg/dl (0.2-1) 03/19/21 AST/SGOT 11 U/L (15-37) L 03/19/21 ALT/SGPT 14 U/L (12-78) 03/19/21 Alkaline Phosphatase 113 U/L (45-117) 03/19/21 Total Protein 6.5 gm/dl (6.4-8.2) 03/19/21 Albumin 2.9 gm/dl (3.4-5.0) L 03/19/21 Globulin 3.6 gm/dl (2.5-4.0) 03/19/21 Albumin/Globulin Ratio 0.8 (0.9-2) L 03/19/21 Total CK 40 U/L (39-308) 03/19/21 Troponin I < 0.015 ng/ml (0-0.045) 03/19/21 Procalcitonin < 0.05 ng/ml (0-0.5) 03/19/21 PTT 27.4 Seconds (21.0-31.0) 03/19/21 INR 1.1 (0.9-1.1) 03/19/21 COVID-19 PCR NEGATIVE (Negative) 03/19/21 Chest X-Ray 03/19/21 Code Status & VTE Plan Code Status DNR/DNI VTE Prophylaxis Plan VTE Prophylaxis will be ordered: No Supervising Physician Co-Signing Physician Notes 81 yo M with PMH of recent lumbar compression fracture 2/2 fall status post conservative management, AAA s/p open repair 1996, right internal iliac artery aneurysm, rt internal iliac artery aneurysm w/ endovascular repair 05/27/2006 involving coiling and embolization, occluded right internal iliac artery with aneurysmal dilatation of right common iliac at 3.3 cm, left distal common iliac aneurysm 1.7cm, bilateral common femoral aneurysm R>L, COPD, HTN, HLD, CKD Stage 3a presents to ED 03/19 due to incrasing confusion and RLE pain worsening per in- home OT service. While in ED, his WBC was minimally elevated likely reactive from the worsening RLE pain, procalcitonin negative. RN the ultrasound showed complete occlusion of the distal popliteal artery and acute appearing thrombus within the popliteal artery just below the aneurysm which is nearly occlusive. Patient was complaining of RLE pain. Patient started heparin drip and vascular surgery made aware. Upon Exam: GENERAL: Alert and oriented x1 (to place only). minimal distress, on 2L. HEENT: No pallor, no icterus. Pupils equal, round and reactive to light. Oral mucosa dry. NECK: No JVD, no neck masses. HEART: S1 and S2 heard. Regular rate and rhythm. No murmur, no gallop. RESPIRATORY SYSTEM: Normal AP diameter. No accessory muscle use. No wheezing, no crackles. ABDOMEN: Soft, bowel sounds present, nontender, no distention. CENTRAL NERVOUS SYSTEM: No facial droop. Speech is clear. Minimally cooperative, somewhat confused. Moves extremities. EXTREMITIES: Right foot erythematous/cold and dorsalis pedis pulse was not palpable on right foot, patient was able to wiggle toes on the right side. BLE no edema. LLE WNL. I have seen and examined the patient and have discussed the case with the provider above. I agree with the assessment and plan as stated.
[2021-03-19] MEDS ORDERED: MoRPHine SULFATE 2 MG/ML CARP IV STA (16:15)
--- NOTE | 2021-03-19 17:48 | Ultrasound Report ---
US abdominal aortic aneurysm HISTORY: 81 years-old Male AAA abdominal aortic aneurysm COMPARISON: CT abdomen and pelvis 02/01/2021 TECHNIQUE: Multiple real-time sonographic images of the aorta were obtained assessing grayscale appea abigail, color and spectral flow FINDINGS: Study is limited secondary to patient condition and hand obscuring bowel gas. The proximal abdominal aorta measures 2.2 x 2.1 cm. The mid abdominal aorta measures 2.5 x 2.7 cm. The distal aorta is not w ell visualized and measures approximately 2.6 x 2.8 cm. aortobiiliac stent graft is better seen on co mparison CT of the abdomen and pelvis. The right common iliac artery measures 1.2 cm. The left common iliac artery measures 1.5 cm. There is diffuse atherosclerotic plaque. IMPRESSION: 1. Limited exam as above. 2. Atherosclerotic plaque without abdominal aortic aneurysm. 3. Aortobiiliac stent graft is better seen on comparison CT of the abdomen and pelvis. 4. Ectasia of the distal abdominal aorta measures up to 2.8 cm. ACT 112: Negative or not required by law. The above report was generated using voice recognition software. It may contain grammatical, syntax o r spelling errors. Electronically signed by: Cordell West M.D. 03/19/2021 5:46 PM
[2021-03-19] MEDS ORDERED: GLUCAGON FOR INJ 1 MG VIAL SQ PRN (20:55)
[2021-03-19] MEDS ORDERED: MAGNESIUM HYDROXIDE SUSP 30 ML UDC PO PRN (20:55)
[2021-03-19] MEDS ORDERED: ALBUTEROL HFA 8 GM INHALER INH PRN (20:55)
[2021-03-19] MEDS ORDERED: DEXTROSE 50% 50 ML SYRINGE IV PRN (20:55)
[2021-03-19] MEDS ORDERED: Heparin IV Adult Wt-Based Standard *NO* Bolus Protocol IV SCH (20:55)
[2021-03-19] MEDS ORDERED: ONDANSETRON INJ 2 MG/ML 2 ML VIAL IV PRN (20:55)
[2021-03-19] MEDS ORDERED: LORazepam 0.5 MG TAB PO PRN (20:55)
[2021-03-19] MEDS ORDERED: MAGNESIUM HYDROXIDE SUSP 30 ML UDC PO ONE (20:55)
[2021-03-19] MEDS ORDERED: GLUCOSE 10 TABS/TUBE PO PRN (20:55)
[2021-03-19] MEDS ORDERED: POLYETHYLENE (MIRALAX) 17 GM PACK PO PRN (20:55)
[2021-03-19] MEDS ORDERED: DICLOFENAC SOD 1% GEL 100 GM TUBE EXT PRN (20:55)
[2021-03-19] MEDS ORDERED: ALUMINUM/MAGNESIUM SUSP 30 ML UDC PO PRN (20:55)
[2021-03-19] MEDS ORDERED: ACETAMINOPHEN 325 MG TAB PO PRN (20:55)
[2021-03-19] MEDS ORDERED: GLUCOSE 40% GEL 15 GM TUBE PO PRN (20:55)
[2021-03-19] MEDS ORDERED: HEPARIN SODIUM/DEXTROSE 25,000 UNITS/500 ML BAG IV SCH (20:55)
[2021-03-19] MEDS ORDERED: CARBOHYDRATES FOR HYPOGLYCEMIA PO PRN (20:55)
[2021-03-19] MEDS ORDERED: PATIENT'S ALLERGY INFO NEEDS ENTERED SCH (21:15)
[2021-03-19] MEDS: INSULIN ASPART 100 UNITS/ML 3 ML PEN SC SCH (21:26)
[2021-03-19] MEDS ORDERED: Influenza Vaccine-High Dose (Fluzone-HD) PF 65+ 0.7 ML SYR IM ONE (22:00)
[2021-03-19] MEDS: INSULIN GLARGINE SOLOSTAR 100 UNITS/ML 3 ML PEN SC SCH (22:02)
[2021-03-19] MEDS: DOCUSATE SODIUM/SENNA 50/8.6MG TAB PO SCH (22:12)
[2021-03-19] MEDS: THIAMINE HCL 100 MG in SYRINGE 9 ML IV SCH (22:12)
[2021-03-19] MEDS: D5W AND NSS 1,000 ML IV SCH (22:13)
[2021-03-19] MEDS: carvediloL 6.25 MG TAB PO SCH (23:10)
[2021-03-20 02:57] LABS: Partial Thromboplastin Ratio > 5.3
[2021-03-20 02:59] LABS: Partial Thromboplastin Time > 139.0 Seconds (21.0-31.0)
[2021-03-20 06:06] LABS: Basophils # (auto) 0.02 K/uL (0-0.2); Basophils % (auto) 0.2 %; Eosinophils # (auto) 0.28 K/uL (0-0.5); Eosinophils % (auto) 2.6 %; Hematocrit (blood only) 36.2 % (42-52); Immature Granulocytes # (auto) 0.13 K/uL (0.00-0.02); Immature Granulocytes % (auto) 1.2 %; Lymphocytes # (auto) 1.37 K/uL (1.2-3.4); Lymphocytes % (auto) 12.5 %; Mean Corpuscular Hemoglobin 29.4 pg (25-34); Mean Corpuscular Hgb Conc 33.1 g/dL (32-36); Mean Corpuscular Volume 88.7 fL (80-100); Mean Platelet Volume 9.9 fL (7.4-10.4); Monocytes # (auto) 0.82 K/uL (0.11-0.59); Monocytes % (auto) 7.5 %; Neutrophils # (auto) 8.31 K/uL (1.4-6.5); Platelet Count 205 K/uL (130-400); RDW Coefficient of Variation 16.4 % (11.5-14.5); RDW Standard Deviation 52.4 fL (36.4-46.3); Red Blood Count 4.08 M/uL (4.7-6.1); White Blood Count 10.93 K/uL (4.8-10.8)
[2021-03-20 06:33] LABS: Partial Thromboplastin Ratio 2.1
[2021-03-20 06:37] LABS: Albumin Level 2.5 gm/dl (3.4-5.0); BUN Creatinine Ratio 18.4 (10-20); Calcium 8.9 mg/dl (8.5-10.1); Creatinine Clr Calc Pharmacy 52.5 ml/min; Est GFR (African American) 69.8 ml/min; Est GFR (Non-African American) 60.2 ml/min; Magnesium 2.5 mg/dl (1.8-2.4); Potassium 3.9 mmol/L (3.5-5.1)
[2021-03-20 06:40] LABS: Albumin Globulin Ratio 0.7 (0.9-2); Bilirubin,Total 0.6 mg/dl (0.2-1); Globulin 3.4 gm/dl (2.5-4.0); Total Protein 5.9 gm/dl (6.4-8.2)
[2021-03-20 06:45] LABS: Partial Thromboplastin Time 54.7 Seconds (21.0-31.0)
[2021-03-20 07:25] LABS: Estimated Average Glucose 126 mg/dl
[2021-03-20] MEDS: INSULIN ASPART 100 UNITS/ML 3 ML PEN SC SCH ×4 (09:19→21:01)
[2021-03-20] MEDS: INSULIN GLARGINE SOLOSTAR 100 UNITS/ML 3 ML PEN SC SCH ×2 (09:22→21:00)
[2021-03-20] MEDS: carvediloL 6.25 MG TAB PO SCH ×2 (09:39→16:54)
[2021-03-20] MEDS: ASPIRIN 81 MG ECTAB PO SCH (09:39)
[2021-03-20] MEDS: ATORVASTATIN 40 MG TAB PO SCH (09:39)
[2021-03-20] MEDS: DOCUSATE SODIUM/SENNA 50/8.6MG TAB PO SCH (09:40)
[2021-03-20] MEDS: POLYETHYLENE (MIRALAX) 17 GM PACK PO SCH (09:41)
[2021-03-20] MEDS: FLUTICASONE FUROATE 200MCG 14 PUFFS/INHALER INH SCH (09:55)
[2021-03-20] MEDS: THIAMINE HCL 100 MG in SYRINGE 9 ML IV SCH (09:56)
[2021-03-20] MEDS: D5W AND NSS 1,000 ML IV SCH (09:58)
[2021-03-20] MEDS ORDERED: SOD PHOSPHATE/SOD BIPHOSPHATE ENEMA 132 ML BTL PR STA (10:16)
--- NOTE | 2021-03-20 12:18 | Consultation ---
Date of Consultation March 20, 2021 Assessment & Plan (1) Arterial occlusion: Pt with RLE popliteal artery occlusion and large pop aneurysm at 4.5cm and R femoral art aneurysm at 2.5cm, but has maintained nerve function/movement of foot, and foot remains viable. Pt discussed with Dr Vicente. Unfortunately, pt is high risk for any open surgery and there are no endovascular surgical options for this pt d/t location of the aneurysms and occluded outflow. If pt's pain is controlled, then no intervention is necessary. If his pain becomes uncontrolled or he develops further signs of ischemia such as tissue loss, he will require open intervention. He would either require open repair of R femoral aneurysm with concomitant fem-distal bypass, or BKA of RLE, both of which would be high risk d/t multiple comorbidities. According to ED notes, pt's family members were to discuss whether they wish to proceed with surgery or attempt medical pain control. Please call if family decides to proceed and we will discuss with them further. Will also obtain LLE arterial US to eval d/t aneurysmal disease. History of Present Illness Reason for Consultation: RLE arterial occlusion Attending Physician: Venu Morales MD History of Present Illness 81 yo m with multiple medical problems, including dementia, recent falls and lumbar compression fx, DMII, HTN, COPD, AAA, iliac artery aneurysm, hyperlipidemia, CKD, CAD, EF 35-40%, admitted with RLE popliteal arterial occlusion after developing pain in R foot yesterday. Pt with dementia, so is very poor historian, and also appears to be somewhat agitated today. Most information obtained by review of previous provider notes. Pt currently states that both legs are "uncomfortable," but is unable to relate how long or when it started. He also c/o abd distention and discomfort d/t constipation. Pt denies PANCHAL, fever, chest pain, SOB, N/V, other complaints. Pt denies prior surgeries on his leg arteries. Arterial US performed yesterday in ED demonstrated 4.5cm R popliteal art aneurysm and distal pop occlusion, as well as 2.5cm R femoral art aneurysm. He also has a repaired iliac artery aneurysm. Allergies Allergy/AdvReac Type Severity Reaction Status Date / Time ezetimibe [From Vytorin] AdvReac Intermediate Unknown Verified 03/19/21 15:18 simvastatin [From Vytorin] AdvReac Intermediate Unknown Verified 03/19/21 15:18 Home Medications Medication Instructions Recorded Confirmed Type albuterol sulfate 90 mcg/actuation 2 puff INHALATION Q4 PRN 01/29/21 03/19/21 History aerosol inhaler aspirin 81 mg tablet,delayed 81 mg PO QAM 01/29/21 03/19/21 History release (Aspirin Low Dose) atorvastatin 40 mg tablet 40 mg PO QAM 01/29/21 03/19/21 History carvedilol 6.25 mg tablet 6.25 mg PO BID 01/29/21 03/19/21 History fluticasone propionate 110 2 puff INHALATION BID 01/29/21 03/19/21 History mcg/actuation HFA aerosol inhaler (Flovent HFA) metformin 500 mg tablet 500 mg PO BID 01/29/21 03/19/21 History lidocaine 5 % topical patch 1 patch TRANSDERMAL QAM #15 ea 02/12/21 03/19/21 Rx oxycodone 5 mg tablet 5 mg PO Q4H PRN #10 tab 02/12/21 03/19/21 Rx acetaminophen 325 mg tablet 650 mg PO DIRECTED PRN 03/19/21 03/19/21 History (Tylenol) diclofenac sodium 1 % topical gel 2 g TOPICAL DIRECTED PRN 03/19/21 03/19/21 History lorazepam 0.5 mg tablet 0.5 mg PO HS PRN 03/19/21 03/19/21 History Patient History Medical History Abdominal pain Aneurysm, common iliac artery S/P endovascular aneurysm surgery 05/27/06 ([place], [place]) to treat RIIA aneurysm which involved coiling/embolization of RIIA. S/P open AAA repair in 1996 in [place], [place]. Aneurysmal iliacs, without active endoleak. Aneurysmal femoral arteries. Ectasia of the pop arteries on the left. CAD (coronary artery disease) CKD (chronic kidney disease) stage 3, GFR 30-59 ml/min COPD (chronic obstructive pulmonary disease) Femoral artery aneurysm, bilateral HLD (hyperlipidemia) HTN (hypertension) Iliac artery aneurysm Sacroiliac joint pain T2DM (type 2 diabetes mellitus) Ventral hernia Surgical History History of AAA (abdominal aortic aneurysm) repair Open AAA repair 1996 History of appendectomy History of cataract surgery History of hernia repair Family History Mother Alzheimer disease Diabetes Father Myocardial infarction Heart disease Brother Coronary heart disease Hx of CABG Social History Smoking Status: Unknown if ever smoked packs per day: 3; Years Smoked: 55; Smoking End Date: 1995; Hx Alcohol Use: No Hx Substance Use: No Preferred Language: Lao Communication Ability: Impaired Communication Ability Comment: poor historian confused completed per previous admit 01/29/21 Energy Engineer Required: No Beliefs That Will Affect Care: None marital status: / Current Living Situation Comment: unknown How many Children do You have: 1 Feels Safe at Home: Yes Assistive Devices: Walker Review of Systems Review of Systems: Difficult to obtain. Negative aside from HPI Physical Exam Constitutional: WD/WN, vitals as above + thin, + frail appearing and cooperative (but agitated) ENMT: Ears: + hearing impairment (somewhat [place]) Neck: trachea midline Respiratory: normal respiratory effort, lungs clear to auscultation Auscultation: + diminished lung sounds Cardiovascular: Rate/Rhythm: regular rate and regular rhythm Vessels: femoral pulses present, posterior tibial pulses present (No doppler RLE, monophasic LLE) and dorsalis pedis pulses present (no doppler RLE, biphasic LLE); + abnormal peripheral pulses Extremities: + abnormal capillary refill (normal LLE, but RLE poor refill) Gastrointestinal (Abdomen): Inspection/Auscultation: + abdomen distended Percussion/Palpation: + abdomen tender (generalized) Musculoskeletal: Extremities: + cyanosis (mild cyanosis/pallor/coolness of R distal foot/toes, but foot warm) Skin: no rashes, warm and dry Neurologic: moves all extremities, awake and + confused; no focal motor deficits Psychiatric: Orientation: oriented to person; + not oriented to place and + not oriented to time Eye Contact: + poor eye contact Motor Behavior: + psychomotor agitation Affect: + anxious affect and + irritable affect Results & Data ([facility]) Vital Signs (Past 12 Hours) Vital Signs Temp Pulse Resp BP Pulse Ox 03/20/21 07:14 36.6 C 88 19 119/79 100 03/20/21 03:29 36.6 C 93 H 19 100/65 99
[2021-03-20 13:45] LABS: Partial Thromboplastin Ratio 1.3; Partial Thromboplastin Time 35.1 Seconds (21.0-31.0)
[2021-03-20] MEDS ORDERED: HEPARIN SOD (PORCINE) 1000 UNIT/ML IV ONE (15:00)
[2021-03-20] MEDS: HEPARIN SODIUM/DEXTROSE 25,000 UNITS/500 ML BAG IV SCH (15:13)
--- NOTE | 2021-03-20 16:10 | Ultrasound Report ---
ULTRASOUND LEFT LOWER EXTREMITY ARTERIAL CLINICAL HISTORY: Peripheral vascular disease. Assess for aneurysm. Aneurysms seen in the right lower extremity. COMPARISON STUDY: No priors. FINDINGS: Real-time grayscale and color Doppler sonography of the arteries of the left lower extremit y is performed from the inguinal crease to the foot. Ankle brachial indices were not assessed due to patient discomfort. FINDINGS: Advanced atherosclerotic plaque and irregularity are seen throughout the arteries of the le ft lower extremity. Triphasic waveforms are seen in the common femoral artery, with velocities measur ing up to 26 cm/s. A common femoral artery aneurysm measures up to 2.0 cm in diameter. The profunda f emoris artery is patent, with velocities measuring up to 40 cm/s. Triphasic waveforms are seen throug hout the superficial femoral artery, with velocities measuring up to 64 cm/s. There is mild ectasia o f the distal superficial femoral artery which measures up to 1.5 cm in diameter. There is an aneurysm of the popliteal artery which measures up to 2.7 cm in diameter. Triphasic waveforms are seen in the popliteal artery, with velocities measuring up to 23 cm/s. There are monophasic waveforms in the rafiq f arteries. Velocities in the calf vessels measure up to 39 cm/s. Question small segment occlusion of the distal left anterior tibial and left posterior tibial arteries. The dorsalis pedis artery is pat ent, with velocities measuring up to 20 cm/s. IMPRESSION: 1. Advanced atherosclerotic change with aneurysms of the left common femoral artery and the left popl iteal artery as above. 2. There are no elevated velocities to suggest focal/high-grade stenosis. 3. Question small foci of vessel occlusion within the distal anterior tibial and posterior tibial art eries in the calf. Dictated: 03/20/2021 3:30 PM Transcribed: 03/20/2021 3:53 PM Celeste [id number] [email or web address] Electronically signed by: Andrey Anne M.D. 03/20/2021 4:08 PM
--- NOTE | 2021-03-20 16:21 | Hospitalist Progress Note ---
Date of Service March 20, 2021 Assessment & Plan (1) Arterial occlusion: Plan: This is a 81 male who has significant past medical history of T2DM, HTN, HLD, CKD stage IIIa, history of AAA status post open repair 1996, 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 US: Advanced atherosclerotic changes seen throughout the arteries of the right lower extremity. There is a 4.3 cm aneurysm of the distal superficial femoral/popliteal artery.3. There is acute appearing thrombus within the popliteal artery just below the aneurysm which is nearly occlusive. 4. 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 4. Only trace flow is shown within the calf arteries, and all 3 calf arteries appear to show segmental occlusions. 5. 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 Consult vascular - case discussed with ED provider and Dr. Vicente who recommends IV heparin and further surgical discussion to be held - Appreciate vascular surgery input and recommendation If any intervention is required that would be open and the family members have to give consent for that Continue IV heparin initiated in ED Percocet 1 ta b q4hr prn for moderate pain D5NS 75cc/hr ordered x 2 L given poor oral intake Echo of the heart showed-mild concentric LVH, mild to moderate diffuse left ventricular hypokinesis with more focal hypokinesis of the inferior wall, no significant mural thrombus, EF was 35 to 40% and LV systolic function is moderately reduced Hypoalbuminemia consult house registry rn given thiamine 100mg daily x [address] Anna due to poor intake Leucocytosis wbc 13k no s/sx of infection CXR :Possible atelectasis or infiltrate at the left base. - in absence of resp sx and negative procal UA negative BC pending will hold off on giving IV antibiotics at this point he does have redness to R foot; however per family has been there for weeks and likely as a result of arterial occlusion (2) Constipation: Plan: no BM in 2 weeks during previous hospital stay required golytely and relistor give milk of mag 30ml x 1 now and 2 senna -s give senna -s daily and 17g miralax Will give Fleet enema (3) T2DM (type 2 diabetes mellitus): Plan: Last a1c 7.5 08/15/20 hold metformin lantus/novolog per protocol a1c in a.m. -6.0 (4) HTN (hypertension): Plan: BP stable continue coreg (5) COPD (chronic obstructive pulmonary disease): Plan: no acute exac continue flovent, prn albuterol (6) CKD (chronic kidney disease) stage 3, GFR 30-59 ml/min: Plan: Cr baseline 1.4 bun/cr 26 and 1.51 today gentle IVF x 2 L monitor bmp -normal (7) CAD (coronary artery disease): Plan: [facility] continue atorvastatin, aspirin coreg no chest pain or sob (8) Hypomagnesemia: Plan: mag 1.6 replace monitor (9) Weakness: Plan: will need PT/OT eval once medically stable DVT ppx: Pt is on IV heparin Dispo: PCU PCP: Rafael DNR/DNI Admission and Anticipated Discharge Date Admission Date: March 19, 2021 Subjective 03/20/2021 The patient was seen and examined in telemetry unit He complains to have pain in the abdomen without any nausea and or vomiting He has not had a bowel movement for the last few days Denies any significant pain involving the right leg Review of Systems Review of Systems: All systems reviewed and are unremarkable except as noted below Gastrointestinal: Minimal abdominal distention and discomfort Musculoskeletal: Denies any significant pain in the right lower extremity Physical Exam Physical Exam: Lying in bed with minimal discomfort in the abdomen Constitutional: well developed, well nourished and + ill appearing Eyes: PERRL, conjunctivae normal, anicteric sclerae ENMT: external ear and nose normal, oropharynx normal Neck: trachea midline, no thyromegaly Respiratory: no respiratory distress Auscultation: lungs clear to auscultation bilaterally Cardiovascular: Rate/Rhythm: regular rate and regular rhythm; not tachycardic Heart Sounds: normal S1 and normal S2; no murmur Extremities: no edema Gastrointestinal (Abdomen): Inspection/Auscultation: normal bowel sounds; abdomen not distended Percussion/Palpation: + abdomen tender (Mildly tender in the epigastrium) and abdomen soft Musculoskeletal: No acute arthritis in any joint Right lower extremities warm without any palpable pulses in tibialis posterior or anterior Neurologic: Alert, awake and oriented x3 Results & Data Results & Data ([facility]) Vital Signs (Past 12 Hours) Vital Signs Temp Pulse Pulse Resp BP Pulse Ox 03/20/21 16:05 100 03/20/21 15:54 94 H 03/20/21 15:22 36.6 C 94 H 19 131/84 100 03/20/21 12:16 36.7 C 89 19 111/73 100 03/20/21 09:00 89 03/20/21 07:14 36.6 C 88 19 119/79 100 Laboratory Results Short CBC 03/20/21 Range/Units 05:31 WBC 10.93 H (4.8-10.8) K/uL Hgb 12.0 L (14.0-18.0) g/dL Hct 36.2 L (42-52) % Plt Count 205 (130-400) K/uL BMP 03/20/21 05:31 Sodium 145 Potassium 3.9 Chloride 115 H Carbon Dioxide 24 BUN 21 H Creatinine 1.13 D Glucose 141 H Calcium 8.9 Liver Function 03/20/21 Range/Units 05:31 Total Bilirubin 0.6 (0.2-1) mg/dl AST 10 L (15-37) U/L ALT 12 (12-78) U/L Alkaline Phosphatase 101 (45-117) U/L Albumin 2.5 L (3.4-5.0) gm/dl Medications Administered Current Inpatient Medications Acetaminophen (Acetaminophen 325 Mg Tab) 650 mg PO Q4H PRN PRN Reason: Pain or Fever Stop: 04/18/21 20:54 Al Hydrox/Mg Hydrox/Simethicone (Aluminum/Magnesium Susp 30 Ml Udc) 15 ml PO Q4H PRN PRN Reason: Dyspepsia Stop: 04/18/21 20:54 Albuterol (Albuterol Hfa 8 Gm Inhaler) 2 puffs INH Q4R PRN PRN Reason: Shortness Of Breath Or Wheezing Stop: 04/18/21 20:54 Aspirin (Aspirin 81 Mg Ectab) 81 mg PO QAM [facility] Stop: 04/19/21 08:59 Last Admin: 03/20/21 09:39 Dose: 81 mg Documented by: Atorvastatin Calcium (Atorvastatin 40 Mg Tab) 40 mg PO QAM [facility] Stop: 04/19/21 08:59 Last Admin: 03/20/21 09:39 Dose: 40 mg Documented by: Carvedilol (Carvedilol 6.25 Mg Tab) 6.25 mg PO BIDM [facility] Stop: 04/18/21 21:14 Last Admin: 03/20/21 09:39 Dose: 6.25 mg Documented by: Dextrose (Dextrose 50% 50 Ml Syringe) 25 - 50 ml IV UD PRN; Protocol PRN Reason: Hypoglycemia Protocol Stop: 04/18/21 20:54 Diclofenac Sodium (Diclofenac Sod 1% Gel 100 Gm Tube) 2 gm EXT BID PRN PRN Reason: FOOT PAIN Stop: 04/18/21 20:54 Fluticasone Furoate (Fluticasone Furoate 200mcg 14 Puffs/Inhaler) 1 puffs INH DAILY OTILIA; Protocol Stop: 04/19/21 08:59 Last Admin: 03/20/21 09:55 Dose: 1 puffs Documented by: Glucagon (Glucagon For Inj 1 Mg Vial) 1 mg SQ UD PRN; Protocol PRN Reason: Hypoglycemia Protocol Stop: 04/18/21 20:54 Glucose (Glucose 10 Tabs/Tube) 4 - 8 tabs PO UD PRN; Protocol PRN Reason: Hypoglycemia Protocol Stop: 04/18/21 20:54 Glucose (Glucose 40% Gel 15 Gm Tube) 15 - 30 gm PO UD PRN; Protocol PRN Reason: Hypoglycemia Protocol Stop: 04/18/21 20:54 Heparin Sodium/Dextrose (Heparin Sodium/Dextrose) 25,000 units in 500 mls @ 20 mls/hr IV .Q24H OTILIA; Protocol Stop: 04/18/21 14:59 Last Admin: 03/20/21 15:13 Dose: 1,150 units/hr, 23 mls/hr Documented by: Thiamine HCl 100 mg/ Syringe 10 mls @ 2 mls/min IV QAM [facility] Stop: 03/21/21 09:04 Last Admin: 03/20/21 09:56 Dose: 2 mls/min Documented by: Dextrose/Sodium Chloride (D5w And Nss) 1,000 mls @ 75 mls/hr IV .[id number] [facility] Stop: 03/20/21 23:54 Last Admin: 03/20/21 09:58 Dose: 75 mls/hr Documented by: Insulin Aspart (Insulin Aspart 100 Units/Ml 3 Ml Pen) 0 units SC ACHS OT[facility] Stop: 04/18/21 21:14 Last Admin: 03/20/21 12:07 Dose: 1 units Documented by: Insulin Glargine (Insulin Glargine Solostar 100 Units/Ml 3 Ml Pen) 0 - 10 units SC BID OT[facility] Stop: 04/18/21 21:14 Last Admin: 03/20/21 09:22 Dose: 5 units Documented by: Lorazepam (Lorazepam 0.5 Mg Tab) 0.5 mg PO HS PRN PRN Reason: Sleep Stop: 04/18/21 20:54 Magnesium Hydroxide (Magnesium Hydroxide Susp 30 Ml Udc) 30 ml PO Q12H PRN PRN Reason: Constipation Stop: 04/18/21 20:54 Miscellaneous (Carbohydrates For Hypoglycemia ) 15 - 30 gm PO UD PRN PRN Reason: Hypoglycemia Protocol Stop: 04/18/21 20:54 Morphine Sulfate (Morphine Sulfate 2 Mg/Ml Carp) 2 mg IV Q4 PRN PRN Reason: severe pain Stop: 04/02/21 20:54 Ondansetron HCl (Ondansetron Inj 2 Mg/Ml 2 Ml Vial) 4 mg IV Q6H PRN PRN Reason: Nausea Stop: 04/18/21 20:54 Oxycodone/Acetaminophen (Oxycodone/Acetaminophen 5mg/325mg Tab) 1 tab PO Q4H PRN PRN Reason: moderate pain Stop: 04/02/21 20:54 Polyethylene Glycol (Polyethylene (Miralax) 17 Gm Pack) 17 gm PO DAILY PRN PRN Reason: Constipation Stop: 04/18/21 20:54 Polyethylene Glycol (Polyethylene (Miralax) 17 Gm Pack) 17 gm PO DAILY [facility] Stop: 04/19/21 08:59 Last Admin: 03/20/21 09:41 Dose: 17 gm Documented by: Senna/Docusate Sodium (Docusate Sodium/Senna 50/8.6mg Tab) 2 tab PO QAM [facility] Stop: 04/18/21 21:14 Last Admin: 03/20/21 09:40 Dose: 2 tab Documented by:
[2021-03-20] MEDS: oxyCODONE/ACETAMINOPHEN 5mg/325mg TAB PO PRN (17:59)
--- NOTE | 2021-03-20 21:42 | Electrocardiogram Report ---
Test Reason : Blood Pressure : / mmHG Vent. Rate : 094 BPM Atrial Rate : 094 BPM P-R Int : 174 ms QRS Dur : 102 ms QT Int : 358 ms P-R-T Axes : 051 062 099 degrees QTc Int : 447 ms Normal sinus rhythm Normal ECG When compared with ECG of 09-FEB-2021 20:17, No significant change was found Confirmed by Jovanny New ([id number]) on 03/20/2021 9:42:20 PM Referred By: Confirmed By:Jovanny New
[2021-03-20 22:15] LABS: Partial Thromboplastin Ratio > 5.3
[2021-03-20 22:16] LABS: Partial Thromboplastin Time > 139.0 Seconds (21.0-31.0)
[2021-03-21 00:07] LABS: Partial Thromboplastin Ratio 3.8
[2021-03-21 00:30] LABS: Partial Thromboplastin Time 99.1 Seconds (21.0-31.0)
[2021-03-21] MEDS: MoRPHine SULFATE 2 MG/ML CARP IV PRN ×4 (00:46→18:22)
[2021-03-21] MEDS: oxyCODONE/ACETAMINOPHEN 5mg/325mg TAB PO PRN ×3 (03:42→12:41)
[2021-03-21 07:20] LABS: Basophils # (auto) 0.02 K/uL (0-0.2); Basophils % (auto) 0.2 %; Eosinophils # (auto) 0.35 K/uL (0-0.5); Eosinophils % (auto) 3.3 %; Hematocrit (blood only) 29.2 % (42-52); Hemoglobin 9.9 g/dL (14.0-18.0); Immature Granulocytes # (auto) 0.15 K/uL (0.00-0.02); Immature Granulocytes % (auto) 1.4 %; Lymphocytes # (auto) 1.34 K/uL (1.2-3.4); Lymphocytes % (auto) 12.8 %; Mean Corpuscular Hgb Conc 33.9 g/dL (32-36); Mean Corpuscular Volume 85.6 fL (80-100); Mean Platelet Volume 9.9 fL (7.4-10.4); Monocytes % (auto) 8.6 %; Neutrophils # (auto) 7.69 K/uL (1.4-6.5); Neutrophils % (auto) 73.7 %; Platelet Count 191 K/uL (130-400); RDW Coefficient of Variation 16.6 % (11.5-14.5); Red Blood Count 3.41 M/uL (4.7-6.1); White Blood Count 10.45 K/uL (4.8-10.8)
[2021-03-21] MEDS: HEPARIN SODIUM/DEXTROSE 25,000 UNITS/500 ML BAG IV SCH ×2 (07:34→17:10)
[2021-03-21 07:43] LABS: Partial Thromboplastin Ratio 2.5
[2021-03-21 07:45] LABS: Partial Thromboplastin Time 65.6 Seconds (21.0-31.0)
[2021-03-21 07:55] LABS: BUN Creatinine Ratio 20.2 (10-20); Calcium 8.9 mg/dl (8.5-10.1); Creatinine Clr Calc Pharmacy 65.2 ml/min; Est GFR (African American) 90.6 ml/min; Est GFR (Non-African American) 78.2 ml/min; Potassium 3.7 mmol/L (3.5-5.1)
[2021-03-21] MEDS: ATORVASTATIN 40 MG TAB PO SCH (08:06)
[2021-03-21] MEDS: INSULIN GLARGINE SOLOSTAR 100 UNITS/ML 3 ML PEN SC SCH ×2 (08:06→20:45)
[2021-03-21] MEDS: ASPIRIN 81 MG ECTAB PO SCH (08:06)
[2021-03-21] MEDS: POLYETHYLENE (MIRALAX) 17 GM PACK PO SCH (08:06)
[2021-03-21] MEDS: carvediloL 6.25 MG TAB PO SCH ×2 (08:06→17:11)
[2021-03-21] MEDS: THIAMINE HCL 100 MG in SYRINGE 9 ML IV SCH (08:06)
[2021-03-21] MEDS: DOCUSATE SODIUM/SENNA 50/8.6MG TAB PO SCH (08:06)
[2021-03-21] MEDS: FLUTICASONE FUROATE 200MCG 14 PUFFS/INHALER INH SCH (08:07)
[2021-03-21] MEDS: INSULIN ASPART 100 UNITS/ML 3 ML PEN SC SCH ×4 (08:08→20:44)
[2021-03-21] MEDS ORDERED: oxyCODONE/ACETAMINOPHEN 10-325 TAB PO PRN (13:06)
--- NOTE | 2021-03-21 15:08 | Hospitalist Progress Note ---
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 US: Advanced atherosclerotic changes seen throughout the arteries of the right lower extremity. There is a 4.3 cm aneurysm of the distal superficial femoral/popliteal artery.3. There is acute appearing thrombus within the popliteal artery just below the aneurysm which is nearly occlusive. 4. 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 4. Only trace flow is shown within the calf arteries, and all 3 calf arteries appear to show segmental occlusions. 5. 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 Consult vascular - case discussed with ED provider and Dr. Vicente who recommends IV heparin and further surgical discussion to be held - Appreciate vascular surgery input and recommendation If any intervention is required that would be open and the family members have to give consent for that Continue IV heparin initiated in ED Duplex ultrasound showed small foci of vessel occlusion within the distal anterior tibial and posterior tibial arteries in the calf. Advanced atherosclerotic changes with aneurysms of the left common femoral artery and the left popliteal artery as mentioned in findings. Has been complaining of increasing pain with associated dusky discoloration of the anterior half of right foot including sole and the toes Discussed with vascular surgery-will be evaluated by them this afternoon or tomorrow morning again Will need possible surgery and the patient refused to have any surgery Will discuss with the family members-discussed with the son-in-law in detail. The patient does not want any surgery to be done Hypoalbuminemia consult windows infrastructure engineer given thiamine 100mg daily x [address] Anna due to poor intake Leucocytosis-likely secondary to a stress wbc 13k no s/sx of infection CXR :Possible atelectasis or infiltrate at the left base. - in absence of resp sx and negative procal UA negative BC pending-negative will hold off on giving IV antibiotics at this point he does have redness to R foot; however per family has been there for weeks and likely as a result of arterial occlusion (2) Constipation: Plan: no BM in 2 weeks during previous hospital stay required golytely and relistor give milk of mag 30ml x 1 now and 2 senna -s give senna -s daily and 17g miralax Will give Fleet enema-bowel movement (3) T2DM (type 2 diabetes mellitus): Plan: Last a1c 7.5 08/15/20 hold metformin lantus/novolog per protocol a1c in a.m. -6.0 (4) HTN (hypertension): Plan: BP stable continue coreg (5) COPD (chronic obstructive pulmonary disease): Plan: no acute exac continue flovent, prn albuterol (6) CKD (chronic kidney disease) stage 3, GFR 30-59 ml/min: Plan: bun/cr 26 and 1.51 on admission gentle IVF x 2 L and received additional intravenous fluid Creatinine has been normalized (7) CAD (coronary artery disease): Plan: Follows [facility] cardiology continue atorvastatin, aspirin coreg no chest pain or sob Echo of the heart showed-mild concentric LVH, mild to moderate diffuse left ventricular hypokinesis with more focal hypokinesis of the inferior wall, no significant mural thrombus, EF was 35 to 40% and LV systolic function is moderately reduced Denies any cardiac pain (8) Hypomagnesemia: Plan: mag 1.6 replace monitor (9) Weakness: Plan: will need PT/OT eval once medically stable DVT ppx: Pt is on IV heparin Dispo: PCU PCP: Rafael DNR/DNI Admission and Anticipated Discharge Date Admission Date: March 19, 2021 Subjective 03/20/2021 The patient was seen and examined in telemetry unit He complains to have pain in the abdomen without any nausea and or vomiting He has not had a bowel movement for the last few days Denies any significant pain involving the right leg 03/21/2021 The patient was seen and examined in telemetry unit He has been complaining of more pain in the right leg Bowel has moved and denies any abdominal pain, nausea and or vomiting Review of Systems Review of Systems: All systems reviewed and are unremarkable except as noted below Musculoskeletal: Complains a lot of pain in the right foot and lower leg Physical Exam Physical Exam: Lying in bed with pain in right leg Constitutional: well developed, well nourished and + ill appearing Eyes: PERRL, conjunctivae normal, anicteric sclerae ENMT: external ear and nose normal, oropharynx normal Neck: trachea midline, no thyromegaly Respiratory: no respiratory distress Auscultation: lungs clear to auscultation bilaterally Cardiovascular: Rate/Rhythm: regular rate and regular rhythm; not tachycardic Heart Sounds: normal S1 and normal S2; no murmur Extremities: no edema Gastrointestinal (Abdomen): Inspection/Auscultation: normal bowel sounds; abdomen not distended Percussion/Palpation: + abdomen tender (Mildly tender in the epigastrium) and abdomen soft Musculoskeletal: Right anterior half of foot is discolored, cold, rest pain and pain with palpation Neurologic: Alert and awake. Has significant dementia Results & Data Results & Data ([facility]) Vital Signs (Past 12 Hours) Vital Signs Temp Pulse Pulse Pulse Resp BP BP 03/21/21 12:03 36.3 C L 106 H 108/68 03/21/21 08:05 36.5 C 99 H 22 121/78 03/21/21 03:43 36.5 C 99 H 22 170/94 H Pulse Ox 03/21/21 12:03 98 03/21/21 08:05 98 03/21/21 03:43 100 Laboratory Results Short CBC 03/21/21 Range/Units 06:21 WBC 10.45 (4.8-10.8) K/uL Hgb 9.9 L (14.0-18.0) g/dL Hct 29.2 L (42-52) % Plt Count 191 (130-400) K/uL BMP 03/21/21 06:21 Sodium 142 Potassium 3.7 Chloride 113 H Carbon Dioxide 23 BUN 18 Creatinine 0.91 Glucose 133 H Calcium 8.9 Medications Administered Current Inpatient Medications Acetaminophen (Acetaminophen 325 Mg Tab) 650 mg PO Q4H PRN PRN Reason: Pain or Fever Stop: 04/18/21 20:54 Last Admin: 03/20/21 16:53 Dose: 650 mg Documented by: Al Hydrox/Mg Hydrox/Simethicone (Aluminum/Magnesium Susp 30 Ml Udc) 15 ml PO Q4H PRN PRN Reason: Dyspepsia Stop: 04/18/21 20:54 Albuterol (Albuterol Hfa 8 Gm Inhaler) 2 puffs INH Q4R PRN PRN Reason: Shortness Of Breath Or Wheezing Stop: 04/18/21 20:54 Aspirin (Aspirin 81 Mg Ectab) 81 mg PO QAM OTILIA Stop: 04/19/21 08:59 Last Admin: 03/21/21 08:06 Dose: 81 mg Documented by: Atorvastatin Calcium (Atorvastatin 40 Mg Tab) 40 mg PO QAM OTILIA Stop: 04/19/21 08:59 Last Admin: 03/21/21 08:06 Dose: 40 mg Documented by: Carvedilol (Carvedilol 6.25 Mg Tab) 6.25 mg PO BIDM OTILIA Stop: 04/18/21 21:14 Last Admin: 03/21/21 08:06 Dose: 6.25 mg Documented by: Dextrose (Dextrose 50% 50 Ml Syringe) 25 - 50 ml IV UD PRN; Protocol PRN Reason: Hypoglycemia Protocol Stop: 04/18/21 20:54 Diclofenac Sodium (Diclofenac Sod 1% Gel 100 Gm Tube) 2 gm EXT BID PRN PRN Reason: FOOT PAIN Stop: 04/18/21 20:54 Fluticasone Furoate (Fluticasone Furoate 200mcg 14 Puffs/Inhaler) 1 puffs INH DAILY OTILIA; Protocol Stop: 04/19/21 08:59 Last Admin: 03/21/21 08:07 Dose: 1 puffs Documented by: Glucagon (Glucagon For Inj 1 Mg Vial) 1 mg SQ UD PRN; Protocol PRN Reason: Hypoglycemia Protocol Stop: 04/18/21 20:54 Glucose (Glucose 10 Tabs/Tube) 4 - 8 tabs PO UD PRN; Protocol PRN Reason: Hypoglycemia Protocol Stop: 04/18/21 20:54 Glucose (Glucose 40% Gel 15 Gm Tube) 15 - 30 gm PO UD PRN; Protocol PRN Reason: Hypoglycemia Protocol Stop: 04/18/21 20:54 Heparin Sodium/Dextrose (Heparin Sodium/Dextrose) 25,000 units in 500 mls @ 16 mls/hr IV .Q24H OTILIA; Protocol Stop: 04/18/21 14:59 Last Titration: 03/21/21 07:45 Dose: 800 units/hr, 16 mls/hr Documented by: Insulin Aspart (Insulin Aspart 100 Units/Ml 3 Ml Pen) 0 units SC ACHS OTILIA Stop: 04/18/21 21:14 Last Admin: 03/21/21 12:42 Dose: 3 units Documented by: Insulin Glargine (Insulin Glargine Solostar 100 Units/Ml 3 Ml Pen) 0 - 10 units SC BID OTILIA Stop: 04/18/21 21:14 Last Admin: 03/21/21 08:06 Dose: 5 units Documented by: Lorazepam (Lorazepam 0.5 Mg Tab) 0.5 mg PO HS PRN PRN Reason: Sleep Stop: 04/18/21 20:54 Magnesium Hydroxide (Magnesium Hydroxide Susp 30 Ml Udc) 30 ml PO Q12H PRN PRN Reason: Constipation Stop: 04/18/21 20:54 Miscellaneous (Carbohydrates For Hypoglycemia ) 15 - 30 gm PO UD PRN PRN Reason: Hypoglycemia Protocol Stop: 04/18/21 20:54 Morphine Sulfate (Morphine Sulfate 2 Mg/Ml Carp) 2 mg IV Q4 PRN PRN Reason: severe pain Stop: 04/02/21 20:54 Last Admin: 03/21/21 14:16 Dose: 2 mg Documented by: Ondansetron HCl (Ondansetron Inj 2 Mg/Ml 2 Ml Vial) 4 mg IV Q6H PRN PRN Reason: Nausea Stop: 04/18/21 20:54 Oxycodone/Acetaminophen (Oxycodone/Acetaminophen 10-325 Tab) 1 tab PO Q4H PRN PRN Reason: Pain Stop: 04/04/21 13:05 Polyethylene Glycol (Polyethylene (Miralax) 17 Gm Pack) 17 gm PO DAILY PRN PRN Reason: Constipation Stop: 04/18/21 20:54 Polyethylene Glycol (Polyethylene (Miralax) 17 Gm Pack) 17 gm PO DAILY OTILIA Stop: 04/19/21 08:59 Last Admin: 03/21/21 08:06 Dose: 17 gm Documented by: Senna/Docusate Sodium (Docusate Sodium/Senna 50/8.6mg Tab) 2 tab PO QAM OTILIA Stop: 04/18/21 21:14 Last Admin: 03/21/21 08:06 Dose: 2 tab Documented by:
--- NOTE | 2021-03-21 15:13 | Surgery Progress Note ---
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 Outflow to the foot is very poor. Due to his medical conditions, the only thing i recommend would be an amputation if his pain is uncontrolled or tissue necrosis occurs. Discussed this with his son in law. If his conditions worsens that the above criteria are met, please call us if the family is agreeable to a right above knee amputation. Thank you very much for letting us participate in the care of this patient. Admission and Anticipated Discharge Date Admission Date: March 19, 2021 Subjective Patient complaining of pain in his right foot. He is confused at this point in time. Physical Exam Cardiovascular: Vessels: femoral pulses present, posterior tibial pulses present (doppler heard on right) and dorsalis pedis pulses present (none to doppler on right) Extremities: + abnormal capillary refill Results & Data ([facility]) Vital Signs (Past 12 Hours) Vital Signs Temp Pulse Pulse Pulse Pulse Resp BP 03/21/21 15:01 103 H 03/21/21 12:03 36.3 C L 106 H 03/21/21 08:05 36.5 C 99 H 22 03/21/21 03:43 36.5 C 99 H 22 170/94 H BP Pulse Ox 03/21/21 15:01 03/21/21 12:03 108/68 98 03/21/21 08:05 121/78 98 03/21/21 03:43 100
[2021-03-22] MEDS: MoRPHine SULFATE 2 MG/ML CARP IV PRN (00:02)
[2021-03-22] MEDS ORDERED: HYDROmorphone INJ 0.5 MG/0.5 ML SYR IV PRN (03:40)
[2021-03-22] MEDS ORDERED: oxyCODONE HCL IR 5 MG TAB (IMMEDIATE RELEASE) PO PRN ×3 (03:40→19:52)
[2021-03-22] MEDS: ACETAMINOPHEN 500 MG TAB PO SCH ×2 (05:27→17:06)
[2021-03-22 07:27] LABS: Partial Thromboplastin Ratio 2.5
[2021-03-22 07:37] LABS: Partial Thromboplastin Time 66.8 Seconds (21.0-31.0)
[2021-03-22] MEDS: INSULIN GLARGINE SOLOSTAR 100 UNITS/ML 3 ML PEN SC SCH (08:21)
[2021-03-22] MEDS: INSULIN ASPART 100 UNITS/ML 3 ML PEN SC SCH ×3 (08:21→17:06)
[2021-03-22] MEDS: HYDROmorphone INJ 0.5 MG/0.5 ML SYR IV PRN ×3 (08:24→16:10)
[2021-03-22] MEDS: POLYETHYLENE (MIRALAX) 17 GM PACK PO SCH (08:25)
[2021-03-22] MEDS: carvediloL 6.25 MG TAB PO SCH ×2 (08:25→17:06)
[2021-03-22] MEDS: ATORVASTATIN 40 MG TAB PO SCH (08:25)
[2021-03-22] MEDS: FLUTICASONE FUROATE 200MCG 14 PUFFS/INHALER INH SCH (08:25)
[2021-03-22] MEDS: ASPIRIN 81 MG ECTAB PO SCH (08:25)
[2021-03-22] MEDS: DOCUSATE SODIUM/SENNA 50/8.6MG TAB PO SCH (08:25)
--- NOTE | 2021-03-22 15:34 | Hospitalist Progress Note ---
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 US: Advanced atherosclerotic changes seen throughout the arteries of the right lower extremity. There is a 4.3 cm aneurysm of the distal superficial femoral/popliteal artery.3. There is acute appearing thrombus within the popliteal artery just below the aneurysm which is nearly occlusive. 4. 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 4. Only trace flow is shown within the calf arteries, and all 3 calf arteries appear to show segmental occlusions. 5. 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 Consult vascular - case discussed with ED provider and Dr. Vicente who recommends IV heparin and further surgical discussion to be held - Appreciate vascular surgery input and recommendation If any intervention is required that would be open and the family members have to give consent for that Continue IV heparin initiated in ED Duplex ultrasound showed small foci of vessel occlusion within the distal anterior tibial and posterior tibial arteries in the calf. Advanced atherosclerotic changes with aneurysms of the left common femoral artery and the left popliteal artery as mentioned in findings. Has been complaining of increasing pain with associated dusky discoloration of the anterior half of right foot including sole and the toes Discussed with vascular surgery-will be evaluated by them this afternoon or tomorrow morning again Will need possible surgery and the patient refused to have any surgery Will discuss with the family members-discussed with the son-in-law in detail. The patient does not want any surgery to be done His condition is getting worse with worsening discoloration of the right foot and extreme pain Discussed with the family members yesterday and will discuss with them again today for possible visit by them Will need BKA/AKA to control this pain and gangrenous effect from arterial occlusion Appreciate vascular surgery input and recommendation Hypoalbuminemia consult infantry senior sergeant given thiamine 100mg daily x [address] Anna due to poor intake Leucocytosis-likely secondary to a stress wbc 13k no s/sx of infection CXR :Possible atelectasis or infiltrate at the left base. - in absence of resp sx and negative procal UA negative BC pending-negative will hold off on giving IV antibiotics at this point he does have redness to R foot; however per family has been there for weeks and likely as a result of arterial occlusion (2) Constipation: Plan: no BM in 2 weeks during previous hospital stay required golytely and relistor give milk of mag 30ml x 1 now and 2 senna -s give senna -s daily and 17g miralax Will give Fleet enema-bowel movement (3) T2DM (type 2 diabetes mellitus): Plan: Last a1c 7.5 08/15/20 hold metformin lantus/novolog per protocol a1c in a.m. -6.0 (4) HTN (hypertension): Plan: BP stable continue coreg (5) COPD (chronic obstructive pulmonary disease): Plan: no acute exac continue flovent, prn albuterol (6) CKD (chronic kidney disease) stage 3, GFR 30-59 ml/min: Plan: bun/cr 26 and 1.51 on admission gentle IVF x 2 L and received additional intravenous fluid Creatinine has been normalized (7) CAD (coronary artery disease): Plan: Follows [facility] cardiology continue atorvastatin, aspirin coreg no chest pain or sob Echo of the heart showed-mild concentric LVH, mild to moderate diffuse left ventricular hypokinesis with more focal hypokinesis of the inferior wall, no significant mural thrombus, EF was 35 to 40% and LV systolic function is moderately reduced Denies any cardiac pain (8) Hypomagnesemia: Plan: mag 1.6 replace monitor (9) Weakness: Plan: will need PT/OT eval once medically stable DVT ppx: Pt is on IV heparin Dispo: PCU PCP: Rafael DNR/DNI Admission and Anticipated Discharge Date Admission Date: March 19, 2021 Subjective 03/20/2021 The patient was seen and examined in telemetry unit He complains to have pain in the abdomen without any nausea and or vomiting He has not had a bowel movement for the last few days Denies any significant pain involving the right leg 03/21/2021 The patient was seen and examined in telemetry unit He has been complaining of more pain in the right leg Bowel has moved and denies any abdominal pain, nausea and or vomiting 03/22/2021 The patient was seen and examined in telemetry unit He complains a lot of pain involving the right foot and the foot is cyanosed with extreme coldness He is pleasantly confused Review of Systems Review of Systems: Unobtainable due to cognitive status Physical Exam Physical Exam: Lying in bed with pain in right leg Constitutional: well developed, well nourished and + ill appearing Eyes: PERRL, conjunctivae normal, anicteric sclerae ENMT: external ear and nose normal, oropharynx normal Neck: trachea midline, no thyromegaly Respiratory: no respiratory distress Auscultation: lungs clear to auscultation bilaterally Cardiovascular: Rate/Rhythm: regular rate and regular rhythm; not tachycardic Heart Sounds: normal S1 and normal S2; no murmur Extremities: no edema Gastrointestinal (Abdomen): Inspection/Auscultation: normal bowel sounds; abdomen not distended Percussion/Palpation: + abdomen tender (Mildly tender in the epigastrium) and abdomen soft Musculoskeletal: Right foot is dusky with black gangrenous-looking area the sole and toes with extreme coldness Neurologic: Alert and awake. Pleasantly confused Results & Data Results & Data ([facility]) Vital Signs (Past 12 Hours) Vital Signs Temp Pulse Pulse Resp BP BP Pulse Ox 03/22/21 12:00 37.0 C 86 21 122/60 94 03/22/21 08:52 114 H 03/22/21 08:00 36.8 C 114 H 16 90/59 L 95 03/22/21 05:55 36.3 C L 110 H 16 84/57 L 95 Medications Administered Current Inpatient Medications Acetaminophen (Acetaminophen 500 Mg Tab) 1,000 mg PO Q8 OTILIA Stop: 04/21/21 03:59 Last Admin: 03/22/21 05:27 Dose: 1,000 mg Documented by: Al Hydrox/Mg Hydrox/Simethicone (Aluminum/Magnesium Susp 30 Ml Udc) 15 ml PO Q4H PRN PRN Reason: Dyspepsia Stop: 04/18/21 20:54 Albuterol (Albuterol Hfa 8 Gm Inhaler) 2 puffs INH Q4R PRN PRN Reason: Shortness Of Breath Or Wheezing Stop: 04/18/21 20:54 Last Admin: 03/21/21 15:44 Dose: 2 puffs Documented by: Aspirin (Aspirin 81 Mg Ectab) 81 mg PO QAM OTILIA Stop: 04/19/21 08:59 Last Admin: 03/22/21 08:25 Dose: Not Given Documented by: Atorvastatin Calcium (Atorvastatin 40 Mg Tab) 40 mg PO QAM OTILIA Stop: 04/19/21 08:59 Last Admin: 03/22/21 08:25 Dose: Not Given Documented by: Carvedilol (Carvedilol 6.25 Mg Tab) 6.25 mg PO BIDM OTILIA Stop: 04/18/21 21:14 Last Admin: 03/22/21 08:25 Dose: Not Given Documented by: Dextrose (Dextrose 50% 50 Ml Syringe) 25 - 50 ml IV UD PRN; Protocol PRN Reason: Hypoglycemia Protocol Stop: 04/18/21 20:54 Diclofenac Sodium (Diclofenac Sod 1% Gel 100 Gm Tube) 2 gm EXT BID PRN PRN Reason: FOOT PAIN Stop: 04/18/21 20:54 Last Admin: 03/21/21 17:10 Dose: 2 gm Documented by: Fluticasone Furoate (Fluticasone Furoate 200mcg 14 Puffs/Inhaler) 1 puffs INH DAILY [facility]; Protocol Stop: 04/19/21 08:59 Last Admin: 03/22/21 08:25 Dose: Not Given Documented by: Glucagon (Glucagon For Inj 1 Mg Vial) 1 mg SQ UD PRN; Protocol PRN Reason: Hypoglycemia Protocol Stop: 04/18/21 20:54 Glucose (Glucose 10 Tabs/Tube) 4 - 8 tabs PO UD PRN; Protocol PRN Reason: Hypoglycemia Protocol Stop: 04/18/21 20:54 Glucose (Glucose 40% Gel 15 Gm Tube) 15 - 30 gm PO UD PRN; Protocol PRN Reason: Hypoglycemia Protocol Stop: 04/18/21 20:54 Hydromorphone HCl (Hydromorphone Inj 0.5 Mg/0.5 Ml Syr) 0.5 mg IV Q4H PRN PRN Reason: severe breakthrough pain Stop: 04/05/21 03:39 Last Admin: 03/22/21 11:58 Dose: 0.5 mg Documented by: Heparin Sodium/Dextrose (Heparin Sodium/Dextrose) 25,000 units in 500 mls @ 15 mls/hr IV .Q24H OTILIA; Protocol Stop: 04/18/21 14:59 Last Titration: 03/22/21 07:41 Dose: 750 units/hr, 15 mls/hr Documented by: Insulin Aspart (Insulin Aspart 100 Units/Ml 3 Ml Pen) 0 units SC ACHS OTILIA Stop: 04/18/21 21:14 Last Admin: 03/22/21 11:52 Dose: 2 units Documented by: Insulin Glargine (Insulin Glargine Solostar 100 Units/Ml 3 Ml Pen) 0 - 10 units SC BID OTILIA Stop: 04/18/21 21:14 Last Admin: 03/22/21 08:21 Dose: 10 units Documented by: Lorazepam (Lorazepam 0.5 Mg Tab) 0.5 mg PO HS PRN PRN Reason: Sleep Stop: 04/18/21 20:54 Magnesium Hydroxide (Magnesium Hydroxide Susp 30 Ml Udc) 30 ml PO Q12H PRN PRN Reason: Constipation Stop: 04/18/21 20:54 Last Admin: 03/21/21 17:12 Dose: 30 ml Documented by: Miscellaneous (Carbohydrates For Hypoglycemia ) 15 - 30 gm PO UD PRN PRN Reason: Hypoglycemia Protocol Stop: 04/18/21 20:54 Ondansetron HCl (Ondansetron Inj 2 Mg/Ml 2 Ml Vial) 4 mg IV Q6H PRN PRN Reason: Nausea Stop: 04/18/21 20:54 Oxycodone HCl (Oxycodone Hcl Ir 5 Mg Tab (Immediate Release)) 10 mg PO Q6H PRN PRN Reason: mod to severe pain Stop: 04/05/21 03:39 Polyethylene Glycol (Polyethylene (Miralax) 17 Gm Pack) 17 gm PO DAILY PRN PRN Reason: Constipation Stop: 04/18/21 20:54 Polyethylene Glycol (Polyethylene (Miralax) 17 Gm Pack) 17 gm PO DAILY OTILIA Stop: 04/19/21 08:59 Last Admin: 03/22/21 08:25 Dose: Not Given Documented by: Senna/Docusate Sodium (Docusate Sodium/Senna 50/8.6mg Tab) 2 tab PO QAM OTILIA Stop: 04/18/21 21:14 Last Admin: 03/22/21 08:25 Dose: Not Given Documented by:
[2021-03-22 19:25] LABS: Partial Thromboplastin Ratio 5.2
[2021-03-22] MEDS ORDERED: SODIUM CHLORIDE 0.9% 500 ML IV ONE (19:34)
[2021-03-22 19:38] LABS: Partial Thromboplastin Time 137.7 Seconds (21.0-31.0)
[2021-03-22] MEDS ORDERED: NALOXONE HCL 0.4 MG/1 ML VIAL/CARP IV STA ×2 (19:38→19:53)
--- NOTE | 2021-03-22 19:40 | Communication Note ---
Date of Service: March 22, 2021 732 PM Made aware by RN of BP 59/39. Unable to obtain manual blood pressure. Patient only arouses to touch. NSS 500 cc bolus ordered. RN requested to hold IV Heparin. Narcan 1 dose ordered for possible opioid intoxication given opioid administration a few hours ago. RN requested to hold medical floor transfer. Improved mentation post Narcan administration as per RN. PPE : Disoriented, no respiratory distress Decreased breath sounds RRR 752PM Updated by RN of cardiac rate 40s. Patient unresponsive again as per RN. Atropine 1 dose given for symptomatic bradycardia Extra Narcan administered. Subsequent agonal breathing noted as per RN. 756PM Patient asystole on the monitor. Patient pronounced at 8:20 PM. Patient family updated of developments over the phone. I recommended an autopsy to ascertain cause of demise given sudden onset of circumstances. Patient family declined autopsy recommendation. Will relay to AM provider.
[2021-03-22] MEDS ORDERED: NALOXONE HCL 0.4 MG/1 ML VIAL/CARP ONE (19:42)
[2021-03-22] MEDS ORDERED: ATROPINE SULFATE 0.1 MG/ML 10ML SYR IV STA (19:52)
[2021-03-22] MEDS ORDERED: ATROPINE SULFATE 0.1 MG/ML 10ML SYR IV ONE (19:55)
--- NOTE | 2021-03-22 20:18 | Death Pronouncement Note ---
Date of Service March 22, 2021 Pronouncement Note Admission Date Admission Date: March 19, 2021 Date and Time of Date of : 03/22/21 Time of : 20:20 Contributing Factors (1) Arterial occlusion: (2) Constipation: (3) T2DM (type 2 diabetes mellitus): (4) HTN (hypertension): (5) COPD (chronic obstructive pulmonary disease): (6) CKD (chronic kidney disease) stage 3, GFR 30-59 ml/min: (7) CAD (coronary artery disease): (8) Hypomagnesemia: (9) Weakness: Summary Additional details: Discharge summary and certificate to be completed by Dr. Morales. Additional Data Confirmation of : no pulse, no respirations, no heart sounds and pupils fixed and dilated Family: contacted Attending physician: Venu Morales MD Was code activated?: No Autopsy requested?: No
--- NOTE | 2021-03-24 07:16 | Discharge Summary ---
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 Of significance patient was hospitalized in January 2021 secondary to fall and lumbar compression fracture. Hospitalization was complicated secondary to encephalopathy and pneumonia. He did require subacute rehab stay at [facility] for 3 weeks. He has been home for 2 weeks. He lives with daughter and son-in-law. Son-in-law is at bedside who states they typically do not look at his feet. He was seen by production maintenance mechanic approximately 1 week ago when family noted redness to his dorsal aspect of right foot. Family Day Care Provider felt that has been there for a few years. Over the past week patient has been complaining of increasing pain. Since being discharged from rehab he has had physical and occupational therapy services come to the house. Occupational Therapy came today and felt a decline over the past week in regards to weakness and mental status and recommended he seek ED. In ED he remained hemodynamically stable. Given pain to right foot and redness x-ray was ordered which was negative for acute fracture. Duplex of right lower extremity revealed a 4.3 cm aneurysm of the distal superficial femoral/popliteal artery, an acute appearing thrombus within the popliteal artery just below the aneurysm which is nearly occlusive, complete occlusion of distal popliteal artery and a 2.3 cm aneurysm of the common femoral artery. According to ER physician he spoke with vascular surgery who recommended initiating IV heparin. Vascular surgery to discuss surgical options with family. Admission Exam Per Admitting Provider Physical Exam: Constitutional: Elderly, M, WD/WN, vitals as above, NAD, sitting up in bed, pleasant, conversing easily Head: Normocephalic, Atraumatic Eyes: PERRL, conjunctivae normal, anicteric sclerae ENMT: external ear and nose normal, oropharynx normal with dry membranes Neck: trachea midline, no thyromegaly normal visual inspection Respiratory: normal respiratory effort, lungs clear to auscultation, no wheeze, rales, rhonchi. Normal insp/exp effort, no accessory muscle use Cardiovascular: RRR, no murmur, no edema Vessels: no JVD or carotid bruit Chest: normal inspection of chest Abdomen: distended abd, normal bowel sounds, soft, mildly tender to palpation throughout, no hepatosplenomegaly Musculoskeletal: no cyanosis or clubbing, extremities motor strength 5/5 , + R dorsal foot with erythema, cap refill < 2 sec b/l, unable to palpate R pedal pulse, L pedal +1, R popliteal +! Skin: no rashes, warm and dry moderate turgor Neurologic: PERRL, EOMI, accommodation nl, no face palsy, no dysarthria CN's II-XI intact bilaterally and moves all extremities Psychiatric: A+O to self only, according to son this is his baseline, he typically does not know month/year/location given age and being retired, flat affect Lymphatic: no cervical or axillary lymphadenopathy : deferred Principal Diagnosis The patient on 03/22/2021 at 2020hours: Causes of : Coronary artery disease Atherosclerotic cardiovascular disease Chronic obstructive pulmonary disease Chronic kidney disease Arterial Occlusion right leg Discharge Exam Constitutional well developed, well nourished and + ill appearing Eyes PERRL, conjunctivae normal, anicteric sclerae ENMT external ear and nose normal, oropharynx normal Neck trachea midline, no thyromegaly Respiratory no respiratory distress Auscultation: lungs clear to auscultation bilaterally Cardiovascular Rate/Rhythm: regular rate and regular rhythm; not tachycardic Heart Sounds: normal S1 and normal S2; no murmur Extremities: no edema Gastrointestinal (Abdomen) Inspection/Auscultation: normal bowel sounds; abdomen not distended Percussion/Palpation: + abdomen tender (Mildly tender in the epigastrium) and abdomen soft Discharge Data Allergies Allergy/AdvReac Type Severity Reaction Status Date / Time ezetimibe [From Vytorin] AdvReac Intermediate Unknown Verified 03/19/21 15:18 simvastatin [From Vytorin] AdvReac Intermediate Unknown Verified 03/19/21 15:18 Consultations 03/19/21 14:32 Consult Vascular Surgery Stat 03/19/21 14:56 ED Decision to Admit Stat Ordered Studies 03/19/21 11:54 CT head/brain wo con Stat US arterial duplex LE RT Stat 03/19/21 14:37 US abdominal aortic aneurysm Stat 03/20/21 13:52 US arterial duplex LE LT Routine Hospital Course (1) Arterial occlusion: This is a 81 male who has significant past medical history of T2DM, HTN, HLD, CKD stage IIIa, history of AAA status post open repair 1996, 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 US: Advanced atherosclerotic changes seen throughout the arteries of the right lower extremity. There is a 4.3 cm aneurysm of the distal superficial femoral/popliteal artery.3. There is acute appearing thrombus within the popliteal artery just below the aneurysm which is nearly occlusive. 4. 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 4. Only trace flow is shown within the calf arteries, and all 3 calf arteries appear to show segmental occlusions. 5. 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 Consult vascular - case discussed with ED provider and Dr. Vicente who recommends IV heparin and further surgical discussion to be held - Appreciate vascular surgery input and recommendation If any intervention is required that would be open and the family members have to give consent for that Continue IV heparin initiated in ED Duplex ultrasound showed small foci of vessel occlusion within the distal anterior tibial and posterior tibial arteries in the calf. Advanced atherosclerotic changes with aneurysms of the left common femoral artery and the left popliteal artery as mentioned in findings. Has been complaining of increasing pain with associated dusky discoloration of the anterior half of right foot including sole and the toes Discussed with vascular surgery-will be evaluated by them this afternoon or tomorrow morning again Will need possible surgery and the patient refused to have any surgery Will discuss with the family members-discussed with the son-in-law in detail. The patient does not want any surgery to be done His condition is getting worse with worsening discoloration of the right foot and extreme pain Discussed with the family members yesterday and will discuss with them again today for possible visit by them Will need BKA/AKA to control this pain and gangrenous effect from arterial occlusion Appreciate vascular surgery input and recommendation Hypoalbuminemia consult beam sealer given thiamine 100mg daily x [address] Anna due to poor intake Leucocytosis-likely secondary to a stress wbc 13k no s/sx of infection CXR :Possible atelectasis or infiltrate at the left base. - in absence of resp sx and negative procal UA negative BC pending-negative will hold off on giving IV antibiotics at this point he does have redness to R foot; however per family has been there for weeks and likely as a result of arterial occlusion (2) Constipation: no BM in 2 weeks during previous hospital stay required golytely and relistor give milk of mag 30ml x 1 now and 2 senna -s give senna -s daily and 17g miralax Will give Fleet enema-bowel movement (3) T2DM (type 2 diabetes mellitus): Last a1c 7.5 08/15/20 hold metformin lantus/novolog per protocol a1c in a.m. -6.0 (4) HTN (hypertension): BP stable continue coreg (5) COPD (chronic obstructive pulmonary disease): no acute exac continue flovent, prn albuterol (6) CKD (chronic kidney disease) stage 3, GFR 30-59 ml/min: bun/cr 26 and 1.51 on admission gentle IVF x 2 L and received additional intravenous fluid Creatinine has been normalized (7) CAD (coronary artery disease): Follows [facility] cardiology continue atorvastatin, aspirin coreg no chest pain or sob Echo of the heart showed-mild concentric LVH, mild to moderate diffuse left ventricular hypokinesis with more focal hypokinesis of the inferior wall, no significant mural thrombus, EF was 35 to 40% and LV systolic function is moderately reduced Denies any cardiac pain (8) Hypomagnesemia: mag 1.6 replace monitor (9) Weakness: will need PT/OT eval once medically stable DVT ppx: Pt is on IV heparin Dispo: PCU PCP: Rafael DNR/DNI Total Time Total Time Spent Total Time Spent (In Minutes): 35 minutes Discharge Plan Discharge Items Patient Disposition: Other Date/Time: 03/22/21 20:20
--- NOTE | 2021-04-02 10:43 | Coding Query ---
To promote full compliance with coding requirements relating to patient care, provider participation is requested in all cases of unit secretary uncertainty. Please assist us with the question(s) below: Coding Question(s): The diagnosis below was documented in the Addendum on the 03/22/21 Progress Note, then subsequently fell off all further documentation. Please indicate if it is still a possible diagnosis or ruled out. Physician's Response(s): METABOLIC ENCEPHALOPATHY complicated by dementia and pain medications ( ) Diagnosed and POA ( ) Diagnosed and not POA ( ) Ruled out ( + ) Other (please specify) Documented on 03/22/2021. The patient .Do not want and more addendum to the note. ) MTDD
== END 2021-03-22 22:17 | disposition expired | DRG 299 ==
LOC: ED 11:41 → SUATTDRO 15:12 → 2S 15:12